=== PATIENT | female | born 1950 | race Hispanic/Latino ===

== ENCOUNTER → 2017-04-30 | Outpatient (CLI) | payer OTHER, MEDICARE ==
[~2017-04-30] MED LIST: ALBU8.5H8 PO; ATOR40TA71 PO; AZIT500T4 PO; CALC-724 PO; LEVO150T11 PO; OLAN10TA20 PO; RAMI2.5C15 PO; SITA100T12 PO; TERB250T51 PO; ZINC50TA64 PO
[2017-04-30 14:18] LABS: ALANINE AMINOTRANSFERASE 39 U/L (12-78); ASPARTATE AMINOTRANSFERASE 24 U/L (10-37)
== END | disposition home or self-care (01) ==
LOC: LAB 13:23
PROVIDERS: ATTEND Podiatrist
DX: B35.1 Tinea unguium (principal)
CPT/HCPCS: 36415; 84450; 84460

== ENCOUNTER 2017-06-13 12:23 | Inpatient (IN) | payer OTHER, MEDICARE ==
[~2017-06-13] VITALS: Ht 147.3 cm; Wt 71.5 kg
[2017-06-13 00:30] VITALS: BP 135/64
[2017-06-13] MEDS ORDERED: IPRATROPIUM/ALBUTEROL SULFATE 3 ML SOLUTION IH ONE (12:58)
[2017-06-13 13:12] LABS: APPEARANCE,URINE Clear (CLEAR); BILIRUBIN,URINE Negative (NEGATIVE); COLOR,URINE Yellow (YELLOW); GLUCOSE, URINE (UA) Negative (NEGATIVE); KETONES,URINE Negative (NEGATIVE); LEUKOCYTE ESTERASE ,URINE Trace (NEGATIVE); NITRATE,URINE Negative (NEGATIVE); OCCULT BLOOD,URINE Negative (NEGATIVE); PROTEIN,URINE Negative (NEGATIVE); UROBILINOGEN,URINE 0.2 mg/dL (0.2-1.0)
[2017-06-13 13:15] LABS: ABG BASE EXCESS 1.4 mmol/L (-2.0-3.0); ABG HCO3 25.7 mmol/L (21.0-28.0); ABG OXYGEN SATURATION 89.1 % (95.0-99.0); ABG PCO2 40 mmHg (32-45)
[2017-06-13 13:43] LABS: BASOPHILS % (AUTO) 0.4 % (0.0-5.0); EOSINOPHILS % (AUTO) 2.5 % (0.0-8.0); LYMPHOCYTES % (AUTO) 25.1 % (21.0-51.0); MEAN CORPUSCULAR HEMOGLOBIN 30.2 pg (27.0-33.0); MEAN CORPUSCULAR HGB CONC 35.8 g/dL (32.0-36.0); MEAN CORPUSCULAR VOLUME 84.4 fL (79-99); MONOCYTES % (AUTO) 11.4 % (3.0-13.0); NEUTROPHILS % (AUTO) 60.6 % (40.0-77.0); PLATELET COUNT (AUTO) 211 K/uL (130-400); RED CELL DISTRIBUTION WIDTH 13.1 % (11.0-15.5); WHITE BLOOD COUNT (AUTO) 9.8 K/uL (4.8-10.8)
[2017-06-13 13:48] LABS: BACTERIA,URINE Few /HPF (None Seen); RBC,URINE None Seen /HPF (0-1); SQUAMOUS EPITHELIAL CELL,UR 0-2 /HPF (0-2); WBC,URINE 0-1 /HPF (0-1)
[2017-06-13 13:50] LABS: CREATININE 0.9 mg/dL (0.5-1.5); POTASSIUM 4.3 mmol/L (3.5-5.1)
[2017-06-13 13:55] LABS: ALBUMIN 2.9 g/dL (3.5-5.0); BILIRUBIN,TOTAL 0.4 mg/dL (0.2-1.0); INR 0.95 (0.85-1.15); PARTIAL THROMBOPLASTIN TIME 25.5 SEC (26.3-35.5); TOTAL PROTEIN, SERUM 7.5 g/dL (6.0-8.3)
[2017-06-13 16:00] VITALS: BP 138/58
[2017-06-13] MEDS ORDERED: MAGNESIUM CITRATE 296 ML SOLUTION PO SCH (17:00)
[2017-06-13] MEDS ORDERED: SODIUM CHLORIDE 0.9% 10 ML VIAL IVP SCH (17:00)
[2017-06-13] MEDS ORDERED: ACETAMINOPHEN 325 MG TAB PO PRN ×2 (17:00)
[2017-06-13] MEDS ORDERED: ONDANSETRON HCL 4 MG/2 ML VIAL IVP PRN (17:00)
[2017-06-13] MEDS: GUAIFENESIN SUGAR-FREE 100 MG/5 ML UDCUP PO PRN (17:09)
[2017-06-13] MEDS: METHYLPREDNISOLONE SOD SUCC 125MG/2ML VIAL IVP SCH (17:09)
[2017-06-13] MEDS: IPRATROPIUM/ALBUTEROL SULFATE 3 ML SOLUTION IH SCH ×2 (18:26→22:10)
[2017-06-13 19:20] VITALS: BP 139/61
[2017-06-14] MEDS: IPRATROPIUM/ALBUTEROL SULFATE 3 ML SOLUTION IH SCH ×4 (01:58→13:50)
[2017-06-14] MEDS ORDERED: POTASSIUM CHLORIDE 10% ELIXIR 20 MEQ/15 ML UDCUP PO PRN (02:00)
[2017-06-14] MEDS ORDERED: POTASSIUM CHLORIDE 20 MEQ ERTAB PO PRN (02:00)
[2017-06-14] MEDS ORDERED: GLUCAGON 1MG KIT 1 MG ML IM PRN (02:00)
[2017-06-14] MEDS ORDERED: LIDOCAINE HCL-MPF 1% 2ML VIAL IVP PRN (02:00)
[2017-06-14] MEDS ORDERED: POTASSIUM CHLORIDE 20MEQ/100ML 100 ML IV PRN (02:00)
[2017-06-14] MEDS ORDERED: DEXTROSE 50%-WATER 50 ML DISP.SYRIN IV PRN (02:00)
[2017-06-14] MEDS: METHYLPREDNISOLONE SOD SUCC 125MG/2ML VIAL IVP SCH ×3 (02:17→16:41)
[2017-06-14 03:40] VITALS: BP 118/54
[2017-06-14 04:05] LABS: HEMATOCRIT 40.7 % (36-48); MEAN CORPUSCULAR HEMOGLOBIN 29.2 pg (27.0-33.0); MEAN CORPUSCULAR HGB CONC 34.1 g/dL (32.0-36.0); MEAN CORPUSCULAR VOLUME 85.8 fL (79-99); PLATELET COUNT (AUTO) 228 K/uL (130-400); RED BLOOD CELL COUNT(AUTO) 4.74 MIL/uL (4.00-5.50); RED CELL DISTRIBUTION WIDTH 13.1 % (11.0-15.5); WHITE BLOOD COUNT (AUTO) 7.7 K/uL (4.8-10.8)
[2017-06-14 04:15] LABS: POTASSIUM 4.2 mmol/L (3.5-5.1)
[2017-06-14] MEDS: INSULIN HUMULIN R 100 UNIT/ML 3ML SQ SCH ×4 (06:14→20:53)
[2017-06-14 08:00] VITALS: BP 139/57
[2017-06-14] MEDS: AZITHROMYCIN 500MG+NS 250ML 250 ML IV SCH (08:15)
[2017-06-14] MEDS: GUAIFENESIN SUGAR-FREE 100 MG/5 ML UDCUP PO PRN ×2 (08:15→20:25)
[2017-06-14] MEDS: FAMOTIDINE 20MG TAB 20 MG TAB PO SCH ×2 (08:15→20:26)
[2017-06-14 11:00] VITALS: BP 131/56
[2017-06-14] MEDS ORDERED: IOPAMIDOL-370 100 ML VIAL IV ONE (12:00)
[2017-06-14] MEDS ORDERED: ZINC50TA64 PO (13:51)
[2017-06-14] MEDS ORDERED: OLAN10TA20 PO (13:51)
[2017-06-14] MEDS ORDERED: ATOR40TA71 PO (13:51)
[2017-06-14] MEDS ORDERED: LEVO150T11 PO (13:51)
[2017-06-14] MEDS ORDERED: TERB250T51 PO (13:51)
[2017-06-14] MEDS ORDERED: CALC-724 PO (13:51)
[2017-06-14] MEDS ORDERED: ALBU8.5H8 PO (13:51)
[2017-06-14] MEDS ORDERED: SITA100T12 PO (13:51)
[2017-06-14] MEDS ORDERED: RAMI2.5C15 PO (13:51)
[2017-06-14 16:00] VITALS: BP 136/63
[2017-06-14 19:25] VITALS: BP 109/63
[2017-06-14] MEDS: ATORVASTATIN CALCIUM 40 MG TABLET PO SCH (20:26)
[2017-06-14] MEDS: OLANZAPINE 5 MG TAB PO SCH (20:26)
[2017-06-15 00:20] VITALS: BP 124/54
[2017-06-15] MEDS: METHYLPREDNISOLONE SOD SUCC 125MG/2ML VIAL IVP SCH ×3 (01:45→17:24)
[2017-06-15 03:20] VITALS: BP 134/64
[2017-06-15] MEDS: INSULIN HUMULIN R 100 UNIT/ML 3ML SQ SCH ×4 (06:14→22:06)
[2017-06-15 07:59] VITALS: BP 144/57
[2017-06-15] MEDS: TERBINAFINE HCL 250 MG PO SCH (09:00)
[2017-06-15] MEDS: CALCIUM 600 + VITAMIN D 400 TABLET PO SCH (09:30)
[2017-06-15] MEDS: LEVOTHYROXINE 150 MCG TABLET PO SCH (09:30)
[2017-06-15] MEDS: LINAGLIPTIN 5 MG TABLET PO SCH (09:31)
[2017-06-15] MEDS: LISINOPRIL 10 MG TABLET PO SCH (09:31)
[2017-06-15] MEDS: FAMOTIDINE 20MG TAB 20 MG TAB PO SCH ×2 (09:31→21:58)
[2017-06-15] MEDS: AZITHROMYCIN 500MG+NS 250ML 250 ML IV SCH (09:35)
[2017-06-15] MEDS ORDERED: AZIT500T4 PO (10:09)
[2017-06-15 11:30] VITALS: BP 132/83
[2017-06-15 16:00] VITALS: BP 148/46
[2017-06-15 19:25] VITALS: BP 157/71
[2017-06-15] MEDS: OLANZAPINE 5 MG TAB PO SCH (21:58)
[2017-06-15] MEDS: ATORVASTATIN CALCIUM 40 MG TABLET PO SCH (21:58)
[2017-06-15] MEDS: GUAIFENESIN SUGAR-FREE 100 MG/5 ML UDCUP PO PRN (21:58)
[2017-06-16 00:50] VITALS: BP 147/73
[2017-06-16] MEDS: METHYLPREDNISOLONE SOD SUCC 125MG/2ML VIAL IVP SCH ×2 (01:28→09:23)
[2017-06-16 04:15] VITALS: BP 151/73
[2017-06-16 07:30] VITALS: BP 146/76
[2017-06-16] MEDS: INSULIN HUMULIN R 100 UNIT/ML 3ML SQ SCH (07:30)
[2017-06-16] MEDS: TERBINAFINE HCL 250 MG PO SCH (09:00)
[2017-06-16] MEDS: AZITHROMYCIN 500MG+NS 250ML 250 ML IV SCH (09:22)
[2017-06-16] MEDS: LEVOTHYROXINE 150 MCG TABLET PO SCH (09:23)
[2017-06-16] MEDS: LINAGLIPTIN 5 MG TABLET PO SCH (09:23)
[2017-06-16] MEDS: LISINOPRIL 10 MG TABLET PO SCH (09:23)
[2017-06-16] MEDS: CALCIUM 600 + VITAMIN D 400 TABLET PO SCH (09:23)
[2017-06-16] MEDS: FAMOTIDINE 20MG TAB 20 MG TAB PO SCH (09:24)
[2017-06-16 11:00] VITALS: BP 139/61
== END 2017-06-16 12:25 | disposition home or self-care (01) | DRG 202 ==
LOC: EDH 12:23 → EDHIP 14:19 → OBSVTOIN 14:19 → 3AH 16:04
PROVIDERS: ADMIT Family Medicine; ATTEND Family Medicine
DX: J20.9 Acute bronchitis, unspecified (principal); E44.1 Mild protein-calorie malnutrition; E66.01 Morbid (severe) obesity due to excess calories; E03.9 Hypothyroidism, unspecified; E11.9 Type 2 diabetes mellitus without complications; E78.5 Hyperlipidemia, unspecified; F31.9 Bipolar disorder, unspecified; F41.9 Anxiety disorder, unspecified; I10 Essential (primary) hypertension; M81.0 Age-related osteoporosis without current pathological fracture; R09.02 Hypoxemia; Z77.22 Contact with and (suspected) exposure to environmental tobacco smoke (acute) (chronic); Z85.3 Personal history of malignant neoplasm of breast; Z90.11 Acquired absence of right breast and nipple; Z68.33 Body mass index [BMI] 33.0-33.9, adult; Z88.0 Allergy status to penicillin
CPT/HCPCS: 36415; 36600; 71046; 71275; 80048; 80053; 81001; 82550; 82803; 82948; 83605; 83880; 84484; 85025; 85027; 85610; 85730; 87804; 93005; 94640; 94664; J0456; J1815; J2930; Q9967

== ENCOUNTER 2018-02-20 16:36 | Emergency (ER) | payer OTHER, MEDICARE ==
[~2018-02-20 16:36] MED LIST changes: -RAMI2.5C15 PO; +RAMI2.5C16 PO
[2018-02-20] MEDS ORDERED: KETOROLAC TROMETHAMINE 30MG/ML ONE (18:57)
== END 2018-02-20 20:15 | disposition home or self-care (01) ==
LOC: EDH 16:36
DX: M17.11 Unilateral primary osteoarthritis, right knee (principal); F31.9 Bipolar disorder, unspecified; E11.9 Type 2 diabetes mellitus without complications; E78.5 Hyperlipidemia, unspecified; E07.9 Disorder of thyroid, unspecified; M81.0 Age-related osteoporosis without current pathological fracture; Z88.0 Allergy status to penicillin
CPT/HCPCS: 73562; 96372; 99283; J1885

== ENCOUNTER 2018-09-17 12:33 | Emergency (ER) | payer OTHER, MEDICARE ==
[2018-09-17] MEDS ORDERED: DEXAMETHASONE SOD PHOSPHATE 10MG/ML 1ML VIAL ONE (13:08)
[2018-09-17] MEDS ORDERED: KETOROLAC TROMETHAMINE 60 MG/2 ML VIAL ONE (13:08)
[2018-09-17] MEDS ORDERED: LIDOCAINE 5% TOPICAL PATCH TP ONE (13:08)
== END 2018-09-17 14:18 | disposition home or self-care (01) ==
LOC: EDH 12:33
DX: G89.29 Other chronic pain (principal); M54.5 Low back pain; F41.9 Anxiety disorder, unspecified; F31.9 Bipolar disorder, unspecified; E11.9 Type 2 diabetes mellitus without complications; E78.5 Hyperlipidemia, unspecified; M81.0 Age-related osteoporosis without current pathological fracture; E07.9 Disorder of thyroid, unspecified; Z90.49 Acquired absence of other specified parts of digestive tract; Z88.0 Allergy status to penicillin
CPT/HCPCS: 72100; 96372 ×2; 99284; J1100; J1885

== ENCOUNTER 2019-03-07 13:11 | Emergency (ER) | payer OTHER, MEDICARE | END 2019-03-07 14:57 | disposition home or self-care (01) | LOC: EDH 13:11 | DX: R04.0 Epistaxis (principal); M81.0 Age-related osteoporosis without current pathological fracture; E78.5 Hyperlipidemia, unspecified; E11.9 Type 2 diabetes mellitus without complications; F31.9 Bipolar disorder, unspecified; F41.9 Anxiety disorder, unspecified; E07.9 Disorder of thyroid, unspecified; Z88.0 Allergy status to penicillin ==

== ENCOUNTER → 2020-07-13 | Outpatient (CLI) | payer OTHER, MEDICARE ==
[~2020-07-13] MED LIST changes: +CALC-1158 PO; -CALC-724 PO; -RAMI2.5C16 PO; +RAMI2.5C55 PO
== END | disposition home or self-care (01) ==
LOC: SHCH 12:52
PROVIDERS: ATTEND Internal Medicine Cardiovascular Disease
DX: R07.9 Chest pain, unspecified (principal)
CPT/HCPCS: 93306; 93356

== ENCOUNTER 2021-04-26 15:24 | Emergency (ER) | payer OTHER, MEDICARE ==
[~2021-04-26] VITALS: Ht 147.3 cm; Wt 74.8 kg
[~2021-04-26 15:24] MED LIST changes: -OLAN10TA20 PO; +OLAN10TA73 PO; -TERB250T51 PO; +TERB250T89 PO
[2021-04-26 17:40] LABS: BASOPHILS % (AUTO) 0.5 % (0.0-5.0); EOSINOPHILS % (AUTO) 2.3 % (0.0-8.0); HEMATOCRIT 39.6 % (36-48); LYMPHOCYTES % (AUTO) 26.1 % (21.0-51.0); MEAN CORPUSCULAR HEMOGLOBIN 29.3 pg (27.0-33.0); MEAN CORPUSCULAR HGB CONC 32.8 g/dL (32.0-36.0); MEAN CORPUSCULAR VOLUME 89.4 fL (79-99); MONOCYTES % (AUTO) 8.9 % (3.0-13.0); NEUTROPHILS % (AUTO) 61.7 % (40.0-77.0); PLATELET COUNT (AUTO) 249 K/uL (130-400); RED BLOOD CELL COUNT(AUTO) 4.43 MIL/uL (4.00-5.50); RED CELL DISTRIBUTION WIDTH 12.9 % (11.0-15.5); WHITE BLOOD COUNT (AUTO) 12.1 K/uL (4.8-10.8)
[2021-04-26 17:52] LABS: POTASSIUM 4.1 mmol/L (3.5-5.1)
[2021-04-26] MEDS ORDERED: AMLODIPINE 5 MG TAB PO ONE (18:00)
[2021-04-26 18:01] LABS: BILIRUBIN,TOTAL 0.2 mg/dL (0.2-1.0); TOTAL PROTEIN, SERUM 8.4 g/dL (6.0-8.3)
[2021-04-26] MEDS ORDERED: ACET-2247 PO (18:52)
[2021-04-26] MEDS ORDERED: CYCL10TA16 PO (18:52)
[2021-04-26 19:04] VITALS: BP 147/60
== END 2021-04-26 19:17 | disposition home or self-care (01) ==
LOC: EDH 15:24
DX: S20.212A Contusion of left front wall of thorax, initial encounter (principal); S80.02XA Contusion of left knee, initial encounter; E11.9 Type 2 diabetes mellitus without complications; E78.00 Pure hypercholesterolemia, unspecified; F03.90 Unspecified dementia, unspecified severity, without behavioral disturbance, psychotic disturbance, mood disturbance, and anxiety; F31.9 Bipolar disorder, unspecified; I10 Essential (primary) hypertension; Z88.0 Allergy status to penicillin; Z79.84 Long term (current) use of oral hypoglycemic drugs; W18.39XA Other fall on same level, initial encounter; Y93.89 Activity, other specified; Y92.89 Other specified places as the place of occurrence of the external cause; Y99.8 Other external cause status
CPT/HCPCS: 36415; 71250; 73562; 80053; 84484; 85025; 93005

== ENCOUNTER 2021-08-25 18:18 | Emergency (ER) | payer OTHER, MEDICARE ==
[~2021-08-25] VITALS: Ht 152.4 cm; Wt 75.7 kg
[~2021-08-25 18:18] MED LIST changes: +ACET-2247 PO; +CYCL10TA16 PO
[2021-08-25 18:57] LABS: BASOPHILS % (AUTO) 0.4 % (0.0-5.0); EOSINOPHILS % (AUTO) 2.4 % (0.0-8.0); HEMATOCRIT 40.6 % (36-48); LYMPHOCYTES % (AUTO) 24.3 % (21.0-51.0); MEAN CORPUSCULAR HEMOGLOBIN 28.9 pg (27.0-33.0); MEAN CORPUSCULAR HGB CONC 32.8 g/dL (32.0-36.0); MEAN CORPUSCULAR VOLUME 88.1 fL (79-99); MONOCYTES % (AUTO) 8.3 % (3.0-13.0); NEUTROPHILS % (AUTO) 64.1 % (40.0-77.0); PLATELET COUNT (AUTO) 262 K/uL (130-400); RED BLOOD CELL COUNT(AUTO) 4.61 MIL/uL (4.00-5.50); WHITE BLOOD COUNT (AUTO) 13.4 K/uL (4.8-10.8)
[2021-08-25 19:11] LABS: CREATININE 1.3 mg/dL (0.5-1.5); POTASSIUM 3.7 mmol/L (3.5-5.1)
[2021-08-25 19:16] LABS: ALBUMIN 3.5 g/dL (3.5-5.0); BILIRUBIN,TOTAL 0.3 mg/dL (0.2-1.0); TOTAL PROTEIN, SERUM 7.9 g/dL (6.0-8.3)
[2021-08-25] MEDS ORDERED: AZITHROMYCIN 250 MG TABLET PO ONE (21:00)
[2021-08-25] MEDS ORDERED: AZIT1PAC7 PO (21:36)
[2021-08-25] MEDS ORDERED: LEVA1.2525 IH (21:36)
[2021-08-25 21:44] VITALS: BP 139/45
== END 2021-08-25 21:56 | disposition home or self-care (01) ==
LOC: EDH 18:18
DX: J44.1 Chronic obstructive pulmonary disease with (acute) exacerbation (principal); Z20.822 Contact with and (suspected) exposure to COVID-19; E11.9 Type 2 diabetes mellitus without complications; E78.00 Pure hypercholesterolemia, unspecified; F03.90 Unspecified dementia, unspecified severity, without behavioral disturbance, psychotic disturbance, mood disturbance, and anxiety; I10 Essential (primary) hypertension; M19.90 Unspecified osteoarthritis, unspecified site; Z79.84 Long term (current) use of oral hypoglycemic drugs; Z85.3 Personal history of malignant neoplasm of breast; Z88.0 Allergy status to penicillin
CPT/HCPCS: 36415; 71045; 80053; 83605; 84484; 85025; 87040 ×2; 87635; 87804 ×2; 93005; 99285; C9803

== ENCOUNTER 2021-09-20 18:50 | Emergency (ER) | payer OTHER, MEDICARE ==
[~2021-09-20] VITALS: Ht 147.3 cm; Wt 80.7 kg
[~2021-09-20 18:50] MED LIST changes: +AZIT1PAC7 PO; +KETO10TA2 PO; +LEVA1.2525 IH
[2021-09-20 19:39] LABS: BASOPHILS % (AUTO) 0.3 % (0.0-5.0); EOSINOPHILS % (AUTO) 2.3 % (0.0-8.0); HEMATOCRIT 36.9 % (36-48); MEAN CORPUSCULAR HEMOGLOBIN 29.2 pg (27.0-33.0); MEAN CORPUSCULAR HGB CONC 33.1 g/dL (32.0-36.0); MEAN CORPUSCULAR VOLUME 88.3 fL (79-99); MONOCYTES % (AUTO) 12.9 % (3.0-13.0); PLATELET COUNT (AUTO) 236 K/uL (130-400); RED BLOOD CELL COUNT(AUTO) 4.18 MIL/uL (4.00-5.50); RED CELL DISTRIBUTION WIDTH 13.4 % (11.0-15.5); WHITE BLOOD COUNT (AUTO) 10.7 K/uL (4.8-10.8)
[2021-09-20 19:58] LABS: CREATININE 1.3 mg/dL (0.5-1.5); POTASSIUM 4.1 mmol/L (3.5-5.1)
[2021-09-20 20:14] LABS: ALBUMIN 3.5 g/dL (3.5-5.0); BILIRUBIN,TOTAL 0.2 mg/dL (0.2-1.0); TOTAL PROTEIN, SERUM 7.9 g/dL (6.0-8.3)
[2021-09-20] MEDS ORDERED: D-ME118S47 PO (20:47)
[2021-09-20] MEDS ORDERED: AZIT1PAC7 PO (20:47)
[2021-09-20 20:59] VITALS: BP 148/80
== END 2021-09-20 21:02 | disposition home or self-care (01) ==
LOC: EDH 18:50
DX: U07.1 COVID-19 (principal); F41.9 Anxiety disorder, unspecified; M19.90 Unspecified osteoarthritis, unspecified site; J44.9 Chronic obstructive pulmonary disease, unspecified; F03.90 Unspecified dementia, unspecified severity, without behavioral disturbance, psychotic disturbance, mood disturbance, and anxiety; E11.9 Type 2 diabetes mellitus without complications; E78.00 Pure hypercholesterolemia, unspecified; I10 Essential (primary) hypertension; M81.0 Age-related osteoporosis without current pathological fracture; Z98.890 Other specified postprocedural states; Z79.899 Other long term (current) drug therapy; Z79.84 Long term (current) use of oral hypoglycemic drugs; Z88.0 Allergy status to penicillin
CPT/HCPCS: 36415; 71045; 80053; 83605; 84484; 85025; 85378; 87040 ×2; 87635; 87804 ×2; 93005; 99285; C9803

== ENCOUNTER 2021-11-21 17:35 | Emergency (ER) | payer OTHER, MEDICARE ==
[~2021-11-21] VITALS: Ht 147.3 cm; Wt 74.8 kg
[~2021-11-21 17:35] MED LIST changes: +D-ME118S47 PO
[2021-11-21 19:43] VITALS: BP 153/75
== END 2021-11-21 20:18 | disposition left against medical advice (07) ==
LOC: EDH 17:35
DX: R22.0 Localized swelling, mass and lump, head (principal); Z53.21 Procedure and treatment not carried out due to patient leaving prior to being seen by health care provider

== ENCOUNTER 2022-08-09 19:39 | Emergency (ER) | payer OTHER, MEDICARE ==
[~2022-08-09] VITALS: Ht 149.9 cm; Wt 78.9 kg
[2022-08-09 20:15] LABS: HEMATOCRIT 37.6 % (36-48); MEAN CORPUSCULAR HEMOGLOBIN 29.3 pg (27.0-33.0); MEAN CORPUSCULAR VOLUME 88.9 fL (79-99); RED BLOOD CELL COUNT(AUTO) 4.23 MIL/uL (4.00-5.50); RED CELL DISTRIBUTION WIDTH 12.9 % (11.0-15.5)
[2022-08-09 20:28] LABS: POTASSIUM 4.2 mmol/L (3.5-5.1)
[2022-08-09 20:40] LABS: ALBUMIN 3.7 g/dL (3.5-5.0)
[2022-08-09] MEDS ORDERED: IPRATROPIUM/ALBUTEROL SULFATE 3 ML SOLUTION IH ONE ×2 (21:00→23:30)
[2022-08-09] MEDS ORDERED: SOLU-MEDROL 125MG VIAL IVP ONE (21:00)
[2022-08-09] MEDS ORDERED: PRED20TA3 PO (23:48)
[2022-08-10 00:04] VITALS: BP 138/68
== END 2022-08-10 00:03 | disposition home or self-care (01) ==
LOC: EDH 19:39
DX: J44.1 Chronic obstructive pulmonary disease with (acute) exacerbation (principal); R06.2 Wheezing; I10 Essential (primary) hypertension; E11.9 Type 2 diabetes mellitus without complications; E78.00 Pure hypercholesterolemia, unspecified; F03.90 Unspecified dementia, unspecified severity, without behavioral disturbance, psychotic disturbance, mood disturbance, and anxiety; M19.90 Unspecified osteoarthritis, unspecified site; Z20.822 Contact with and (suspected) exposure to COVID-19; Z79.84 Long term (current) use of oral hypoglycemic drugs; Z79.899 Other long term (current) drug therapy; Z98.890 Other specified postprocedural states; Z88.0 Allergy status to penicillin; Z85.3 Personal history of malignant neoplasm of breast
CPT/HCPCS: 99285; 96374; 71045; 87635; 83735; 84484; 80053; 83880; 85027; 87804 ×2; 36415; 93005; 94640 ×2; C9803; J2930

== ENCOUNTER 2022-10-27 07:33 | Emergency (ER) | payer OTHER, MEDICARE ==
[~2022-10-27] VITALS: Ht 147.3 cm; Wt 78.6 kg
[~2022-10-27 07:33] MED LIST changes: -ACET-2247 PO; -ALBU8.5H8 PO; +ASCO100031 PO; +ATOR40TA69 PO; -ATOR40TA71 PO; -AZIT1PAC7 PO; -AZIT500T4 PO; -CALC-1158 PO; -CYCL10TA16 PO; -D-ME118S47 PO; +DONE10TA43 PO; +ESCI20TA38 PO; +IPRA4AER IH; -KETO10TA2 PO; -LEVA1.2525 IH; -LEVO150T11 PO; +LEVO88CA4 PO; -TERB250T89 PO; -ZINC50TA64 PO
[2022-10-27] MEDS ORDERED: IBUPROFEN 600 MG TABLET PO ONE (09:00)
[2022-10-27] MEDS ORDERED: DIAZEPAM 5 MG TABLET PO ONE (10:30)
[2022-10-27 12:28] VITALS: BP 149/58; PULSE 70; RESP 18; O2SAT 99
== END 2022-10-27 12:43 | disposition home or self-care (01) ==
LOC: EDH 07:33
DX: M62.830 Muscle spasm of back (principal); E11.9 Type 2 diabetes mellitus without complications; E78.00 Pure hypercholesterolemia, unspecified; I10 Essential (primary) hypertension; J44.9 Chronic obstructive pulmonary disease, unspecified; Z79.84 Long term (current) use of oral hypoglycemic drugs; Z79.899 Other long term (current) drug therapy; Z85.3 Personal history of malignant neoplasm of breast; Z88.0 Allergy status to penicillin; Z90.49 Acquired absence of other specified parts of digestive tract
CPT/HCPCS: 73030

== ENCOUNTER 2022-10-30 09:31 | Emergency (ER) | payer OTHER, MEDICARE ==
[~2022-10-30] VITALS: Ht 149.9 cm; Wt 78.9 kg
[2022-10-30 10:16] LABS: BASOPHILS # (AUTO) 0.03 K/uL (0.00-0.20); BASOPHILS % (AUTO) 0.2 % (0.0-5.0); EOSINOPHILS # (AUTO) 0.03 K/uL (0.00-0.70); EOSINOPHILS % (AUTO) 0.2 % (0.0-8.0); HEMATOCRIT 38.1 % (36-48); IMMATURE GRANULOCYTE ABSOLUTE 0.08 K/uL (0-1); LYMPHOCYTES # (AUTO) 0.7 K/uL (1.0-4.8); LYMPHOCYTES % (AUTO) 5.7 % (21.0-51.0); MEAN CORPUSCULAR HEMOGLOBIN 28.5 pg (27.0-33.0); MEAN CORPUSCULAR HGB CONC 33.3 g/dL (32.0-36.0); MEAN CORPUSCULAR VOLUME 85.4 fL (79-99); MONOCYTES # (AUTO) 0.9 K/uL (0.1-1.0); MONOCYTES % (AUTO) 7.2 % (3.0-13.0); NEUTROPHILS # (AUTO) 10.9 K/uL (1.8-7.7); NEUTROPHILS % (AUTO) 86.1 % (40.0-77.0); PLATELET COUNT (AUTO) 212 K/uL (130-400); RED BLOOD CELL COUNT(AUTO) 4.46 MIL/uL (4.00-5.50); RED CELL DISTRIBUTION WIDTH 12.9 % (11.0-15.5); WHITE BLOOD COUNT (AUTO) 12.7 K/uL (4.8-10.8)
[2022-10-30 10:27] LABS: CREATININE 1.1 mg/dL (0.5-1.5); POTASSIUM 4.2 mmol/L (3.5-5.1)
[2022-10-30 10:32] LABS: ALBUMIN 3.2 g/dL (3.5-5.0); BILIRUBIN,TOTAL 0.5 mg/dL (0.2-1.0); TOTAL PROTEIN, SERUM 7.6 g/dL (6.0-8.3)
[2022-10-30 11:57] LABS: APPEARANCE,URINE CLEAR (CLEAR); BILIRUBIN,URINE NEGATIVE (NEGATIVE); COLOR,URINE LIGHT-YELLOW (YELLOW); GLUCOSE, URINE (UA) NEGATIVE (NEGATIVE); KETONES,URINE NEGATIVE (NEGATIVE); LEUKOCYTE ESTERASE ,URINE 250 Leu/uL (NEGATIVE); NITRATE,URINE 2+ (NEGATIVE); OCCULT BLOOD,URINE SMALL (NEGATIVE); PH,URINE 5.5 (5.0-8.0); PROTEIN,URINE 10 mg/dL (NEGATIVE); UROBILINOGEN,URINE 0.2 mg/dL (0.2-1.0)
[2022-10-30 11:58] LABS: ADD UA MICROSCOPIC YES
[2022-10-30 12:03] LABS: BACTERIA,URINE MOD /HPF (None Seen); SQUAMOUS EPITHELIAL CELL,UR RARE /HPF (0-2); WBC,URINE 26-50 /HPF (0-1)
[2022-10-30] MEDS ORDERED: PHEN-847 PO (14:50)
[2022-10-30] MEDS ORDERED: CEPH500T PO (14:50)
[2022-10-30] MEDS ORDERED: CEFTRIAXONE 1G VIAL IVPB ONE (15:00)
[2022-10-30 15:25] VITALS: BP 158/71; PULSE 91; RESP 22; O2SAT 94
[2022-10-30] MEDS ORDERED: 0.9%NACL 1000ML 1,000 ML IV SCH (16:30)
== END 2022-10-30 16:30 | disposition home or self-care (01) ==
LOC: EDH 09:31
DX: N39.0 Urinary tract infection, site not specified (principal); E03.9 Hypothyroidism, unspecified; E11.9 Type 2 diabetes mellitus without complications; E78.00 Pure hypercholesterolemia, unspecified; F03.93 Unspecified dementia, unspecified severity, with mood disturbance; I10 Essential (primary) hypertension; J44.9 Chronic obstructive pulmonary disease, unspecified; Z79.84 Long term (current) use of oral hypoglycemic drugs; Z79.890 Hormone replacement therapy; Z79.899 Other long term (current) drug therapy; Z85.3 Personal history of malignant neoplasm of breast; Z88.0 Allergy status to penicillin; Z90.49 Acquired absence of other specified parts of digestive tract
CPT/HCPCS: 99285; 71045; 84484 ×2; 80053; 83880; 85025; 87077; 87088; 87186; 83605; 81001; 36415; 51702; 93005 ×2; J0696

== ENCOUNTER 2023-01-18 06:48 | Inpatient (IN) | payer OTHER, MEDICARE ==
[~2023-01-18] VITALS: Ht 149.9 cm; Wt 79.6 kg
[~2023-01-18 06:48] MED LIST changes: +CEPH500T PO; +PHEN-847 PO
[2023-01-18 07:18] LABS: BASOPHILS # (AUTO) 0.05 K/uL (0.00-0.20); BASOPHILS % (AUTO) 0.3 % (0.0-5.0); EOSINOPHILS # (AUTO) 0.04 K/uL (0.00-0.70); EOSINOPHILS % (AUTO) 0.2 % (0.0-8.0); HEMATOCRIT 37.5 % (36-48); LYMPHOCYTES # (AUTO) 3.1 K/uL (1.0-4.8); LYMPHOCYTES % (AUTO) 18.3 % (21.0-51.0); MEAN CORPUSCULAR HEMOGLOBIN 29.3 pg (27.0-33.0); MEAN CORPUSCULAR HGB CONC 33.1 g/dL (32.0-36.0); MEAN CORPUSCULAR VOLUME 88.7 fL (79-99); MONOCYTES # (AUTO) 1.6 K/uL (0.1-1.0); MONOCYTES % (AUTO) 9.4 % (3.0-13.0); NEUTROPHILS # (AUTO) 12.2 K/uL (1.8-7.7); NEUTROPHILS % (AUTO) 71.2 % (40.0-77.0); PLATELET COUNT (AUTO) 220 K/uL (130-400); RED BLOOD CELL COUNT(AUTO) 4.23 MIL/uL (4.00-5.50); RED CELL DISTRIBUTION WIDTH 13.4 % (11.0-15.5); WHITE BLOOD COUNT (AUTO) 17.2 K/uL (4.8-10.8)
[2023-01-18] MEDS ORDERED: LACTATED RINGERS 1000ML 1,000 ML IV ONE (07:30)
[2023-01-18] MEDS ORDERED: CEFTRIAXONE 2GM VIAL IVPB ONE (07:30)
[2023-01-18 07:32] LABS: ALBUMIN 3.2 g/dL (3.5-5.0); BILIRUBIN,TOTAL 0.6 mg/dL (0.2-1.0); CREATININE 1.4 mg/dL (0.5-1.5); POTASSIUM 4.1 mmol/L (3.5-5.1); TOTAL PROTEIN, SERUM 7.8 g/dL (6.0-8.3)
[2023-01-18] MEDS ORDERED: ATOR-2 PO (07:38)
[2023-01-18] MEDS ORDERED: CALC-1125 PO (07:38)
[2023-01-18] MEDS ORDERED: FLUT1BLS IH (07:38)
[2023-01-18 07:56] LABS: B-TYPE NATRIURETIC PEPTIDE 18 pg/mL (0-100)
[2023-01-18 09:42] LABS: APPEARANCE,URINE CLEAR (CLEAR); BILIRUBIN,URINE NEGATIVE (NEGATIVE); COLOR,URINE LIGHT-YELLOW (YELLOW); GLUCOSE, URINE (UA) NEGATIVE (NEGATIVE); KETONES,URINE NEGATIVE (NEGATIVE); LEUKOCYTE ESTERASE ,URINE 500 Leu/uL (NEGATIVE); NITRATE,URINE 2+ (NEGATIVE); OCCULT BLOOD,URINE MODERATE (NEGATIVE); PROTEIN,URINE 10 mg/dL (NEGATIVE); UROBILINOGEN,URINE 0.2 mg/dL (0.2-1.0)
[2023-01-18 10:05] LABS: ADD UA MICROSCOPIC YES
[2023-01-18 10:14] LABS: BACTERIA,URINE FEW /HPF (None Seen); SQUAMOUS EPITHELIAL CELL,UR RARE /HPF (0-2); WBC,URINE 26-50 /HPF (0-1)
[2023-01-18] MEDS ORDERED: ONDANSETRON 4MG INJ IVP PRN (10:30)
[2023-01-18] MEDS ORDERED: ZOSYN 3.375GM +NS 50ML IVPB SCH (10:30)
[2023-01-18 14:30] VITALS: BP 150/56; PULSE 81; RESP 24
[2023-01-18] MEDS: ACETAMINOPHEN 325 MG TAB PO PRN (15:47)
[2023-01-18 16:00] VITALS: BP 138/70; PULSE 79; RESP 22
[2023-01-18 20:00] VITALS: BP 138/50; PULSE 82; RESP 18
[2023-01-18] MEDS: ATORVASTATIN 40 MG TABLET PO SCH (20:19)
[2023-01-18] MEDS: DONEPEZIL HCL 5 MG TAB PO SCH (20:19)
[2023-01-18] MEDS: INSULIN HUMULIN R 100 UNIT/ML 3ML SQ SCH (20:59)
[2023-01-18] MEDS ORDERED: NON-FORMULARY MEDICATION 1 EACH (Atorvastatin Calcium 80 MG) PO SCH (21:00)
[2023-01-18] MEDS ORDERED: NON-FORMULARY MEDICATION 1 EACH (Donepezil HCl 10 MG) PO SCH (21:00)
[2023-01-19] VITALS (9 sets, daily range): BP systolic 55–171; BP diastolic 49–89; PULSE 60–90; RESP 16–20; TEMP 100.7; O2SAT 98
[2023-01-19] MEDS: ACETAMINOPHEN 325 MG TAB PO PRN ×2 (00:04→15:51)
[2023-01-19 05:28] LABS: BASOPHILS # (AUTO) 0.04 K/uL (0.00-0.20); BASOPHILS % (AUTO) 0.4 % (0.0-5.0); EOSINOPHILS # (AUTO) 0.14 K/uL (0.00-0.70); EOSINOPHILS % (AUTO) 1.3 % (0.0-8.0); HEMATOCRIT 35.9 % (36-48); IMMATURE GRANULOCYTE ABSOLUTE 0.05 K/uL (0-1); LYMPHOCYTES # (AUTO) 2.2 K/uL (1.0-4.8); LYMPHOCYTES % (AUTO) 19.5 % (21.0-51.0); MEAN CORPUSCULAR HEMOGLOBIN 28.8 pg (27.0-33.0); MEAN CORPUSCULAR HGB CONC 31.2 g/dL (32.0-36.0); MEAN CORPUSCULAR VOLUME 92.3 fL (79-99); MONOCYTES # (AUTO) 1.2 K/uL (0.1-1.0); MONOCYTES % (AUTO) 10.8 % (3.0-13.0); NEUTROPHILS # (AUTO) 7.5 K/uL (1.8-7.7); NEUTROPHILS % (AUTO) 67.6 % (40.0-77.0); PLATELET COUNT (AUTO) 219 K/uL (130-400); RED BLOOD CELL COUNT(AUTO) 3.89 MIL/uL (4.00-5.50); RED CELL DISTRIBUTION WIDTH 13.4 % (11.0-15.5); WHITE BLOOD COUNT (AUTO) 11.1 K/uL (4.8-10.8)
[2023-01-19 05:45] LABS: ALBUMIN 2.6 g/dL (3.5-5.0); BILIRUBIN,TOTAL 0.4 mg/dL (0.2-1.0); CREATININE 1.3 mg/dL (0.5-1.5); MAGNESIUM 1.9 mg/dL (1.80-2.40); POTASSIUM 3.9 mmol/L (3.5-5.1); TOTAL PROTEIN, SERUM 6.9 g/dL (6.0-8.3)
[2023-01-19] MEDS: LEVOTHYROXINE 88 MCG TABLET PO SCH (06:36)
[2023-01-19] MEDS: INSULIN HUMULIN R 100 UNIT/ML 3ML SQ SCH ×4 (06:37→21:01)
[2023-01-19] MEDS ORDERED: CEFTRIAXONE 2GM VIAL IVPB SCH (08:00)
[2023-01-19] MEDS: ENOXAPARIN SODIUM 30 MG/0.3 ML SQ SCH (08:17)
[2023-01-19] MEDS: LINAGLIPTIN 5 MG TABLET PO SCH (08:17)
[2023-01-19] MEDS: CITALOPRAM 20 MG TABLET PO SCH (08:17)
[2023-01-19] MEDS: ASCORBIC ACID 500 MG TAB PO SCH (08:17)
[2023-01-19] MEDS: OLANZAPINE 5 MG TAB PO SCH (08:17)
[2023-01-19] MEDS: CALCIUM CARB 500MG PO SCH (08:18)
[2023-01-19] MEDS: CEFTRIAXONE 1G VIAL IVPB SCH (08:18)
[2023-01-19] MEDS: LISINOPRIL 5 MG TABLET PO SCH (08:18)
[2023-01-19] MEDS ORDERED: NON-FORMULARY MEDICATION 1 EACH (Escitalopram Oxalate 20 MG) PO SCH (09:00)
[2023-01-19] MEDS ORDERED: NON-FORMULARY MEDICATION 1 EACH (Levothyroxine Sodium (Levothyroxine) 88 MCG) PO SCH (09:00)
[2023-01-19] MEDS ORDERED: NON-FORMULARY MEDICATION 1 EACH (Ascorbic Acid (Vitamin C) 1,000 MG) PO SCH (09:00)
[2023-01-19] MEDS ORDERED: NON-FORMULARY MEDICATION 1 EACH (Sitagliptin Phosphate (Januvia) 100 MG) PO SCH (09:00)
[2023-01-19] MEDS ORDERED: NON-FORMULARY MEDICATION 1 EACH (Ramipril 2.5 MG) PO SCH (09:00)
[2023-01-19] MEDS ORDERED: NON-FORMULARY MEDICATION 1 EACH (Calcium Carbonate (Calcium) 600 MG) PO SCH (09:00)
[2023-01-19] MEDS ORDERED: OLANZAPINE 10 MG PO SCH (09:00)
[2023-01-19] MEDS: FLUTICASONE/VILANTEROL 1 EACH BLST.W.DEV IH SCH (10:09)
[2023-01-19] MEDS: MAGNESIUM 2GM PREMIX 50ML 50 ML IV PRN (15:31)
[2023-01-19] MEDS: DONEPEZIL HCL 5 MG TAB PO SCH (20:28)
[2023-01-19] MEDS: MORPHINE 2 MG SYG IVP PRN (20:29)
[2023-01-19] MEDS: ATORVASTATIN 40 MG TABLET PO SCH (20:29)
[2023-01-20] VITALS (7 sets, daily range): BP systolic 137–156; BP diastolic 48–68; PULSE 65–77; RESP 16–18; O2SAT 96
[2023-01-20] MEDS: LEVOTHYROXINE 88 MCG TABLET PO SCH (06:07)
[2023-01-20] MEDS: INSULIN HUMULIN R 100 UNIT/ML 3ML SQ SCH ×4 (06:09→20:33)
[2023-01-20] MEDS: LISINOPRIL 5 MG TABLET PO SCH (08:11)
[2023-01-20] MEDS: CALCIUM CARB 500MG PO SCH (08:11)
[2023-01-20] MEDS: OLANZAPINE 5 MG TAB PO SCH (08:11)
[2023-01-20] MEDS: CITALOPRAM 20 MG TABLET PO SCH (08:12)
[2023-01-20] MEDS: ASCORBIC ACID 500 MG TAB PO SCH (08:12)
[2023-01-20] MEDS: LINAGLIPTIN 5 MG TABLET PO SCH (08:12)
[2023-01-20] MEDS: ENOXAPARIN SODIUM 30 MG/0.3 ML SQ SCH (08:13)
[2023-01-20] MEDS: CEFTRIAXONE 1G VIAL IVPB SCH (08:14)
[2023-01-20] MEDS: FLUTICASONE/VILANTEROL 1 EACH BLST.W.DEV IH SCH (08:26)
[2023-01-20] MEDS: MORPHINE 2 MG SYG IVP PRN ×2 (11:07→19:39)
[2023-01-20 12:18] LABS: HEMATOCRIT 38.5 % (36-48); MEAN CORPUSCULAR HEMOGLOBIN 29.2 pg (27.0-33.0); MEAN CORPUSCULAR HGB CONC 32.2 g/dL (32.0-36.0); MEAN CORPUSCULAR VOLUME 90.6 fL (79-99); RED BLOOD CELL COUNT(AUTO) 4.25 MIL/uL (4.00-5.50); RED CELL DISTRIBUTION WIDTH 13.2 % (11.0-15.5); WHITE BLOOD COUNT (AUTO) 10.5 K/uL (4.8-10.8)
[2023-01-20 12:51] LABS: POTASSIUM 4.1 mmol/L (3.5-5.1)
[2023-01-20] MEDS ORDERED: 0.9%NACL 50ML IV SCH (15:00)
[2023-01-20] MEDS: ZOSYN 3.375GM +NS 50ML IVPB SCH ×2 (16:05→22:27)
[2023-01-20] MEDS: DONEPEZIL HCL 5 MG TAB PO SCH (20:32)
[2023-01-20] MEDS: ATORVASTATIN 40 MG TABLET PO SCH (20:32)
[2023-01-20] MEDS ORDERED: IOHEXOL-350 75 ML VIAL IV ONE (20:45)
[2023-01-21] VITALS (10 sets, daily range): BP systolic 122–159; BP diastolic 46–74; PULSE 61–74; RESP 16–19; O2SAT 95–98
[2023-01-21] MEDS: LEVOTHYROXINE 88 MCG TABLET PO SCH (05:51)
[2023-01-21] MEDS: ZOSYN 3.375GM +NS 50ML IVPB SCH ×3 (05:51→21:37)
[2023-01-21] MEDS: INSULIN HUMULIN R 100 UNIT/ML 3ML SQ SCH ×4 (05:52→21:36)
[2023-01-21 06:20] LABS: MEAN CORPUSCULAR HEMOGLOBIN 29.2 pg (27.0-33.0); MEAN CORPUSCULAR VOLUME 91.4 fL (79-99); RED BLOOD CELL COUNT(AUTO) 3.83 MIL/uL (4.00-5.50); RED CELL DISTRIBUTION WIDTH 13.2 % (11.0-15.5); WHITE BLOOD COUNT (AUTO) 9.3 K/uL (4.8-10.8)
[2023-01-21 06:30] LABS: CREATININE 1.2 mg/dL (0.5-1.5); MAGNESIUM 1.9 mg/dL (1.80-2.40); POTASSIUM 4.6 mmol/L (3.5-5.1)
[2023-01-21] MEDS: ENOXAPARIN SODIUM 30 MG/0.3 ML SQ SCH (08:31)
[2023-01-21] MEDS: LINAGLIPTIN 5 MG TABLET PO SCH (08:31)
[2023-01-21] MEDS: OLANZAPINE 5 MG TAB PO SCH (08:32)
[2023-01-21] MEDS: ASCORBIC ACID 500 MG TAB PO SCH (08:32)
[2023-01-21] MEDS: CITALOPRAM 20 MG TABLET PO SCH (08:32)
[2023-01-21] MEDS: CALCIUM CARB 500MG PO SCH (08:32)
[2023-01-21] MEDS: LISINOPRIL 5 MG TABLET PO SCH (08:33)
[2023-01-21] MEDS: FLUTICASONE/VILANTEROL 1 EACH BLST.W.DEV IH SCH (08:37)
[2023-01-21] MEDS: MAGNESIUM 2GM PREMIX 50ML 50 ML IV PRN (10:18)
[2023-01-21] MEDS: MORPHINE 2 MG SYG IVP PRN (19:00)
[2023-01-21] MEDS ORDERED: LACTULOSE 20 GM/30 ML UDCUP PO ONE (20:30)
[2023-01-21] MEDS ORDERED: PEG 3350/NA SULF,BICARB,CL/KCL 4000 ML SOLN PO ONE (20:30)
[2023-01-21] MEDS: ATORVASTATIN 40 MG TABLET PO SCH (21:37)
[2023-01-21] MEDS: BISACODYL 5 MG TABLET.DR PO SCH (21:37)
[2023-01-21] MEDS: DONEPEZIL HCL 5 MG TAB PO SCH (21:37)
[2023-01-22] VITALS (25 sets, daily range): BP systolic 128–192; BP diastolic 44–75; PULSE 58–97; RESP 16–20; O2SAT 94–99
[2023-01-22] MEDS: BISACODYL 5 MG TABLET.DR PO SCH ×2 (00:36→20:07)
[2023-01-22] MEDS: LEVOTHYROXINE 88 MCG TABLET PO SCH (05:27)
[2023-01-22] MEDS: ZOSYN 3.375GM +NS 50ML IVPB SCH ×3 (05:27→22:08)
[2023-01-22 05:31] LABS: HEMATOCRIT 40.2 % (36-48); MEAN CORPUSCULAR HEMOGLOBIN 29.2 pg (27.0-33.0); MEAN CORPUSCULAR HGB CONC 31.8 g/dL (32.0-36.0); MEAN CORPUSCULAR VOLUME 91.6 fL (79-99); RED BLOOD CELL COUNT(AUTO) 4.39 MIL/uL (4.00-5.50); WHITE BLOOD COUNT (AUTO) 10.6 K/uL (4.8-10.8)
[2023-01-22] MEDS: INSULIN HUMULIN R 100 UNIT/ML 3ML SQ SCH ×4 (06:10→20:14)
[2023-01-22 06:19] LABS: ALBUMIN 3.2 g/dL (3.5-5.0); BILIRUBIN,TOTAL 0.3 mg/dL (0.2-1.0); CREATININE 1.2 mg/dL (0.5-1.5); MAGNESIUM 2.1 mg/dL (1.80-2.40); POTASSIUM 4.3 mmol/L (3.5-5.1); TOTAL PROTEIN, SERUM 8.2 g/dL (6.0-8.3)
[2023-01-22] MEDS ORDERED: 0.9%NACL 1000ML 1,000 ML IV ONE (06:54)
[2023-01-22 08:14] LABS: INR < 0.93 (0.85-1.15); PROTHROMBIN TIME 10.7 SEC (9.6-11.6)
[2023-01-22 08:16] LABS: PARTIAL THROMBOPLASTIN TIME 27.7 SEC (26.3-35.5)
[2023-01-22] MEDS: ASCORBIC ACID 500 MG TAB PO SCH (09:00)
[2023-01-22] MEDS: LISINOPRIL 5 MG TABLET PO SCH (09:00)
[2023-01-22] MEDS: CITALOPRAM 20 MG TABLET PO SCH (09:00)
[2023-01-22] MEDS: FLUTICASONE/VILANTEROL 1 EACH BLST.W.DEV IH SCH (09:00)
[2023-01-22] MEDS: OLANZAPINE 5 MG TAB PO SCH (09:00)
[2023-01-22] MEDS: CALCIUM CARB 500MG PO SCH (09:00)
[2023-01-22] MEDS: ENOXAPARIN SODIUM 30 MG/0.3 ML SQ SCH (09:00)
[2023-01-22] MEDS: LINAGLIPTIN 5 MG TABLET PO SCH (09:00)
[2023-01-22] MEDS ORDERED: PROPOFOL 10 MG/ML 20ML VIAL IV ONE (13:13)
[2023-01-22] MEDS ORDERED: LIDOCAINE PF 100MG/5ML (2%) SYRINGE 5ML ONE (13:13)
[2023-01-22] MEDS: MORPHINE 2 MG SYG IVP PRN (17:33)
[2023-01-22] MEDS: ACETAMINOPHEN 325 MG TAB PO PRN (20:07)
[2023-01-22] MEDS: ATORVASTATIN 40 MG TABLET PO SCH (20:08)
[2023-01-22] MEDS: DONEPEZIL HCL 5 MG TAB PO SCH (20:08)
[2023-01-23] VITALS (8 sets, daily range): BP systolic 130–159; BP diastolic 43–60; PULSE 58–69; RESP 16–20; O2SAT 95–98
[2023-01-23] MEDS: BISACODYL 5 MG TABLET.DR PO SCH ×2 (00:02→20:14)
[2023-01-23] MEDS: ZOSYN 3.375GM +NS 50ML IVPB SCH ×3 (06:17→21:31)
[2023-01-23] MEDS: LEVOTHYROXINE 88 MCG TABLET PO SCH (06:19)
[2023-01-23] MEDS: INSULIN HUMULIN R 100 UNIT/ML 3ML SQ SCH ×4 (06:19→20:16)
[2023-01-23] MEDS: ASCORBIC ACID 500 MG TAB PO SCH (09:06)
[2023-01-23] MEDS: CITALOPRAM 20 MG TABLET PO SCH (09:06)
[2023-01-23] MEDS: LISINOPRIL 5 MG TABLET PO SCH (09:06)
[2023-01-23] MEDS: PANTOPRAZOLE 40 MG TAB DR PO SCH (09:07)
[2023-01-23] MEDS: OLANZAPINE 5 MG TAB PO SCH (09:07)
[2023-01-23] MEDS: CALCIUM CARB 500MG PO SCH (09:07)
[2023-01-23] MEDS: LINAGLIPTIN 5 MG TABLET PO SCH (09:07)
[2023-01-23] MEDS: ENOXAPARIN SODIUM 30 MG/0.3 ML SQ SCH (09:07)
[2023-01-23] MEDS: FLUTICASONE/VILANTEROL 1 EACH BLST.W.DEV IH SCH (09:08)
[2023-01-23] MEDS: ATORVASTATIN 40 MG TABLET PO SCH (20:14)
[2023-01-23] MEDS: DONEPEZIL HCL 5 MG TAB PO SCH (20:14)
[2023-01-23] MEDS: MORPHINE 2 MG SYG IVP PRN (20:20)
[2023-01-24] VITALS: BP 139/69; PULSE 62; RESP 18
[2023-01-24] MEDS: BISACODYL 5 MG TABLET.DR PO SCH (00:18)
[2023-01-24 04:00] VITALS: BP 149/63; PULSE 63; RESP 20
[2023-01-24] MEDS: ZOSYN 3.375GM +NS 50ML IVPB SCH (05:52)
[2023-01-24] MEDS: LEVOTHYROXINE 88 MCG TABLET PO SCH (05:52)
[2023-01-24] MEDS: INSULIN HUMULIN R 100 UNIT/ML 3ML SQ SCH ×2 (06:12→11:30)
[2023-01-24 07:25] VITALS: PULSE 67; RESP 18; O2SAT 95
[2023-01-24 08:00] VITALS: BP 167/51; PULSE 58; RESP 17; O2SAT 93
[2023-01-24] MEDS: CALCIUM CARB 500MG PO SCH (09:28)
[2023-01-24] MEDS: OLANZAPINE 5 MG TAB PO SCH (09:28)
[2023-01-24] MEDS: PANTOPRAZOLE 40 MG TAB DR PO SCH (09:28)
[2023-01-24] MEDS: LINAGLIPTIN 5 MG TABLET PO SCH (09:28)
[2023-01-24] MEDS: LISINOPRIL 5 MG TABLET PO SCH (09:28)
[2023-01-24] MEDS: ASCORBIC ACID 500 MG TAB PO SCH (09:29)
[2023-01-24] MEDS: ENOXAPARIN SODIUM 30 MG/0.3 ML SQ SCH (09:29)
[2023-01-24] MEDS: CITALOPRAM 20 MG TABLET PO SCH (09:31)
[2023-01-24] MEDS: FLUTICASONE/VILANTEROL 1 EACH BLST.W.DEV IH SCH (09:37)
[2023-01-24 12:00] VITALS: BP 155/55; PULSE 61; RESP 17
== END 2023-01-24 16:00 | disposition home or self-care (01) | DRG 872 ==
LOC: EDH 06:48 → EDHIP 10:14 → 3BH 14:30
PROVIDERS: ADMIT Internal Medicine Infectious Disease; ATTEND Internal Medicine Infectious Disease
PROC: 0DBN8ZZ Excision of Sigmoid Colon, Via Natural or Artificial Opening Endoscopic (ICD-10-PCS; principal; 2023-01-22)
PROC: 0DB98ZX Excision of Duodenum, Via Natural or Artificial Opening Endoscopic, Diagnostic (ICD-10-PCS; 2023-01-22)
PROC: 0DB68ZX Excision of Stomach, Via Natural or Artificial Opening Endoscopic, Diagnostic (ICD-10-PCS; 2023-01-22)
PROC: 0DB58ZX Excision of Esophagus, Via Natural or Artificial Opening Endoscopic, Diagnostic (ICD-10-PCS; 2023-01-22)
DX: A41.9 Sepsis, unspecified organism (principal); N39.0 Urinary tract infection, site not specified; J96.10 Chronic respiratory failure, unspecified whether with hypoxia or hypercapnia; F03.93 Unspecified dementia, unspecified severity, with mood disturbance; J98.11 Atelectasis; K63.3 Ulcer of intestine; K22.10 Ulcer of esophagus without bleeding; E66.9 Obesity, unspecified; E11.9 Type 2 diabetes mellitus without complications; F31.9 Bipolar disorder, unspecified; J44.9 Chronic obstructive pulmonary disease, unspecified; D64.9 Anemia, unspecified; E03.9 Hypothyroidism, unspecified; E27.8 Other specified disorders of adrenal gland; E78.00 Pure hypercholesterolemia, unspecified; I10 Essential (primary) hypertension; F41.9 Anxiety disorder, unspecified; K21.00 Gastro-esophageal reflux disease with esophagitis, without bleeding; K57.30 Diverticulosis of large intestine without perforation or abscess without bleeding; K59.00 Constipation, unspecified; K63.5 Polyp of colon; K44.9 Diaphragmatic hernia without obstruction or gangrene; K29.00 Acute gastritis without bleeding; K64.0 First degree hemorrhoids; D12.7 Benign neoplasm of rectosigmoid junction; N28.9 Disorder of kidney and ureter, unspecified; Z82.49 Family history of ischemic heart disease and other diseases of the circulatory system; Z83.3 Family history of diabetes mellitus; Z85.3 Personal history of malignant neoplasm of breast; Z90.11 Acquired absence of right breast and nipple; Z88.0 Allergy status to penicillin; Z92.21 Personal history of antineoplastic chemotherapy; Z99.81 Dependence on supplemental oxygen; Z68.35 Body mass index [BMI] 35.0-35.9, adult
CPT/HCPCS: 36415; 43235; 71101; 74018; 74177; 80048; 80053; 81001; 82948; 83690; 83735; 83880; 84484; 85025; 85027; 85610; 85730; 87088; 88305; 88312; 93005; C1769; G0378; J0696; J1650; J1815; J2001; J2270; J2405; J2543; J2704; J3475; J7030; J7120; Q9967; A4215; A4222; A4223; A4620; A7002; J3490

== ENCOUNTER 2023-06-18 03:54 | Emergency (ER) | payer OTHER, MEDICARE ==
[~2023-06-18] VITALS: Ht 149.9 cm; Wt 78.9 kg
[~2023-06-18 03:54] MED LIST changes: +ATOR-2 PO; -ATOR40TA69 PO; +CALC-1125 PO; -CEPH500T PO; +FLUT1BLS IH; -IPRA4AER IH; -PHEN-847 PO
[2023-06-18 04:38] LABS: BASOPHILS # (AUTO) 0.04 K/uL (0.00-0.20); BASOPHILS % (AUTO) 0.4 % (0.0-5.0); EOSINOPHILS # (AUTO) 0.15 K/uL (0.00-0.70); EOSINOPHILS % (AUTO) 1.4 % (0.0-8.0); IMMATURE GRANULOCYTE ABSOLUTE 0.09 K/uL (0-1); LYMPHOCYTES # (AUTO) 1.7 K/uL (1.0-4.8); LYMPHOCYTES % (AUTO) 15.9 % (21.0-51.0); MEAN CORPUSCULAR HEMOGLOBIN 29.5 pg (27.0-33.0); MEAN CORPUSCULAR HGB CONC 34.3 g/dL (32.0-36.0); MEAN CORPUSCULAR VOLUME 85.8 fL (79-99); MONOCYTES # (AUTO) 1.1 K/uL (0.1-1.0); MONOCYTES % (AUTO) 9.9 % (3.0-13.0); NEUTROPHILS # (AUTO) 7.8 K/uL (1.8-7.7); NEUTROPHILS % (AUTO) 71.6 % (40.0-77.0); PLATELET COUNT (AUTO) 258 K/uL (130-400); RED BLOOD CELL COUNT(AUTO) 4.31 MIL/uL (4.00-5.50); RED CELL DISTRIBUTION WIDTH 12.8 % (11.0-15.5); WHITE BLOOD COUNT (AUTO) 10.8 K/uL (4.8-10.8)
[2023-06-18] MEDS: SOLU-MEDROL 125MG VIAL IVP ONE (04:43)
[2023-06-18] MEDS: IPRATROPIUM/ALBUTEROL SULFATE 3 ML SOLUTION IH ONE (04:46)
[2023-06-18 04:47] VITALS: PULSE 87; RESP 20
[2023-06-18 04:51] LABS: RAPID GROUP A STREP negative (NEGATIVE)
[2023-06-18 04:54] LABS: SARS-CoV-2, RNA, NAAT NEGATIVE SARS CoV-2 (NEGATIVE)
[2023-06-18 04:58] LABS: INR <= 0.93 (0.85-1.15)
[2023-06-18 04:59] LABS: INFLUENZA TYPE A Negative For Type A (NEGATIVE); INFLUENZA TYPE B Negative For Type B (NEGATIVE)
[2023-06-18 04:59] LABS: PARTIAL THROMBOPLASTIN TIME 28.9 SEC (26.3-35.5)
[2023-06-18 05:29] LABS: ALBUMIN 3.2 g/dL (3.5-5.0); BILIRUBIN,TOTAL 0.3 mg/dL (0.2-1.0); CREATININE 1.8 mg/dL (0.5-1.0); POTASSIUM 4.4 mmol/L (3.5-5.1); TOTAL PROTEIN, SERUM 7.8 g/dL (6.0-8.3)
[2023-06-18 05:46] LABS: ADD UA MICROSCOPIC YES; APPEARANCE,URINE CLEAR (CLEAR); BILIRUBIN,URINE NEGATIVE (NEGATIVE); COLOR,URINE LIGHT-YELLOW (YELLOW); GLUCOSE, URINE (UA) >=1000 mg/dL (NEGATIVE); KETONES,URINE NEGATIVE (NEGATIVE); LEUKOCYTE ESTERASE ,URINE 75 Leu/uL (NEGATIVE); NITRATE,URINE NEGATIVE (NEGATIVE); PROTEIN,URINE NEGATIVE (NEGATIVE); UROBILINOGEN,URINE 0.2 mg/dL (0.2-1.0)
[2023-06-18 05:47] LABS: BACTERIA,URINE FEW /HPF (None Seen); MUCUS,URINE RARE LPF (None Seen)
[2023-06-18] MEDS: SOLU-MEDROL 125MG VIAL ONE (05:48)
[2023-06-18] MEDS ORDERED: AZIT500T2 PO (06:11)
[2023-06-18] MEDS ORDERED: PRED20TA3 PO (06:11)
[2023-06-18] MEDS ORDERED: GUAI1TBM19 PO (06:11)
[2023-06-18 06:18] VITALS: BP 150/53; PULSE 93; RESP 20; O2SAT 95
== END 2023-06-18 06:20 | disposition home or self-care (01) ==
LOC: EDH 03:54
DX: N39.0 Urinary tract infection, site not specified (principal); J44.1 Chronic obstructive pulmonary disease with (acute) exacerbation; F41.9 Anxiety disorder, unspecified; F03.94 Unspecified dementia, unspecified severity, with anxiety; I10 Essential (primary) hypertension; E11.9 Type 2 diabetes mellitus without complications; E78.00 Pure hypercholesterolemia, unspecified; F03.93 Unspecified dementia, unspecified severity, with mood disturbance; Z79.51 Long term (current) use of inhaled steroids; Z79.84 Long term (current) use of oral hypoglycemic drugs; Z79.890 Hormone replacement therapy; Z79.899 Other long term (current) drug therapy; Z85.3 Personal history of malignant neoplasm of breast; Z88.0 Allergy status to penicillin; Z90.49 Acquired absence of other specified parts of digestive tract; Z99.81 Dependence on supplemental oxygen; Z20.822 Contact with and (suspected) exposure to COVID-19
CPT/HCPCS: 99285; 71045; 87635; 82550; 84484; 80053; 85025; 85610; 85730; 87040 ×2; 87077; 87088; 87186; 87880; 87804 ×2; 83605; 81001; 36415; 96372; 93005; 94640; J2930

== ENCOUNTER 2024-01-14 22:41 | Emergency (ER) | payer OTHER, MEDICARE ==
[~2024-01-14] VITALS: Ht 149.9 cm; Wt 74.4 kg
[~2024-01-14 22:41] MED LIST changes: +AZIT500T2 PO; +GUAI1TBM19 PO; +PRED20TA3 PO; -RAMI2.5C55 PO; +RAMI2.5C57 PO
[2024-01-14 23:44] LABS: BASOPHILS # (AUTO) 0.04 K/uL (0.00-0.20); BASOPHILS % (AUTO) 0.3 % (0.0-5.0); EOSINOPHILS # (AUTO) 0.14 K/uL (0.00-0.70); IMMATURE GRANULOCYTE ABSOLUTE 0.06 K/uL (0-1); LYMPHOCYTES # (AUTO) 2.3 K/uL (1.0-4.8); LYMPHOCYTES % (AUTO) 16.8 % (21.0-51.0); MEAN CORPUSCULAR HEMOGLOBIN 29.3 pg (27.0-33.0); MEAN CORPUSCULAR HGB CONC 33.4 g/dL (32.0-36.0); MEAN CORPUSCULAR VOLUME 87.6 fL (79-99); MONOCYTES # (AUTO) 0.9 K/uL (0.1-1.0); MONOCYTES % (AUTO) 6.6 % (3.0-13.0); NEUTROPHILS % (AUTO) 74.9 % (40.0-77.0); PLATELET COUNT (AUTO) 227 K/uL (130-400); RED BLOOD CELL COUNT(AUTO) 4.34 MIL/uL (4.00-5.50); RED CELL DISTRIBUTION WIDTH 12.4 % (11.0-15.5); WHITE BLOOD COUNT (AUTO) 13.4 K/uL (4.8-10.8)
[2024-01-14 23:56] LABS: CREATININE 1.2 mg/dL (0.5-1.0)
[2024-01-15] MEDS: ondanSETRON 4MG INJ IVP ONE (00:14)
[2024-01-15] MEDS: FAMOTIDINE 20MG VIAL IV ONE (00:14)
[2024-01-15 00:47] LABS: ALBUMIN 3.5 g/dL (3.5-5.0); BILIRUBIN,DIRECT 0.1 mg/dL (0.0-0.3); BILIRUBIN,TOTAL 0.3 mg/dL (0.2-1.0); TOTAL PROTEIN, SERUM 7.8 g/dL (6.0-8.3)
[2024-01-15] MEDS ORDERED: FAMO-136 PO (01:53)
[2024-01-15] MEDS ORDERED: ONDA-243 PO (01:53)
[2024-01-15 02:08] VITALS: BP 136/86; PULSE 80; RESP 2; TEMP 98.9; O2SAT 99
== END 2024-01-15 02:30 | disposition home or self-care (01) ==
LOC: EDH 22:41
DX: K52.9 Noninfective gastroenteritis and colitis, unspecified (principal); E11.9 Type 2 diabetes mellitus without complications; F31.9 Bipolar disorder, unspecified; I10 Essential (primary) hypertension; J44.9 Chronic obstructive pulmonary disease, unspecified; Z79.51 Long term (current) use of inhaled steroids; Z79.84 Long term (current) use of oral hypoglycemic drugs; Z79.890 Hormone replacement therapy; Z79.899 Other long term (current) drug therapy; Z88.0 Allergy status to penicillin; Z98.890 Other specified postprocedural states
CPT/HCPCS: 99285; 80076; 80048; 83690; 85025; 36415; 96374; 96375; J3490; J2405

== ENCOUNTER 2024-04-19 21:52 | Emergency (ER) | payer OTHER, MEDICARE ==
[~2024-04-19] VITALS: Ht 149.9 cm; Wt 78.0 kg
[~2024-04-19 21:52] MED LIST changes: +FAMO-136 PO; +ONDA-243 PO
[2024-04-19 22:27] LABS: ABG BASE EXCESS 0.2 mmol/L (-2.0-3.0); ABG HCO3 26.3 mmol/L (21.0-28.0); ABG OXYGEN SATURATION 97.8 % (94.0-98.0); ABG PCO2 48 mmHg (32-45); ABG PH 7.358 (7.350-7.450); DEVICE COMMENT LR MARIAH RN; PO2, ARTERIAL BG 109.1 mmHg (83.0-108.0); VENT MODE, BG 3LNC (ROOM AIR)
[2024-04-19] MEDS: 0.9%NACL 1000ML 1,000 ML IV ONE (22:30)
[2024-04-19] MEDS: ondanSETRON 4MG INJ IVP ONE (22:30)
--- NOTE | 2024-04-19 22:33 | ERN ---
ED Note History of Present Illness Stated Complaint: C/O WEAKNESS, SHAKY, N X V ONSET 1899 TONIGHT Chief Complaint: Weakness Time Seen by MD: 22:27 Time Seen by Midlevel: 22:27 Dictation: The patient is a 74-year-old female with a history of diabetes, hyperlipidemia, hypertension, COPD O2 dependent who presents to the emergency department with complaints of nausea nonbloody vomiting x2 onset 1899 after eating dinner. Patient denies any constipation, diarrhea, abdominal pain, chest pain or shortness of breath. Denies any fevers. Allergies: Coded Allergies: Penicillins (Unverified Allergy, Mild, RASH, 06/13/17) Home Meds Active Scripts Cephalexin Monohydrate (Keflex) 500 Mg Cap, 500 MG PO BID for 5 Days, #10 CAP Prov:ALESSIA CHIANG 04/20/24 Famotidine (Pepcid) 20 Mg Tablet, 1 TAB PO BID for 5 Days, #10 TAB 0 Refills Prov:VIDYA ROMERO 01/15/24 Ondansetron (Ondansetron Odt) 4 Mg Tab.rapdis, 4 MG PO BID for 7 Days, #14 TAB Prov:VIDYA ROMERO 01/15/24 Guaifenesin/Dextromethorphan (Mucinex Dm ER 1,200-60 mg Tab) 1,200 Mg-60 Mg Tbmp.12hr, 1 EACH PO BID, #20 TAB Prov:ROLAND ONOFRE MD 06/18/23 Azithromycin (Zithromax Tri-Nolberto) 500 Mg Tablet, 500 MG PO DAILY, #3 TAB Prov:ROLAND ONOFRE MD 06/18/23 Prednisone (Prednisone) 20 Mg Tablet, 1 TAB PO AD for 6 Days, #14 TAB 0 Refills TAKE 3 TAB BY MOUTH daily X3 DAYS, THEN TAKE 2 TAB BY MOUTH daily X2 DAYS, THEN TAKE 1 TAB BY MOUTH ONCE A DAY X1 DAY. Prov:ROLAND ONOFRE MD 06/18/23 Reported Medications Calcium Carbonate (Calcium) 600 Mg Calcium (1500 Mg) Tablet, 600 MG PO DAILY, TAB 01/18/23 Atorvastatin Calcium (Atorvastatin Calcium) 80 Mg Tablet, 80 MG PO HS, TAB 01/18/23 Fluticasone/Vilanterol (Breo Ellipta 200-25 Mcg INH) 200 Mcg-25 Mcg/Dose Blst.w.dev, 1 EACH IH DAILY 01/18/23 Ascorbic Acid (Vitamin C) 1,000 Mg Tablet, 1000 MG PO DAILY, TAB 08/26/22 Sitagliptin Phosphate (Januvia) 100 Mg Tablet, 100 MG PO DAILY, TAB 08/26/22 Levothyroxine Sodium (Levothyroxine) 88 Mcg Capsule, 88 MCG PO DAILY, CAP 08/26/22 Olanzapine (Olanzapine) 10 Mg Tablet, 10 MG PO DAILY, TAB 08/26/22 Donepezil HCl (Donepezil HCl) 10 Mg Tablet, 10 MG PO HS, TAB 08/26/22 Ramipril (Ramipril) 2.5 Mg Capsule, 2.5 MG PO DAILY, CAP 08/26/22 Escitalopram Oxalate (Escitalopram Oxalate) 20 Mg Tablet, 20 MG PO DAILY, TAB 08/26/22 Past Medical History Past Medical History: Anxiety, Bipolar, COPD, Dementia, Depression, Diabetes- Type II, Hypertension, Other Additional Past Medical Hx: HX OF OSTEOPOROSIS; HX OF BREAST CA (IN REMISSION) Surgical History: Cholecystectomy Surgical History Other: RT MASTECTOMY Family History: CAD, DM, HTN Social History: Negative, Lives with family History: Not Applicable RN Note Reviewed/Agreed w/PFSH: Yes Review of System Dictation Constitutional: Negative for fever,chills, and weight loss Eyes: Negative for injury, pain,redness, and discharge ENT: Negative for injury,pain or swelling Cardiovascular: Negative for chest pain, palpitations, and edema Respiratory: Negative for shortness of breath, cough, and wheezing, Abdomen/GI: Negative for diarrhea, and constipation positive for abdominal pain, nausea, vomiting, Back: Negative for injury and pain : Negative for injury, bleeding and discharge MS/Extremity: Negative for injury and deformity Skin: Negative for rash, and discoloration Neuro: Negative for headache, weakness, numbness, tingling, and seizure Psych: Negative for suicide ideation, homicidal ideation, and hallucinations Initial Vital Sign VS Vital Signs Date Time Temp Pulse Resp B/P (MAP) Pulse Ox O2 Delivery O2 Flow Rate FiO2 04/19/24 21:55 99.0 64 20 99 Room Air 04/19/24 22:14 160/50 3 32 Physical Exam Dictation Vital Signs reviewed General Appearance: Alert, oriented x 3, no acute distress, well developed, nourished. Head and Face: non-traumatic. Eyes: PERRL, pink conjunctivas, eyelid no trauma, anterior chamber with arcus senilis. Ears: Pinnas intact and no signs of trauma or erythema ear canals clear and no discharge TM no erythema Nose: No discharge, no bleeding. Oropharynx: Mouth normal, tongue pink. pharynx clear,no erythema, tonsils no exudates, no abscesses noted, mucous membrane moist Neck: Supple, non-tender, no thyromegaly, no masses, no JVD, no bruits Breast:Deferred Chest:No tenderness, no crepitus, no paradoxical movement, no retractions Lungs:Clear, well-ventilated, symmetric, no rales, no wheezing, no rhonchi, no stridor, good breath sounds bilaterally Heart: Regular rate, regular rhythm, no murmur, no gallops Vascular: no peripheral edema, Abdomen: Soft, positive bowel sounds, nondistended, rounded, no guarding, nontender, no rebound, no masses no hepatomegaly, no splenomegaly, no Crum's sign, no hernias. Rectal: Deferred Genital: Deferred Neurological: Normal speech, motor function intact, sensory function intact Musculoskeletal: Neck nontender, full range of motion, back nontender, full range of motion, Extremities: nontender, full range of motion Skin: Color pink, dry, no turgor, no rash, no lacerations, no abrasions, no contusions. Lymphatic: Deferred Results (Laboratory/Radiology) Laboratory/Radiology Laboratory Tests Test 04/19/24 22:04 04/19/24 22:21 04/19/24 22:25 04/19/24 22:33 Whole Blood Glucose 375 MG/DL (70-110) H White Blood Count 13.2 K/uL (4.8-10.8) H Red Blood Count 4.33 MIL/uL (4.00-5.50) Hemoglobin 12.6 g/dL (12.0-16.0) Hematocrit 38.1 % (36-48) Mean Corpuscular Volume 88.0 fL (79-99) Mean Corpuscular Hemoglobin 29.1 pg (27.0-33.0) Mean Corpuscular Hemoglobin Concent 33.1 g/dL (32.0-36.0) Red Cell Distribution Width 12.4 % (11.0-15.5) Platelet Count 218 K/uL (130-400) Mean Platelet Volume 10.4 fL (7.5-10.5) Immature Granulocyte % (Auto) 0.8 % (0-1) Neutrophils (%) (Auto) 80.2 % (40.0-77.0) H Lymphocytes (%) (Auto) 11.4 % (21.0-51.0) L Monocytes (%) (Auto) 6.7 % (3.0-13.0) Eosinophils (%) (Auto) 0.5 % (0.0-8.0) Basophils (%) (Auto) 0.4 % (0.0-5.0) Neutrophils # (Auto) 10.6 K/uL (1.8-7.7) H Lymphocytes # (Auto) 1.5 K/uL (1.0-4.8) Monocytes # (Auto) 0.9 K/uL (0.1-1.0) Eosinophils # (Auto) 0.07 K/uL (0.00-0.70) Basophils # (Auto) 0.05 K/uL (0.00-0.20) Absolute Immature Granulocyte (auto 0.10 K/uL (0-1) Nucleated Red Blood Cells 0.0 % (0.0-0.19) Sodium Level 131 mmol/L (136-145) L Potassium Level 4.3 mmol/L (3.5-5.1) Chloride Level 92 mmol/L (101-111) L Carbon Dioxide Level 33 mmol/L (21-32) H Blood Urea Nitrogen 19 mg/dL (7-18) H Creatinine 0.9 mg/dL (0.5-1.0) Glomerular Filtration Rate Calc 68 mL/min (>90) Random Glucose 358 mg/dL (70-105) H Lactic Acid Level 2.1 mmol/L (0.8-2.5) Total Calcium 8.8 mg/dL (8.5-10.1) Magnesium Level 1.80 mg/dL (1.80-2.40) Total Bilirubin 0.3 mg/dL (0.2-1.0) Direct Bilirubin 0.1 mg/dL (0.0-0.3) Aspartate Amino Transf (AST/SGOT) 18 U/L (10-37) Alanine Aminotransferase (ALT/SGPT) 22 U/L (12-78) Alkaline Phosphatase 78 U/L (50-136) Total Creatine Kinase 96 U/L (21-232) Troponin I High Sensitivity 24.7 ng/L (4-50) B-Type Natriuretic Peptide 12 pg/mL (0-100) Total Protein 7.5 g/dL (6.0-8.3) Albumin 3.6 g/dL (3.5-5.0) Lipase 70 U/L (16-77) Blood Gas Specimen Type Arterial Arterial Blood pH 7.358 (7.350-7.450) Arterial Blood Partial Pressure CO2 48 mmHg (32-45) H Arterial Blood Partial Pressure O2 109.1 mmHg (83.0-108.0) H Arterial Blood HCO3 26.3 mmol/L (21.0-28.0) Arterial Blood Oxygen Saturation 97.8 % (94.0-98.0) Arterial Blood Base Excess 0.2 mmol/L (-2.0-3.0) Blood Gas Temperature 37.0 CELSIUS (35.5-37.0) Blood Gas Flow-by 3.00 L/min (0.00-15.00) Blood Gas Vent Mode 3LNC (ROOM AIR) FiO2 32.0 % Blood Gas Specimen Comment LR [facility] RN Influenza Type A Antigen Negative For Type A Influenza Type B Antigen Negative For Type B SARS-CoV-2 Antigen (Rapid) PRESUMPTIVE NEGATIVE Test 04/20/24 00:09 Urine Color COLORLESS (YELLOW) Urine Appearance CLEAR (CLEAR) Urine pH 5.0 (5.0-8.0) Urine Specific [place] 1.023 (1.001-1.031) Urine Protein 10 mg/dL (NEGATIVE) H Urine Glucose (UA) >=1000 mg/dL (NEGATIVE) H Urine Ketones 5 mg/dL (NEGATIVE) H Urine Occult Blood NEGATIVE (NEGATIVE) Urine Nitrate NEGATIVE (NEGATIVE) Urine Bilirubin NEGATIVE mg/dL (NEGATIVE) Urine Urobilinogen 0.2 mg/dL (0.2-1.0) Urine Leukocyte Esterase 75 Kathy/uL (NEGATIVE) H Urine RBC 0-1 /HPF (0-1) Urine WBC 11-25 /HPF (0-1) H Urine Squamous Epithelial Cells RARE /HPF (0-2) Urine Bacteria FEW /HPF (None Seen) REASON: vomiting ORDERING PHYSICIAN: GOGO PELLETIER DO PROCEDURE: ABD PEL W - CT ABDOMEN/PELVIS W/CONTRAST CT ABDOMEN/PELVIS W/CONTRAST HISTORY: Vomiting COMPARISON: None TECHNIQUE: Multiple sequential axial images of the abdomen and pelvis were obtained from the dome of the diaphragm through symphysis pubis. Patient was given 100 cc of Omnipaque through intravenous route. Oral contrast was not given. FINDINGS: No pleural effusion is seen bilaterally. Left lower lung pulmonary infiltrates are seen. A small hiatal hernia is seen. Degenerative changes of the thoracolumbar spine are present. The heart is not enlarged. Liver measured 13 cm. There are bilateral renal cortical scarring. The liver, spleen, adrenal glands and pancreas are unremarkable. There is no evidence of hydronephrosis bilaterally. No evidence of renal stone is seen. Fecal material is seen in the colon. There are normal size retroperitoneal and mesenteric lymph nodes. No ascites is seen. Atherosclerotic changes are present. No CT evidence of acute appendicitis is seen. There is diverticulosis. Pelvic sidewalls are symmetric bilaterally. Bladder is well distended without wall thickening. IMPRESSION: 1. Left lower lung infiltrates. No ascites. There is diverticulosis. Bilateral renal cortical scarring. Small hiatal hernia. CT was performed with one or more following dose reduction techniques: automated exposure control, adjustment of the mA and kv according to patient's size, or use of a iterative reconstruction technique. REASON: weakness ORDERING PHYSICIAN: GOGO PELLETIER DO PROCEDURE: CXR1VW - CHEST 1VW CHEST 1VW HISTORY: Weakness COMPARISON: 06/18/2023 FINDINGS: A frontal projection of the chest was obtained. Mild bilateral pulmonary infiltrates are seen may be related to mild pulmonary vascular congestion with possible superimposed pneumonitis. The heart is borderline enlarged. Degenerative changes are seen. No evidence of aortic calcification is seen. IMPRESSION: 1. Mild bilateral pulmonary infiltrates are seen may be related to mild pulmonary vascular congestion with possible superimposed pneumonitis. Labs Reviewed?: Yes EKG: (+) rhythm EKG Comment: Date: Time: 2233 Ventricular rate:59 CA interval:178 QRS duration:114 QT/QTc:466 EKG interpretation: Sinus rhythm Reviewed by ED Attending no STEMI ED Course ED Course Orders Procedure Category Date Status Time Arterial Blood Gas RT 04/19/24 Transmitted 22:04 Cardiac Panel LAB 04/19/24 Complete 22:04 Cbc With Differential LAB 04/19/24 Complete 22:04 Basic Metabolic Panel LAB 04/19/24 Complete 22:04 Magnesium LAB 04/19/24 Complete 22:04 Urinalysis Profile LAB 04/19/24 Complete 22:04 0.9%Nacl 1000ml (Ns PHA 04/19/24 Complete 1000ml) 22:30 Lipase LAB 04/19/24 Complete 22:04 Hepatic Function Panel LAB 04/19/24 Complete 22:04 B-Type Natriuretic LAB 04/19/24 Complete Peptide 22:04 Covid19 (Sars Antigen LAB 04/19/24 Complete Rapid) 22:04 Influenza Type A & B, LAB 04/19/24 Complete Rapid 22:04 Ondansetron 4mg Inj PHA 04/19/24 Complete (Zofran 4mg Inj) 22:30 12 Lead Ekg Tracing- EKG 04/19/24 Logged Technical 22:04 Chest 1vw RAD 04/19/24 Resulted 22:04 Lactic Acid LAB 04/19/24 Complete 22:04 Blood Cult ZACKERY 04/19/24 In Process 22:04 Ct Abdomen/Pelvis CT 04/19/24 Resulted W/Contrast 22:08 Arterial Blood Gas LAB 04/19/24 Complete 22:25 Iohexol (Omnipaque) PHA 04/19/24 Complete 22:58 Culture Urine ZACKERY 04/20/24 In Process 00:27 Current Medications Medications (Trade) Dose Ordered Sig/Ge Route PRN Reason Start Time Stop Time Status Last Admin Dose Admin Iohexol (Omnipaque) 35,000 mg STK-MED ONCE IV 04/19/24 22:58 04/19/24 22:58 DC Ondansetron HCl (zoFRAN 4MG INJ) 4 mg ONCE ONCE IVP 04/19/24 22:30 04/19/24 22:31 DC 04/19/24 22:30 Sodium Chloride 1,000 ml @ 0 mls/hr ONCE ONCE IV 04/19/24 22:30 04/19/24 22:31 DC 04/19/24 22:30 Vital Signs Date Time Temp Pulse Resp B/P (MAP) Pulse Ox O2 Delivery O2 Flow Rate FiO2 04/20/24 00:47 97.3 84 20 145/66 100 Nasal Cannula* 3 32 04/19/24 22:14 97.2 88 20 160/50 100 Nasal Cannula* 3 32 04/19/24 21:55 99.0 64 20 99 Room Air Medical Decision Making MDM The patient is a 74-year-old female with a history of diabetes, hyperlipidemia, hypertension, COPD O2 dependent who presents to the emergency department with complaints of nausea nonbloody vomiting x2 onset 1900 after eating dinner. Patient denies any constipation, diarrhea, abdominal pain, chest pain or shortness of breath. Denies any fevers. CBC showed mild leukocytosis unchanged from previous visits, no anemia, chemistry showed mild hyponatremia, hypochloremia, elevated blood glucose without DKA, patient received a L of NS in the ER., negative BNP, negative troponin, urinalysis positive for leukocyte esterase. CT abdomen showed a small hiatal hernia. Patient continues without any pain. Reports feeling better de nies any more nausea. Spoke to patient about the option of admitting or being discharged at this time patient would like to be discharged and follow up with primary doctor. Differential diagnosis: Gastroenteritis, bowel obstruction, electrolyte imbalance, dehydration Need for hospitalization: Patient does not meet criteria for hospitalization. There are no social concerns with this patient. DX & DISP Disposition: Discharge Departure Impression: Primary Impression: Nausea and vomiting Additional Impressions: Hiatal hernia, UTI (urinary tract infection), Mild dehydration, Uncontrolled diabetes mellitus with hyperglycemia Condition: Stable Scripts Cephalexin Monohydrate (Keflex) 500 Mg Cap 500 MG PO BID for 5 Days, #10 CAP Prov: ALESSIA CHIANG MANDARIN CHINESE TEACHER 04/20/24 Additional Instructions: Please follow up with primary doctor in 1-2 days. Please return to ER if symptoms worsen FOLLOW-UP WITH PRIMARY CARE PROVIDER IN 1 TO 2 DAYS. TAKE MEDICATIONS DIRECTED HERE IN THE EMERGENCY ROOM. OKAY TO CONTINUE HOME MEDICATIONS UNLESS OTHERWISE DISCUSSED DURING YOUR VISIT IN THE EMERGENCY ROOM TODAY. RETURN TO YOUR NEAREST EMERGENCY ROOM IF SYMPTOMS WORSEN OR IF THERE IS NO IMPROVEMENT. CALL 911 IF YOU NEED IMMEDIATE ASSISTANCE. TAKE TYLENOL OR MOTRIN [id number] NEEDED AND IF NO CONTRAINDICATIONS ARE PRESENT. INCREASE ORAL HYDRATION. A WOUND CULTURE OR URINE CULTURE WAS ORDERED HERE IN THE EMERGENCY ROOM DEPARTMENT PLEASE FOLLOW-UP WITH PRIMARY CARE PROVIDER AND ADVISE THEM TO GET REPEAT PORTS FROM OUR FACILITY. IF YOU HAD ANY PHIL WRAP/SPLINTS THAT WERE APPLIED HERE, PLEASE DO NOT REMOVE THEM UNTIL YOU SEE YOUR PRIMARY CARE OR SPECIALTY. Referrals: ARTURO PEREZ MD (PCP) Time of Disposition: 00:39 I have reviewed the case, and I agree with, Diagnosis and Plan I performed a substantive portion of the visit. I have reviewed and personally made and approve the management plan that is documented in the notes by myself with PAULO/resident. I acknowledged full responsibility for the patient's management plan. 74-year-old female with vomiting after eating food. She was hyperglycemic, also has a mild UTI. Otherwise the labs imaging is unremarkable. Did offer the patient admission, but after treatment here in the ER she reports that she feels better and wants to go home. ALESSIA CIHANG Apr 19, 2024 22:33 GOGO PELLETIER DO Apr 20, 2024 03:37
[2024-04-19 22:35] LABS: BASOPHILS # (AUTO) 0.05 K/uL (0.00-0.20); BASOPHILS % (AUTO) 0.4 % (0.0-5.0); EOSINOPHILS # (AUTO) 0.07 K/uL (0.00-0.70); EOSINOPHILS % (AUTO) 0.5 % (0.0-8.0); HEMATOCRIT 38.1 % (36-48); LYMPHOCYTES # (AUTO) 1.5 K/uL (1.0-4.8); LYMPHOCYTES % (AUTO) 11.4 % (21.0-51.0); MEAN CORPUSCULAR HEMOGLOBIN 29.1 pg (27.0-33.0); MEAN CORPUSCULAR HGB CONC 33.1 g/dL (32.0-36.0); MONOCYTES # (AUTO) 0.9 K/uL (0.1-1.0); MONOCYTES % (AUTO) 6.7 % (3.0-13.0); NEUTROPHILS # (AUTO) 10.6 K/uL (1.8-7.7); NEUTROPHILS % (AUTO) 80.2 % (40.0-77.0); PLATELET COUNT (AUTO) 218 K/uL (130-400); RED BLOOD CELL COUNT(AUTO) 4.33 MIL/uL (4.00-5.50); RED CELL DISTRIBUTION WIDTH 12.4 % (11.0-15.5); WHITE BLOOD COUNT (AUTO) 13.2 K/uL (4.8-10.8)
[2024-04-19 22:46] LABS: CREATININE 0.9 mg/dL (0.5-1.0); POTASSIUM 4.3 mmol/L (3.5-5.1)
[2024-04-19 22:52] LABS: ALBUMIN 3.6 g/dL (3.5-5.0); BILIRUBIN,DIRECT 0.1 mg/dL (0.0-0.3); BILIRUBIN,TOTAL 0.3 mg/dL (0.2-1.0); MAGNESIUM 1.8 mg/dL (1.80-2.40); TOTAL PROTEIN, SERUM 7.5 g/dL (6.0-8.3)
[2024-04-19 22:57] LABS: B-TYPE NATRIURETIC PEPTIDE 12 pg/mL (0-100)
[2024-04-19] MEDS ORDERED: IOHEXOL 350 MG/ML 100ML INFUS..BTL IV ONE (22:58)
[2024-04-19 23:08] LABS: COVID19 (SARS ANTIGEN RAPID) PRESUMPTIVE NEGATIVE (NEGATIVE); INFLUENZA TYPE A Negative For Type A (NEGATIVE); INFLUENZA TYPE B Negative For Type B (NEGATIVE)
--- NOTE | 2024-04-19 23:30 | HMCIMG ---
CHEST 1VW HISTORY: Weakness COMPARISON: 06/18/2023 FINDINGS: A frontal projection of the chest was obtained. Mild bilateral pulmonary infiltrates are seen may be related to mild pulmonary vascular congestion with possible superimposed pneumonitis. The heart is borderline enlarged. Degenerative changes are seen. No evidence of aortic calcification is seen. IMPRESSION: 1. Mild bilateral pulmonary infiltrates are seen may be related to mild pulmonary vascular congestion with possible superimposed pneumonitis.
--- NOTE | 2024-04-20 00:01 | HMCIMG ---
CT ABDOMEN/PELVIS W/CONTRAST HISTORY: Vomiting COMPARISON: None TECHNIQUE: Multiple sequential axial images of the abdomen and pelvis were obtained from the dome of the diaphragm through symphysis pubis. Patient was given 100 cc of Omnipaque through intravenous route. Oral contrast was not given. FINDINGS: No pleural effusion is seen bilaterally. Left lower lung pulmonary infiltrates are seen. A small hiatal hernia is seen. Degenerative changes of the thoracolumbar spine are present. The heart is not enlarged. Liver measured 13 cm. There are bilateral renal cortical scarring. The liver, spleen, adrenal glands and pancreas are unremarkable. There is no evidence of hydronephrosis bilaterally. No evidence of renal stone is seen. Fecal material is seen in the colon. There are normal size retroperitoneal and mesenteric lymph nodes. No ascites is seen. Atherosclerotic changes are present. No CT evidence of acute appendicitis is seen. There is diverticulosis. Pelvic sidewalls are symmetric bilaterally. Bladder is well distended without wall thickening. IMPRESSION: 1. Left lower lung infiltrates. No ascites. There is diverticulosis. Bilateral renal cortical scarring. Small hiatal hernia. CT was performed with one or more following dose reduction techniques: automated exposure control, adjustment of the mA and kv according to patient's size, or use of a iterative reconstruction technique.
[2024-04-20 00:22] LABS: APPEARANCE,URINE CLEAR (CLEAR); BILIRUBIN,URINE NEGATIVE (NEGATIVE); COLOR,URINE COLORLESS (YELLOW); GLUCOSE, URINE (UA) >=1000 mg/dL (NEGATIVE); KETONES,URINE 5 mg/dL (NEGATIVE); LEUKOCYTE ESTERASE ,URINE 75 Leu/uL (NEGATIVE); NITRATE,URINE NEGATIVE (NEGATIVE); OCCULT BLOOD,URINE NEGATIVE (NEGATIVE); PROTEIN,URINE 10 mg/dL (NEGATIVE); UROBILINOGEN,URINE 0.2 mg/dL (0.2-1.0)
[2024-04-20 00:27] LABS: ADD UA MICROSCOPIC YES
[2024-04-20 00:30] LABS: BACTERIA,URINE FEW /HPF (None Seen); MUCUS,URINE RARE LPF (None Seen); RBC,URINE 0-1 /HPF (0-1); SQUAMOUS EPITHELIAL CELL,UR RARE /HPF (0-2)
[2024-04-20] MEDS ORDERED: CEPH500B PO (00:43)
[2024-04-20 00:47] VITALS: BP 145/66; PULSE 84; RESP 20; TEMP 97.4; O2SAT 100
--- NOTE | 2024-04-20 05:55 | EKG ---
[facility] Test Date: 2024-04-19 Test Time: 22:34:35 Pat Name: GAURAV KOCH Department: [facility] Room: Gender: F Supervisor Telephone Clerks: [id number] : [phone] Requested By: GOGO PELLETIER Order Number: [id number] Reading MD: Luis Minaya Measurements Intervals [place] Rate: 59 P: 56 MO: 178 QRS: -29 QRSD: 114 T: 61 QT: 472 QTc: 466 Interpretive Statements Sinus rhythm Atrial premature complex Compared to ECG 06/18/2023 05:53:48 Atrial premature complex(es) now present Electronically Signed On 04-20-2024 17:08:42 MARKETING ANALYST by Luis Minaya Please click the below link to view image of tracing.
== END 2024-04-20 00:49 | disposition home or self-care (01) ==
LOC: EDH 21:52
DX: R11.2 Nausea with vomiting, unspecified (principal); K44.9 Diaphragmatic hernia without obstruction or gangrene; N39.0 Urinary tract infection, site not specified; E86.0 Dehydration; E11.65 Type 2 diabetes mellitus with hyperglycemia; F03.94 Unspecified dementia, unspecified severity, with anxiety; I10 Essential (primary) hypertension; F31.9 Bipolar disorder, unspecified; J44.9 Chronic obstructive pulmonary disease, unspecified; Z79.51 Long term (current) use of inhaled steroids; Z79.84 Long term (current) use of oral hypoglycemic drugs; Z79.890 Hormone replacement therapy; Z79.899 Other long term (current) drug therapy; Z85.3 Personal history of malignant neoplasm of breast; Z90.49 Acquired absence of other specified parts of digestive tract; Z88.0 Allergy status to penicillin; Z20.822 Contact with and (suspected) exposure to COVID-19
CPT/HCPCS: 99285; 74177; 96374; 71045; 87426; 82550; 80076; 83735; 84484; 80048; 82803; 83880; 83690; 85025; 87040 ×2; 87086 ×2; 87186; 87804 ×2; 82948; 83605; 81001; 36415; 93005; 36600; J7030; J2405; Q9967

== ENCOUNTER 2024-04-30 00:56 | Emergency (ER) | payer OTHER, MEDICARE ==
[~2024-04-30] VITALS: Ht 149.9 cm; Wt 78.9 kg
[~2024-04-30 00:56] MED LIST changes: +CEPH500B PO
[2024-04-30] MEDS: HYDROcodone/APAP 5/325 1 TAB TABLET PO ONE (03:12)
[2024-04-30 03:39] VITALS: BP 135/38; PULSE 72; RESP 16; TEMP 98.1; O2SAT 99
--- NOTE | 2024-04-30 03:39 | ERN ---
General Chief Complaint: Mechanical Fall Stated Complaint: C/O RT RIB PAIN WITH RT KNEE PAIN AFTER FALL Time Seen by MD: 01:02 Time Seen by Midlevel: 01:02 Source: patient History of Present Illness Initial Comments This is a 74-year-old female presenting to the emergency department following a mechanical ground level fall. The patient states she was trying to get up when she accidentally lost balance and fell onto her right side. On arrival she reports right knee pain and right-sided rib pain. She was chronically on home oxygen. Initially she denied hitting her head or losing consciousness however later during my evaluation the patient's son arrived and states the fall was unwitnessed. The patient later admitted that she may or may not have hit her head. She currently denies any vision changes, headache, nausea, vomiting, or any other symptoms at this time. Allergies: Coded Allergies: Penicillins (Unverified Allergy, Mild, RASH, 06/13/17) Home Meds Active Scripts Cephalexin Monohydrate (Keflex) 500 Mg Cap, 500 MG PO BID for 5 Days, #10 CAP Prov:ALESSIA CHIANG 04/20/24 Famotidine (Pepcid) 20 Mg Tablet, 1 TAB PO BID for 5 Days, #10 TAB 0 Refills Prov:VIDYA ROMERO 01/15/24 Ondansetron (Ondansetron Odt) 4 Mg Tab.rapdis, 4 MG PO BID for 7 Days, #14 TAB Prov:VIDYA ROMERO 01/15/24 Guaifenesin/Dextromethorphan (Mucinex Dm ER 1,200-60 mg Tab) 1,200 Mg-60 Mg Tb mp.12hr, 1 EACH PO BID, #20 TAB Prov:ROLAND ONOFRE MD 06/18/23 Azithromycin (Zithromax Tri-Nolberto) 500 Mg Tablet, 500 MG PO DAILY, #3 TAB Prov:ROLAND ONOFRE MD 06/18/23 Prednisone (Prednisone) 20 Mg Tablet, 1 TAB PO AD for 6 Days, #14 TAB 0 Refills TAKE 3 TAB BY MOUTH daily X3 DAYS, THEN TAKE 2 TAB BY MOUTH daily X2 DAYS, THEN TAKE 1 TAB BY MOUTH ONCE A DAY X1 DAY. Prov:ROLAND ONOFRE MD 06/18/23 Reported Medications Calcium Carbonate (Calcium) 600 Mg Calcium (1500 Mg) Tablet, 600 MG PO DAILY, TAB 01/18/23 Atorvastatin Calcium (Atorvastatin Calcium) 80 Mg Tablet, 80 MG PO HS, TAB 01/18/23 Fluticasone/Vilanterol (Breo Ellipta 200-25 Mcg INH) 200 Mcg-25 Mcg/Dose Blst.w.dev, 1 EACH IH DAILY 01/18/23 Ascorbic Acid (Vitamin C) 1,000 Mg Tablet, 1000 MG PO DAILY, TAB 08/26/22 Sitagliptin Phosphate (Januvia) 100 Mg Tablet, 100 MG PO DAILY, TAB 08/26/22 Levothyroxine Sodium (Levothyroxine) 88 Mcg Capsule, 88 MCG PO DAILY, CAP 08/26/22 Olanzapine (Olanzapine) 10 Mg Tablet, 10 MG PO DAILY, TAB 08/26/22 Donepezil HCl (Donepezil HCl) 10 Mg Tablet, 10 MG PO HS, TAB 08/26/22 Ramipril (Ramipril) 2.5 Mg Capsule, 2.5 MG PO DAILY, CAP 08/26/22 Escitalopram Oxalate (Escitalopram Oxalate) 20 Mg Tablet, 20 MG PO DAILY, TAB 08/26/22 Past Medical History Past Medical History: Anxiety, COPD, Dementia, Depression, Diabetes-Type II, High Cholesterol, Hypertension, Other Medical History Other: HX OF OSTEROPOROSIS Past Surgical History: Unknown Surgical History Other: RT MASTECTOMY Family History Family History: CAD, DM, HTN Social History Social History: Negative, Lives with family Female( History) History: Not Applicable ROS Dictation CONSTITUTIONAL: Negative except for HPI HEAD/FACE: Negative except for HPI EENT: Negative except for HPI RESPIRATORY: Negative except for HPI GASTROINTESTINAL/ABDOMINAL: Negative except for HPI GENITOURINARY: Negative except for HPI MUSCULOSKELETAL: Negative except for HPI INTEGUMENTARY: Negative except for HPI NEUROLOGICAL/PSYCH: Negative except for HPI HEMATOLOGIC/LYMPHATIC: Negative except for HPI All Systems Negative, Except as noted above. 13 point review of systems assessed and all negative except for above. Physical Exam Physical Exam Dictation Vital Signs reviewed General Appearance: Alert, oriented x 3, no acute distress, well developed, nourished. Head and Face: non-traumatic. Eyes: PERRL, pink conjunctivas, eyelid no trauma, anterior chamber with arcus senilis. Ears: Pinnas intact and no signs of trauma or erythema ear canals clear and no discharge TM no erythema Nose: No discharge, no bleeding. Oropharynx: Mouth normal, tongue pink, pharynx clear,no erythema, tonsils no exudates, no abscesses noted, mucous membrane moist Neck: Supple, non-tender, no thyromegaly, no masses, no JVD, no bruits Breast:Deferred Chest:No tenderness, no crepitus, no paradoxical movement, no retractions Lungs:Clear, well-ventilated, symmetric, no rales, no wheezing, no rhonchi, no stridor, good breath sounds bilaterally Heart: Regular rate, regular rhythm, no murmur, no gallops Vascular: no peripheral edema, Abdomen: Soft, positive bowel sounds, nondistended, no guarding, nontender, no rebound, no masses no hepatomegaly, no splenomegaly, no Crum's sign, no hernias. Rectal: Deferred Genital: Deferred Neurological: Normal speech, motor function intact, sensory function intact Musculoskeletal: Neck nontender, full range of motion, back nontender, full range of motion, Extremities: nontender, full range of motion Skin: Color pink, dry, no turgor, no rash, no lacerations, no abrasions, no contusions. Lymphatic: Deferred MDM MDM: This is a 74-year-old female presenting to the emergency department following a mechanical ground level fall. The patient states she was trying to get up when she accidentally lost balance and fell onto her right side. On arrival she reports right knee pain and right-sided rib pain. She was chronically on home oxygen. Initially she denied hitting her head or losing consciousness however later during my evaluation the patient's son arrived and states the fall was unwitnessed. The patient later admitted that she may or may not have hit her head. She currently denies any vision changes, headache, nausea, vomiting, or any other symptoms at this time. On physical examination the patient is in no acute distress. She was some right-sided chest wall tenderness that is reproducible with movement and palpation. She also has some mild tenderness overlying the right knee however she was full range motion is able to bear weight and ambulate without assistance and with a normal gait. X- ray of the right knee and rib series was obtained which does not show any obv ious fracture or dislocation. A CT scan of the head was obtained given that the fall was unwitnessed. CT scan of the head reveals no acute intracranial hemorrhage. There was no midline shift or mass effect. Patient was observed in the ER for over 2 hours and has remained stable and asymptomatic. The patient will be discharged home with strict return precautions. Sinus at bedside and will be taking the patient home. Differential diagnosis: Fracture, contusion, closed head injury There are no social concerns with this patient. Prescription drug management Prescriptions will include: None Medical management and examination interpretation discussions were had by me with other qualified healthcare professionals as indicated for the patient's care. ED Course Orders Procedure Category Date Status Time Ribs Uni Rt W Pa RAD 04/30/24 Taken Chest 3+ Vws 01:01 Knee 3vws Rt RAD 04/30/24 Taken 01:01 Ct Head/Brain W/O CT 04/30/24 Taken Contrast 02:01 Hydrocodone/Apap PHA 04/30/24 Complete 5/325 ([place] 5/325mg) 03:00 Current Medications Medications (Trade) Dose Ordered Sig/Ge Route PRN Reason Start Time Stop Time Status Last Admin Dose Admin Acetaminophen/ Hydrocodone Bitart (NORco 5/325MG) 1 tab ONCE ONCE PO 04/30/24 03:00 04/30/24 03:01 DC 04/30/24 03:12 Vital Signs Date Time Temp Pulse Resp B/P (MAP) Pulse Ox O2 Delivery O2 Flow Rate FiO2 04/30/24 03:39 98.1 72 16 135/38 99 Room Air* 0 21 04/30/24 02:30 98.2 79 18 145/46 97 Room Air* 0 21 04/30/24 01:15 98.1 82 15 149/44 95 Room Air* 0 04/30/24 00:58 98.8 72 20 146/47 98 Room Air DX & DISP Disposition: Discharge Departure Impression: Primary Impression: Contusion of left chest wall Additional Impressions: Contusion of right knee, Fall Condition: Stable Additional Instructions: Your CT scan of the head does not show any acute intracranial abnormality. Your rib and right knee x-ray do not show any acute fracture. You may take Tylenol and Motrin for pain. Follow up with the primary care doctor in 2-3 days for repeat evaluation. Return to the ER for any new or worsening symptoms Referrals: ARTURO PEREZ MD (PCP) Time of Disposition: 03:39 I have reviewed the case, and I agree with, Diagnosis and Plan VIDYA ROMERO Apr 30, 2024 03:39
--- NOTE | 2024-04-30 08:26 | HMCIMG ---
Exam: NONCONTRAST CT BRAIN REASON: fall. COMPARISON: 03/28/2016 TECHNIQUE: Images are obtained from vertex to the skull base. The exam was performed without IV contrast. FINDINGS: There are generous ventricles and sulci. There is decreased attenuation in the deep central white matter. These findings are consistent with atrophy. There are no acute appearing focal parenchymal lesions. There is no evidence of mass, intracranial hemorrhage or acute stroke. Posterior fossa and brainstem structures appear unremarkable. There are no abnormal fluid collections. Extra cranial soft tissues appear unremarkable as well. IMPRESSION: 1. Atrophy, mild, no acute finding. CT was performed with one or more following dose reduction techniques: automated exposure control, adjustment of the mA and kv according to patient's size, or use of a iterative reconstruction technique.
--- NOTE | 2024-04-30 08:31 | HMCIMG ---
RIBS UNI RT W PA CHEST 3+ VWS REASON: fall TECHNIQUE: 5 views were obtained. FINDINGS: PA chest x-ray shows clear lungs. There is mild cardiomegaly without pulmonary vascular congestion. Mediastinum and bony thorax appear unremarkable. Surgical clips are again noted in the right axilla. Right rib series shows normal findings. There are no visible fractures. Soft tissues appear unremarkable. IMPRESSION: 1. Mild cardiomegaly without pulmonary vascular congestion 2. Otherwise unremarkable PA chest x-ray with right rib series.
--- NOTE | 2024-04-30 08:31 | HMCIMG ---
KNEE 3VWS RT REASON: fall TECHNIQUE: 3 views were obtained. FINDINGS: There is moderate lateral joint space are consistent with osteoarthritis. There are small osteophytes along the lateral joint margin. Medial and patellofemoral joint spaces appear preserved. There are no fractures. There is no joint effusion. IMPRESSION: 1. Mild to moderate osteoarthritis lateral joint compartment. 2. No acute finding.
== END 2024-04-30 04:01 | disposition home or self-care (01) ==
LOC: EDH 00:56
DX: S20.212A Contusion of left front wall of thorax, initial encounter (principal); S80.01XA Contusion of right knee, initial encounter; E11.9 Type 2 diabetes mellitus without complications; E78.00 Pure hypercholesterolemia, unspecified; F41.9 Anxiety disorder, unspecified; F03.93 Unspecified dementia, unspecified severity, with mood disturbance; F32.A Depression, unspecified; J44.9 Chronic obstructive pulmonary disease, unspecified; Z79.51 Long term (current) use of inhaled steroids; Z79.84 Long term (current) use of oral hypoglycemic drugs; Z79.890 Hormone replacement therapy; Z79.899 Other long term (current) drug therapy; Z88.0 Allergy status to penicillin; Z99.81 Dependence on supplemental oxygen; W18.39XA Other fall on same level, initial encounter; Y93.89 Activity, other specified; Y92.89 Other specified places as the place of occurrence of the external cause; Y99.8 Other external cause status
CPT/HCPCS: 70450; 71101; 73562; 99284

== ENCOUNTER 2024-05-12 02:59 | Inpatient (IN) | payer OTHER, MEDICARE ==
[~2024-05-12] VITALS: Ht 149.9 cm; Wt 75.3 kg
--- NOTE | 2024-05-12 03:27 | NUR ---
PT CARE ASSUMED AT THIS TIME
[2024-05-12 03:38] LABS: BASOPHILS # (AUTO) 0.03 K/uL (0.00-0.20); BASOPHILS % (AUTO) 0.2 % (0.0-5.0); EOSINOPHILS # (AUTO) 0.05 K/uL (0.00-0.70); EOSINOPHILS % (AUTO) 0.3 % (0.0-8.0); HEMATOCRIT 41.9 % (36-48); IMMATURE GRANULOCYTE ABSOLUTE 0.09 K/uL (0-1); LYMPHOCYTES # (AUTO) 0.4 K/uL (1.0-4.8); LYMPHOCYTES % (AUTO) 2.7 % (21.0-51.0); MEAN CORPUSCULAR HEMOGLOBIN 29.3 pg (27.0-33.0); MEAN CORPUSCULAR HGB CONC 33.9 g/dL (32.0-36.0); MEAN CORPUSCULAR VOLUME 86.4 fL (79-99); MONOCYTES # (AUTO) 0.6 K/uL (0.1-1.0); MONOCYTES % (AUTO) 3.7 % (3.0-13.0); NEUTROPHILS # (AUTO) 14.2 K/uL (1.8-7.7); NEUTROPHILS % (AUTO) 92.5 % (40.0-77.0); PLATELET COUNT (AUTO) 289 K/uL (130-400); RED BLOOD CELL COUNT(AUTO) 4.85 MIL/uL (4.00-5.50); RED CELL DISTRIBUTION WIDTH 12.8 % (11.0-15.5); WHITE BLOOD COUNT (AUTO) 15.3 K/uL (4.8-10.8)
[2024-05-12] MEDS: ceFEPime HCL 2 GM VIAL IVPB SCH (03:42)
[2024-05-12] MEDS: 0.9%NACL 1000ML 1,000 ML IV ONE ×2 (03:42→05:06)
[2024-05-12] MEDS: ondanSETRON 4MG INJ IVP ONE (03:42)
[2024-05-12 03:58] LABS: ALBUMIN 3.6 g/dL (3.5-5.0); BILIRUBIN,DIRECT 0.1 mg/dL (0.0-0.3); BILIRUBIN,TOTAL 0.4 mg/dL (0.2-1.0); CREATININE 1.2 mg/dL (0.5-1.0); POTASSIUM 4.4 mmol/L (3.5-5.1)
[2024-05-12 04:18] LABS: INFLUENZA TYPE A Negative For Type A (NEGATIVE); INFLUENZA TYPE B Negative For Type B (NEGATIVE)
--- NOTE | 2024-05-12 04:55 | ERN ---
ED Note History of Present Illness Stated Complaint: VOMITING,FEVER,DIZZY Chief Complaint: Sepsis Time Seen by MD: 04:34 Time Seen by Midlevel: 04:34 Dictation: The patient is a 74-year-old female with a history of diabetes, hypertension, hyperlipidemia, COPD on chronic O2 at home, who presents to the emergency department with complaints of two episodes of nonbloody vomiting onset 7:30 p.m.. Patient reports also increase in nonproductive cough. Denies any shortness of breath, diarrhea or constipation. Denies any abdominal pain or chest pain. Allergies: Coded Allergies: Penicillins (Unverified Allergy, Mild, RASH, 06/13/17) Home Meds Reported Medications Atorvastatin Calcium (Atorvastatin Calcium) 80 Mg Tablet, 80 MG PO HS, TAB 01/18/23 Fluticasone/Vilanterol (Breo Ellipta 200-25 Mcg INH) 200 Mcg-25 Mcg/Dose Blst.w.dev, 1 EACH IH DAILY 01/18/23 Sitagliptin Phosphate (Januvia) 100 Mg Tablet, 100 MG PO DAILY, TAB 08/26/22 Levothyroxine Sodium (Levothyroxine) 88 Mcg Capsule, 88 MCG PO ACBKFST, CAP 08/26/22 Olanzapine (Olanzapine) 10 Mg Tablet, 10 MG PO HS, TAB 08/26/22 Donepezil HCl (Donepezil HCl) 10 Mg Tablet, 10 MG PO HS, TAB 08/26/22 Ramipril (Ramipril) 2.5 Mg Capsule, 2.5 MG PO DAILY, CAP 08/26/22 Escitalopram Oxalate (Escitalopram Oxalate) 20 Mg Tablet, 20 MG PO DAILY, TAB 08/26/22 Discontinued Reported Medications Calcium Carbonate (Calcium) 600 Mg Calcium (1500 Mg) Tablet, 600 MG PO DAILY, TAB 01/18/23 Ascorbic Acid (Vitamin C) 1,000 Mg Tablet, 1000 MG PO DAILY, TAB 08/26/22 Discontinued Scripts Cephalexin Monohydrate (Keflex) 500 Mg Cap, 500 MG PO BID for 5 Days, #10 CAP Prov:ALESSIA CHIANG 04/20/24 Famotidine (Pepcid) 20 Mg Tablet, 1 TAB PO BID for 5 Days, #10 TAB 0 Refills Prov:VIDYA ROMERO 01/15/24 Ondansetron (Ondansetron Odt) 4 Mg Tab.rapdis, 4 MG PO BID for 7 Days, #14 TAB Prov:VIDYA ROMERO 01/15/24 Guaifenesin/Dextromethorphan (Mucinex Dm ER 1,200-60 mg Tab) 1,200 Mg-60 Mg Tbmp.12hr, 1 EACH PO BID, #20 TAB Prov:ROLAND ONOFRE MD 06/18/23 Azithromycin (Zithromax Tri-Nolberto) 500 Mg Tablet, 500 MG PO DAILY, #3 TAB Prov:ROLAND ONOFRE MD 06/18/23 Prednisone (Prednisone) 20 Mg Tablet, 1 TAB PO AD for 6 Days, #14 TAB 0 Refills TAKE 3 TAB BY MOUTH daily X3 DAYS, THEN TAKE 2 TAB BY MOUTH daily X2 DAYS, THEN TAKE 1 TAB BY MOUTH ONCE A DAY X1 DAY. Prov:ROLAND ONOFRE MD 06/18/23 Past Medical History Past Medical History: Dementia, Hypertension Additional Past Medical Hx: HX OF OSTEROPOROSIS Surgical History: Cholecystectomy Surgical History Other: RT MASTECTOMY Family History: CAD, DM, HTN Social History: Negative, Lives with family History: Not Applicable RN Note Reviewed/Agreed w/PFSH: Yes Review of System Dictation Constitutional: Negative for chills, and weight loss positive for fevers Eyes: Negative for injury, pain,redness, and discharge ENT: Negative for injury,pain or swelling Cardiovascular: Negative for chest pain, palpitations, and edema Respiratory: Negative for shortness of breath,, and wheezing, positive for cough Abdomen/GI: Negative for abdominal pain, diarrhea, and constipation positive for nausea vomiting Back: Negative for injury and pain : Negative for injury, bleeding and discharge MS/Extremity: Negative for injury and deformity Skin: Negative for rash, and discoloration Neuro: Negative for headache, weakness, numbness, tingling, and seizure Psych: Negative for suicide ideation, homicidal ideation, and hallucinations Initial Vital Sign VS Vital Signs Date Time Temp Pulse Resp B/P (MAP) Pulse Ox O2 Delivery O2 Flow Rate FiO2 05/12/24 03:10 100.9 114 18 156/64 96 Room Air* 0 21 Physical Exam Dictation Vital Signs reviewed General Appearance: Alert, oriented x 3, no acute distress, well developed, nourished. Head and Face: non-traumatic. Eyes: PERRL, pink conjunctivas, eyelid no trauma, anterior chamber with arcus senilis. Ears: Pinnas intact and no signs of trauma or erythema ear canals clear and no discharge TM no erythema Nose: No discharge, no bleeding. Oropharynx: Mouth normal, tongue pink. pharynx clear,no erythema, tonsils no exudates, no abscesses noted, mucous membrane moist Neck: Supple, non-tender, no thyromegaly, no masses, no JVD, no bruits Breast:Deferred Chest:No tenderness, no crepitus, no paradoxical movement, no retractions Lungs:Clear, well-ventilated, symmetric, no rales, no wheezing, no rhonchi, no stridor, good breath sounds bilaterally Heart: Regular rate, regular rhythm, no murmur, no gallops Vascular: no peripheral edema, Abdomen: Soft, positive bowel sounds, nondistended, no guarding, nontender, no rebound, no masses no hepatomegaly, no splenomegaly, no Crum's sign, no hernias. Rectal: Deferred Genital: Deferred Neurological: Normal speech, motor function intact, sensory function intact Musculoskeletal: Neck nontender, full range of motion, back nontender, full range of motion, Extremities: nontender, full range of motion Skin: Color pink, dry, no turgor, no rash, no lacerations, no abrasions, no contusions. Lymphatic: Deferred Results (Laboratory/Radiology) Laboratory/Radiology Laboratory Tests Test 05/16/24 11:39 05/16/24 17:07 05/16/24 19:58 05/17/24 04:59 Whole Blood Glucose 210 MG/DL (70-110) H 200 MG/DL (70-110) H 172 MG/DL (70-110) H 203 MG/DL (70-110) H Test 05/17/24 11:20 05/17/24 16:17 05/17/24 19:32 05/18/24 05:17 Whole Blood Glucose 187 MG/DL (70-110) H 239 MG/DL (70-110) H 215 MG/DL (70-110) H 184 MG/DL (70-110) H Test 05/18/24 11:43 05/18/24 15:52 Whole Blood Glucose 236 MG/DL (70-110) H 236 MG/DL (70-110) H Labs Reviewed?: Yes EKG: (+) rhythm (Sinus tachycardia) EKG Comment: Date:05/12/2024 Time:0307 Ventricular rate:119 MS interval:148 QRS duration:84 QT/QTc:349 EKG interpretation: Sinus tachycardia Reviewed by ED Attending no STEMI ED Course ED Course Orders Procedure Category Date Status Time Hydralazine 20mg Inj PHA 05/17/24 Complete (Apresoline 20mg In 12:30 Ankle 2vws Rt RAD 05/18/24 Resulted 15:22 Us Venous Doppler US 05/18/24 Resulted Unilateral 15:22 *General Dc DS 05/18/24 Transmitted Instructions 16:36 Vital Signs Date Time Temp Pulse Resp B/P (MAP) Pulse Ox O2 Delivery O2 Flow Rate FiO2 05/18/24 16:00 98.4 79 17 141/52 95 Nasal Cannula 2.0 05/18/24 12:00 98.1 94 18 127/91 99 Nasal Cannula 2.0 05/18/24 09:10 98.4 83 17 181/44 93 Nasal Cannula 2.0 05/18/24 08:00 93 Nasal Cannula* 2 05/18/24 03:42 98.2 64 19 150/58 96 Nasal Cannula 2.0 05/17/24 23:36 98.1 61 19 150/55 97 Nasal Cannula 2.0 05/17/24 21:22 98.8 74 18 144/54 95 Nasal Cannula 2.0 05/17/24 20:00 94 Room Air* 0 05/17/24 19:26 94 Room Air* 0 05/17/24 16:42 97.5 86 19 139/55 94 Nasal Cannula 2.0 05/17/24 12:14 98.8 83 19 177/67 93 Nasal Cannula 2.0 05/17/24 08:34 98.1 75 20 161/62 94 Nasal Cannula 2.0 05/17/24 04:00 97.9 64 18 155/59 90 Nasal Cannula 2.0 05/16/24 23:58 97.9 73 18 168/66 97 Nasal Cannula 2.0 05/16/24 20:29 97 Nasal Cannula* 2 28 05/16/24 20:00 98.2 67 18 131/57 93 Nasal Cannula 2.0 05/16/24 16:00 98.1 69 18 166/86 96 Room Air 05/16/24 12:00 98.2 71 20 162/54 96 Room Air Medical Decision Making MDM MDM:The patient is a 74-year-old female with a history of diabetes, hypertension, hyperlipidemia, COPD on chronic O2 at home, who presents to the emergency department with complaints of two episodes of nonbloody vomiting onset 7:30 p.m.. Patient reports also increase in nonproductive cough. Denies any shortness of breath, diarrhea or constipation. Denies any abdominal pain or chest pain. CBC showed leukocytosis, no anemia, chemistry showed mild hyponatremia, hypochloremia, GFR of 48, glucose of 470, no DKA, negative troponin, negative liver enzymes, negative lipase, negative serology. CT abd and pelvis shoed acute minimally displace fracture of the posterior right 11 rib. Patient will be admitted for sepsis Differential diagnosis: Sepsis, septic shock, pneumonia, gastroenteritis, dehydration Comorbidities: COPD, diabetes, hypertension, hyperlipidemia, dementia Tests considered and not ordered secondary to shared decision making include: none Previous outside records reviewed: none Risk of complication and/or morbidity or mortality of patient management: The patient meets criteria for admission. Need for emergency major/minor surgery: No There are no social concerns with this patient. I independently interpreted the tests I ordered (labs, urinalysis, etc.). I discussed the case with the hospitalist for admission. who accepts admission. I discussed the case with the following specialists: none. Historian: pateint. I independently interpreted imaging studies and EKGs that I ordered (US, CT, XR, EKG, etc.). External chart review: none. Medical management and examination interpretation discussions were had by me with other qualified healthcare professionals as indicated for the patient's care. Critical Care Note Critical Time: other (Total critical care time was 33 minutes. Excluding time for procedures. Management of critically ill patient with concern for acute decompensation. Management included interpretation of laboratory values and imaging, hemodynamics, time for consultation with consultants and admitting physician.) DX & DISP Disposition: Inpatient Decision to Admit Date: May 12, 2024 Decision to Admit Time: 07:12 Departure Impression: Primary Impression: Sepsis Additional Impressions: UTI (urinary tract infection), Right rib fracture, PNA (pneumonia), Uncontrolled diabetes mellitus with hyperglycemia, Leukocytosis, Hyponatremia, Hypochloremia Condition: Stable Referrals: ARTURO PEREZ MD (PCP) I have reviewed the case, and I agree with, Diagnosis and Plan I performed the substantive portion of the visit. I have reviewed and personally made and approve the management plan that is documented in the notes by myself or the PAULO. I acknowledge full responsibility for the patient's management plan. ALESSIA CHIANG May 12, 2024 04:55 KAMRAN REYES MD May 19, 2024 11:22
[2024-05-12] MEDS: INSULIN humuLIN R 100 UNIT/ML 3ML IV ONE (05:05)
--- NOTE | 2024-05-12 05:18 | NUR ---
BLADDER SCAN PREFORMED AT THIS TIME. 297 MLS FOUND ON SCAN. 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
[2024-05-12 05:58] LABS: APPEARANCE,URINE CLEAR (CLEAR); BILIRUBIN,URINE NEGATIVE (NEGATIVE); COLOR,URINE LIGHT-YELLOW (YELLOW); GLUCOSE, URINE (UA) >=1000 mg/dL (NEGATIVE); KETONES,URINE NEGATIVE (NEGATIVE); LEUKOCYTE ESTERASE ,URINE 250 Leu/uL (NEGATIVE); NITRATE,URINE NEGATIVE (NEGATIVE); OCCULT BLOOD,URINE SMALL (NEGATIVE); PROTEIN,URINE 10 mg/dL (NEGATIVE); UROBILINOGEN,URINE 0.2 mg/dL (0.2-1.0)
[2024-05-12 05:59] LABS: ADD UA MICROSCOPIC YES
[2024-05-12 06:00] LABS: MUCUS,URINE RARE LPF (None Seen)
--- NOTE | 2024-05-12 06:28 | NUR ---
SON PHONE NUMBER [phone]
--- NOTE | 2024-05-12 07:09 | NUR ---
REPORT GIVEN TO MARYJANE PIERRE AT THIS TIME
[2024-05-12] MEDS ORDERED: GLUCAGON 1MG KIT 1 MG ML IM PRN (07:30)
[2024-05-12] MEDS ORDERED: DEXTROSE 50%-WATER 50 ML DISP.SYRIN IV PRN (07:30)
[2024-05-12] MEDS ORDERED: ondanSETRON 4MG INJ IVP PRN (07:30)
--- NOTE | 2024-05-12 07:44 | EKG ---
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
--- NOTE | 2024-05-12 08:10 | NUR ---
dr. Mccaryt notified of elveated lactic acid 2.5, no new orders at this time, primary nurse Micaela RN noted
[2024-05-12] MEDS: MEROPENEM 1GM 1 GM VIAL IV SCH (08:46)
[2024-05-12] MEDS: 0.9%NACL 1000ML 1,000 ML IV SCH (08:46)
[2024-05-12] MEDS: INSULIN LISpro 100 UNIT/ML 3ML SQ SCH (08:47)
--- NOTE | 2024-05-12 09:22 | HMCIMG ---
CT ABDOMEN/PELVIS W/O CONTRAST HISTORY: No additional history given. COMPARISON: None TECHNIQUE: Multiple sequential axial images of the abdomen and pelvis were obtained from the dome of the diaphragm through symphysis pubis. Patient was not given contrast through intravenous route. Oral contrast was not given. FINDINGS: No pleural effusion is seen bilaterally. There is no evidence of parenchymal disease or pulmonary nodule of the visualized lower lungs. Degenerative changes of the thoracolumbar spine are present. The heart is not enlarged. A small hiatal hernia is seen. Liver measures 18.3 cm. The liver, spleen, adrenal glands and pancreas are unremarkable. There is no evidence of hydronephrosis bilaterally. No evidence of renal stone is seen. There is diverticulosis. There are bilateral renal cortical scarring. Fecal material is seen in the colon. There are normal size retroperitoneal and mesenteric lymph nodes. No ascites is seen. Atherosclerotic changes are present. Pelvic sidewalls are symmetric bilaterally. Bladder is well distended without wall thickening. IMPRESSION: 1. Diverticulosis. No ascites. CT was performed with one or more following dose reduction techniques: automated exposure control, adjustment of the mA and kv according to patient's size, or use of a iterative reconstruction technique.
--- NOTE | 2024-05-12 12:52 | HMCIMG ---
CHEST 1VW HISTORY: Fever COMPARISON: 04/30/2024 FINDINGS: A frontal projection of the chest was obtained. No acute pulmonary infiltrates is seen. The heart is borderline enlarged. Degenerative changes are seen. Prominent interstitial markings are seen IMPRESSION: 1. No acute pulmonary infiltrate is seen.
--- NOTE | 2024-05-12 19:12 | HP ---
DATE OF SERVICE: 05/12/2024. PRESENTING COMPLAINT: Fever, chills, and urinary symptoms. HISTORY OF PRESENT ILLNESS: A 74-year-old female with diabetes mellitus, hypertension, dyslipidemia, and a right breast cancer, who presented to the hospital with nausea, vomiting, fever, and urinary symptoms. According to the son, the patient had an episode of fall about a week ago, was brought to the emergency room. The patient was evaluated and released home. The patient has been complaining of some weakness, poor oral intake. The patient has dysuria and urinary frequency. WBC in the emergency room was elevated at 15,000. Urinalysis came back positive. T-max was 100.9. The patient also has some cough, which is dry. No hemoptysis. PAST MEDICAL HISTORY: * Diabetes mellitus. * Hypertension. * Dyslipidemia. * COPD. * Chronic respiratory failure with oxygen use at home. * Hypothyroidism. * Dementia. * Right breast cancer. PAST SURGICAL HISTORY: * Right mastectomy. * Cholecystectomy. ALLERGIES: No known drug allergies. HOME MEDICATIONS: Reviewed. SOCIAL HISTORY: Lives with son. No alcohol, tobacco, or illicit drug use. FAMILY HISTORY: Positive for diabetes mellitus. REVIEW OF SYSTEMS: CONSTITUTIONAL: Positive for fever and chills. No weight loss. EYES: No eye pain, no photophobia or diplopia. HENT: No sore throat, no rhinorrhea or earache. NECK: No neck pain or neck swelling. RESPIRATORY: Positive for cough. No hemoptysis or pleuritic pain. CARDIOVASCULAR: No chest pain, no palpitation or orthopnea. GASTROINTESTINAL: Positive for nausea and vomiting. No abdominal pain. GENITOURINARY: Positive for dysuria, urinary frequency. CENTRAL NERVOUS SYSTEM: No headache, dyspnea, or slurred speech. PSYCHIATRY: No depression. No suicidal ideation. MUSCULOSKELETAL: No joint pain, no joint swelling. PHYSICAL EXAMINATION: GENERAL: Elderly female, awake. VITAL SIGNS: Temperature 100.9, pulse 114, respiratory rate 18, BP 156/64. EYES: No icterus. Pupils equal and reactive. HENT: No oral thrush seen. Moist oral mucosa. NECK: Supple. No JVD or thyromegaly. LUNGS: Good air entry. No rales, no rhonchi. CARDIOVASCULAR SYSTEM: S1, S2 regular. No murmur heard. ABDOMEN: Full, soft, nontender. Bowel sound is present. CENTRAL NERVOUS SYSTEM: Awake, alert, bedbound debility. SKIN: No rashes, no itchiness. LYMPHATIC: No peripheral lymphadenopathy. BACK: No deformity, no pressure ulcer. MUSCULOSKELETAL: No joint swelling, erythema, or tenderness. LABORATORY DATA: Glucose 470. Sodium 135, potassium 4.4, BUN 31, creatinine 11.2. WBC 15.3, hemoglobin 14.2, platelets 289. Influenza antigen negative. Urinalysis; wbc's 25, leukocyte esterase 250. RADIOLOGY: CT of the abdomen and pelvis showed diverticulosis with no acute finding. Chest x-ray unremarkable. ASSESSMENT: A 74-year-old female presented with fever, nausea, and vomiting. CURRENT PROBLEMS: Include: * Sepsis. * Urinary tract infection. * Nonketotic hyperglycemia. * Dehydration. * Dementia. * ____ leukocytosis. PLAN: * The patient admitted to medical floor. * The patient will be placed on meropenem. * Start the patient on insulin sliding scale. * The patient will be placed on IV fluids. * ____. * Lovenox for DVT prophylaxis. * Follow up cultures. * Monitor electrolytes. * The patient will be followed up closely. TID: [id number] RECEIPT: [id number]
[2024-05-13 06:20] LABS: HEMATOCRIT 38.7 % (36-48); MEAN CORPUSCULAR HEMOGLOBIN 29.2 pg (27.0-33.0); MEAN CORPUSCULAR HGB CONC 32.6 g/dL (32.0-36.0); MEAN CORPUSCULAR VOLUME 89.6 fL (79-99); RED BLOOD CELL COUNT(AUTO) 4.32 MIL/uL (4.00-5.50); RED CELL DISTRIBUTION WIDTH 13.2 % (11.0-15.5)
[2024-05-13 06:26] LABS: HEMOGLOBIN A1C 12.2 % (4.0-6.0); MAGNESIUM 1.7 mg/dL (1.80-2.40); POTASSIUM 3.6 mmol/L (3.5-5.1)
[2024-05-13] MEDS ORDERED: MAGNESIUM 4GM PREMIX 100ML 100 ML IV SCH (09:00)
--- NOTE | 2024-05-13 09:00 | NUR ---
HOME MEDICATIONS PT'S SON ADMINISTERED PT'S HOME MEDICATIONS
--- NOTE | 2024-05-13 11:13 | NUR ---
DR SOLIS AT BEDSIDE W/PT.
--- NOTE | 2024-05-13 14:30 | NUR ---
PERSONAL HYGIENE PT WAS INCONTINENT TO URINE AND STOOL.PT CLEANED, BEDSHEET, GOWN AND DIAPER CHANGED.SHE WAS MOVED UP IN THE BED.SITTING UP COMFORTABLY WATCHING TV.
[2024-05-13 19:17] VITALS: BP 138/54; PULSE 83; RESP 18; TEMP 100
[2024-05-13] MEDS ORDERED: FLUT1BLS3 IH (19:52)
[2024-05-13 20:00] VITALS: O2SAT 96
[2024-05-13] MEDS: atorVAStatin 40 MG TABLET PO SCH (20:50)
[2024-05-13] MEDS: doNEPEZil HCL 5 MG TAB PO SCH (20:50)
[2024-05-13 23:58] VITALS: BP 155/46; PULSE 89; RESP 18; TEMP 98.3
--- NOTE | 2024-05-14 03:03 | PN ---
DATE OF SERVICE: 05/13/2024 INFECTIOUS DISEASE FOLLOWUP NOTE SUBJECTIVE: The patient is seen and examined at bedside. The patient denies any fever or chills. No rashes or itchiness. Bedbound debility. No neck pain or neck swelling. PHYSICAL EXAMINATION: VITAL SIGNS: Temperature today 97.5. EYES: No icterus. Pupils equal and reactive. HENT: No oral thrush seen. Moist oral mucosa. NECK: Supple. No JVD. No thyromegaly. LUNGS: Good air entry. No rales, no rhonchi. CARDIOVASCULAR SYSTEM: S1, S2 regular. No murmur heard. ABDOMEN: Soft, nontender. Bowel sounds are present. CENTRAL NERVOUS SYSTEM: Awake and alert. Bedbound debility. SKIN: No rashes or itchiness. LYMPHATIC: No peripheral lymphadenopathy. BACK: No deformity. ASSESSMENT: A 74-year-old female with multiple problems include: * Gram-negative sepsis. * Urinary tract infection. * Nonketotic hyperglycemia. * Dehydration. * Dementia. * Leukocytosis. PLAN: * Continue meropenem. * Follow up cultures. * Continue pain management. * Continue antidiabetic. * Continue IV fluids. * Monitor electrolytes. * The patient will be followed up closely. TID: [id number] RECEIPT: [id number]
[2024-05-14 04:32] VITALS: BP 160/57; PULSE 77; RESP 18; TEMP 98.5
[2024-05-14 05:04] LABS: CREATININE 0.7 mg/dL (0.5-1.0); MAGNESIUM 1.8 mg/dL (1.80-2.40); POTASSIUM 3.5 mmol/L (3.5-5.1)
[2024-05-14] MEDS: MAGNESIUM 2GM PREMIX 50ML 50 ML IV PRN (05:12)
[2024-05-14] MEDS: levoTHYROxine 88 MCG TABLET PO SCH (06:07)
[2024-05-14 08:00] VITALS: BP 147/55; PULSE 77; RESP 18; TEMP 98.2; O2SAT 96
[2024-05-14] MEDS: LISINOPRIL 5 MG TABLET PO SCH (08:23)
[2024-05-14] MEDS: linAGLIPtin 5 MG TABLET PO SCH (08:23)
[2024-05-14] MEDS: citaLOPram 20 MG TABLET PO SCH (08:23)
[2024-05-14] MEDS: oLANZapine 5 MG TAB PO SCH (08:23)
--- NOTE | 2024-05-14 11:25 | NUR ---
Discharge Planning: Pt. is currently on 1:1 observation. Has a prompt for SNF placement from Dr. Pelayo. Pt. states to please call her son Luisito Singer. Called twice and left messages. Pending return call. Pt. states her PCP is Dr. Mock and preferred pharmacy is [facility] [address] States she ambulates with a walker at home. Addendum: 05/14/24 at 1130 by ANTHONY PARK RN CM Amended: Links added.
[2024-05-14 11:53] VITALS: BP 157/70; PULSE 75; RESP 19; TEMP 98
[2024-05-14] MEDS: fluTICasone/viLANTerol 1 EACH BLST.W.DEV IH SCH (12:57)
[2024-05-14 16:00] VITALS: BP 151/65; PULSE 74; RESP 19; TEMP 98
[2024-05-14 20:00] VITALS: BP 156/71; PULSE 77; RESP 20; TEMP 98
[2024-05-14 20:27] VITALS: O2SAT 97
--- NOTE | 2024-05-14 21:43 | PN ---
INFECTIOUS DISEASE FOLLOWUP NOTE DATE OF SERVICE: 05/14/2024 SUBJECTIVE: The patient is seen and examined at bedside today. The patient ____ chills. No nausea, vomiting. No abdominal pain. Tolerating antibiotics. No chest pain. No palpitation or orthopnea. No bleeding tendency. No rashes or itchiness. PHYSICAL EXAMINATION: VITAL SIGNS: Temperature 98.1. EYES: No icterus. Pupils equal and reactive. HENT: No oral thrush seen. Moist oral mucosa. NECK: Supple. No JVD or thyromegaly. LUNGS: Good air entry. No rales, no rhonchi. CARDIOVASCULAR SYSTEM: S1, S2 regular. No murmur heard. ABDOMEN: Full, soft. Bowel sounds present. CENTRAL NERVOUS SYSTEM: The patient is awake, alert, bedbound debility. SKIN: No rashes, no itchiness. LYMPHATIC: No peripheral lymphadenopathy. MUSCULOSKELETAL: No joint swelling, erythema or tenderness. BACK: No deformity, no pressure ulcer. ASSESSMENT: A 74-year-old female presenting with ____ fever, chills and weakness. Current problems include: * Gram-negative sepsis. * Urinary tract infection. * Nonketotic hyperglycemia. * Dehydration. * Dementia. * Leukocytosis. PLAN: * Continue meropenem. * Continue pain management. * Continue antidiabetic. * Continue nutritional support. * Monitor electrolytes. * Continue antiemetic. TID: [id number] RECEIPT: [id number]
[2024-05-15] VITALS (8 sets, daily range): BP systolic 145–158; BP diastolic 51–71; PULSE 65–79; RESP 19–20; TEMP 98–98.3; O2SAT 96–97
--- NOTE | 2024-05-15 14:36 | PN ---
INFECTIOUS DISEASE PROGRESS NOTE Date of Service: May 15, 2024 SUBJECTIVE: This is 74-year-old female patient who presented to the hospital with chief complaint of nausea, vomiting, fever, dysuria and urinary frequency. A urine culture collected on admission came back positive for Proteus mirabilis. Patient has been started on Meropenem 1 g IV every 8 hours. Today patient was seen and examined at bedside in room 304. Patient is awake, alert and able to answer basic questions. Patient is afebrile, temperature is 98.1. And the latest WBC is 9.0. No reports of nausea or vomiting this morning. We will continue on Meropenem IV. Case management has been consulted to evaluate patient for SNF placement. We will continue to follow patient's care. PHYSICAL EXAM EYES: Anicteric. Pupils equal and reactive. HENT: No oral thrush seen, moist Oral mucosa. NECK: Supple, no JVD or thyromegaly. LUNGS: Good air entry. No rales, no rhonchi. CARDIOVASCULAR: S1, S2 regular. No murmur heard. ABDOMEN: Soft, non tender, bowel sounds present, no organomegaly. CENTRAL NERVOUS SYSTEM: Awake, alert, oriented x 3. LYMPHATICS: No peripheral lymphadenopathy. MUSCULOSKELETAL: No joint swelling, erythema or tenderness. EXTREMITIES: No cyanosis or clubbing. BACK: No deformity, no pressure ulcer. GENITOURINARY: No hematuria. Dysuria, POA Vital Sign (Last 12 Hours) 05/15/24 05/15/24 05/15/24 05/15/24 04:00 07:59 08:00 12:00 Temp 98.2 98.1 98.1 Pulse 65 66 79 Resp 20 19 20 B/P (MAP) 152/51 153/71 152/53 Pulse Ox 96 96 96 93 O2 Delivery Nasal Cannula Nasal Cannula Nasal Cannula* Nasal Cannula O2 Flow Rate 2.0 2.0 2 2.0 FiO2 28 Intake & Output (last 24hrs) 05/14/24 05/14/24 05/15/24 15:00 23:00 07:00 Intake Total 100.0 ml 100.0 ml Balance 100.0 ml 100.0 ml LABS: Laboratory: Test 05/15/24 11:14 05/14/24 04:16 Range/Units Whole Blood Glucose 200 H 70-110 MG/DL Sodium Level 139 136-145 mmol/L Potassium Level 3.5 3.5-5.1 mmol/L Chloride Level 106 101-111 mmol/L Carbon Dioxide Level 26 21-32 mmol/L Blood Urea Nitrogen 10 7-18 mg/dL Creatinine 0.7 0.5-1.0 mg/dL Glomerular Filtration Rate Calc 91 >90 mL/min Random Glucose 182 H 70-105 mg/dL Total Calcium 7.3 L 8.5-10.1 mg/dL Magnesium Level 1.80 1.80-2.40 mg/dL DIAGNOSTICS / RADIOLOGY: PATIENT: GAURAV KOCH ACCT: [id number] LOC: [facility] U: [id number] AGE/SX: 74/F ROOM: [facility] RE05/12/[address]: MAX SOLIS MD : 1950 BED: 1 DIS: STATUS: ADM IN TLOC: SPEC: [id number] SHIRLENE: 05/12/24 STATUS: COMP REQ: [id number] RECD: 05/13/[address]: KAMRAN REYES MD SOURCE: URINE CATH ENTR: 05/13/24 [facility] DR: ARTURO PEREZ MD [facility]: CATHERIZED ORDERED: AERO ID & SENS Procedure Result Noe Date-Time AEROBIC ID & SENSITIVITIES Final 05/14/24-0623 MRL COLONY DESCRIPTION: DAY 1: COLONY COUNT: 10,000 - 20,000 CFU/ML GRAM NEGATIVE RODS IDENTIFICATION AND SENSITIVITY TO FOLLOW PROTEUS MIRABILIS PMIRABILIS M.I.C. RX --------- ---- AMPICILLIN <=8 S AZTREONAM <=4 S CEFAZOLIN <=2 S CEFTAZIDIME/AVIBACTAM <=8 S GENTAMICIN <=2 S LEVOFLOXACIN <=0.5 S MEROPENEM <=1 S PIPERACILLIN/TAZOBACTAM <=8 S TRIMETHOPRIM/SUFLAMETHOXAZOLE <=2/38 S ASSESSMENT: Urinary tract infection with Proteus mirabilis. Leukocytosis POA, resolving. Nonketotic hyperglycemia. Dementia. Dehydration. Debility. PLAN: Continue meropenem. We will follow up on the blood culture results. Continue pain management. Glucometer checks a.c./hs and cover with insulin per sliding scale protocol. We will monitor electrolytes. Case management has been consulted for SNF placement. Continue physical therapy. This case was reviewed and discussed with my supervising physician and the above assessment and plan was formulated and agreed upon. ATTESTATION BY PHYSICIAN I have seen and examined the patient. I reviewed the documentation, medical decision making, and treatment plan as noted by the mid-level provider above. I agree with the findings and plan of care. MAX SOLIS MD, MIRTA L INCOME TAX RETURN PREPARER May 15, 2024 14:36
[2024-05-15] MEDS: fluTICasone/viLANTerol 1 EACH BLST.W.DEV IH SCH (16:17)
[2024-05-16] VITALS (8 sets, daily range): BP systolic 131–168; BP diastolic 49–86; PULSE 57–73; RESP 18–20; TEMP 97.4–98.4; O2SAT 96–97
[2024-05-16 05:52] LABS: HEMATOCRIT 37.3 % (36-48); MEAN CORPUSCULAR HEMOGLOBIN 29.5 pg (27.0-33.0); MEAN CORPUSCULAR HGB CONC 32.7 g/dL (32.0-36.0); MEAN CORPUSCULAR VOLUME 90.1 fL (79-99); RED BLOOD CELL COUNT(AUTO) 4.14 MIL/uL (4.00-5.50); RED CELL DISTRIBUTION WIDTH 13.2 % (11.0-15.5); WHITE BLOOD COUNT (AUTO) 9.3 K/uL (4.8-10.8)
[2024-05-16 06:06] LABS: CREATININE 0.7 mg/dL (0.5-1.0); MAGNESIUM 1.9 mg/dL (1.80-2.40); POTASSIUM 3.7 mmol/L (3.5-5.1)
[2024-05-16] MEDS: acetaMINOPHEN 325 MG TAB PO PRN (20:30)
--- NOTE | 2024-05-16 20:35 | PN ---
INFECTIOUS DISEASE PROGRESS NOTE Date of Service: May 16, 2024 SUBJECTIVE: This is 74-year-old female patient who presented to the hospital with chief complaint of nausea, vomiting, fever, dysuria and urinary frequency. A urine culture collected on admission came back positive for Proteus mirabilis. Patient has been started on Meropenem 1 g IV every 8 hours. Today patient was seen and examined at bedside in room 304. Patient is awake, alert and able to answer basic questions. No fever, temperature is 98.4. We will continue on Meropenem IV. Case management has been consulted for evaluation and pending family decision on snf placement. We will continue to follow patient's care. PHYSICAL EXAM EYES: Anicteric. Pupils equal and reactive. HENT: No oral thrush seen, moist Oral mucosa. NECK: Supple, no JVD or thyromegaly. LUNGS: Good air entry. No rales, no rhonchi. CARDIOVASCULAR: S1, S2 regular. No murmur heard. ABDOMEN: Soft, non tender, bowel sounds present, no organomegaly. CENTRAL NERVOUS SYSTEM: Awake, alert, oriented x 2. LYMPHATICS: No peripheral lymphadenopathy. MUSCULOSKELETAL: No joint swelling, erythema or tenderness. EXTREMITIES: No cyanosis or clubbing. BACK: No deformity, no pressure ulcer. GENITOURINARY: No hematuria. Dysuria, POA Vital Sign (Last 12 Hours) 05/16/24 05/16/24 12:00 16:00 Temp 98.2 98.1 Pulse 71 69 Resp 20 18 B/P (MAP) 162/54 166/86 Pulse Ox 96 96 O2 Delivery Room Air Room Air Intake & Output (last 24hrs) 05/15/24 05/15/24 05/16/24 15:00 23:00 07:00 Intake Total 200 ml 1000.0 ml 100.0 ml Output Total 600 ml Balance -400 ml 1000.0 ml 100.0 ml LABS: Laboratory: Test 05/16/24 19:58 05/16/24 05:34 Range/Units Whole Blood Glucose 172 H 70-110 MG/DL White Blood Count 9.3 4.8-10.8 K/uL Red Blood Count 4.14 4.00-5.50 MIL/uL Hemoglobin 12.2 12.0-16.0 g/dL Hematocrit 37.3 36-48 % Mean Corpuscular Volume 90.1 79-99 fL Mean Corpuscular Hemoglobin 29.5 27.0-33.0 pg Mean Corpuscular Hemoglobin Concent 32.7 32.0-36.0 g/dL Red Cell Distribution Width 13.2 11.0-15.5 % Platelet Count 258 130-400 K/uL Mean Platelet Volume 9.9 7.5-10.5 fL Nucleated Red Blood Cells 0.0 0.0-0.19 % Sodium Level 141 136-145 mmol/L Potassium Level 3.7 3.5-5.1 mmol/L Chloride Level 106 101-111 mmol/L Carbon Dioxide Level 32 21-32 mmol/L Blood Urea Nitrogen 10 7-18 mg/dL Creatinine 0.7 0.5-1.0 mg/dL Glomerular Filtration Rate Calc 91 >90 mL/min Random Glucose 168 H 70-105 mg/dL Total Calcium 8.2 L 8.5-10.1 mg/dL Magnesium Level 1.90 1.80-2.40 mg/dL ASSESSMENT: Urinary tract infection with Proteus mirabilis. Leukocytosis POA, resolving. Nonketotic hyperglycemia. Dementia. Dehydration. Debility. PLAN: Continue meropenem. We will follow up on the blood culture results. Continue pain management. Glucometer checks a.c./hs and cover with insulin per sliding scale protocol. We will monitor electrolytes. Case management has been consulted for SNF placement. Continue physical therapy. This case was reviewed and discussed with my supervising physician and the above assessment and plan was formulated and agreed upon. ATTESTATION BY PHYSICIAN I have seen and examined the patient. I reviewed the documentation, medical decision making, and treatment plan as noted by the mid-level provider above. I agree with the findings and plan of care. MAX SOLIS MD, MIRTA L AUTOM[employer]S COUNTER ASSISTANT May 16, 2024 20:35
[2024-05-17] VITALS (8 sets, daily range): BP systolic 139–177; BP diastolic 54–67; PULSE 61–86; RESP 18–20; TEMP 97.5–98.7; O2SAT 94
[2024-05-17] MEDS: hydrALAZine 20MG/ML VIAL IV PRN (12:32)
--- NOTE | 2024-05-17 16:01 | PN ---
INFECTIOUS DISEASE PROGRESS NOTE Date of Service: May 17, 2024 SUBJECTIVE: This is 74-year-old female patient who presented to the hospital with chief complaint of nausea, vomiting, fever, dysuria and urinary frequency. A urine culture collected on admission came back positive for Proteus mirabilis. Patient has been started on Meropenem 1 g IV every 8 hours. Today patient was seen and examined at bedside in room 304. Patient is awake, alert and oriented to person. No dyspnea observe. Dysuria resolving. No fever, temperature is 98.8. Continues on Meropenem IV. Patient has been referred to [facility] and pending insurance approval. We will continue to follow patient's care. PHYSICAL EXAM EYES: Anicteric. Pupils equal and reactive. HENT: No oral thrush seen, moist Oral mucosa. NECK: Supple, no JVD or thyromegaly. LUNGS: Good air entry. No rales, no rhonchi. CARDIOVASCULAR: S1, S2 regular. No murmur heard. ABDOMEN: Soft, non tender, bowel sounds present, no organomegaly. CENTRAL NERVOUS SYSTEM: Awake, alert, oriented x 2. LYMPHATICS: No peripheral lymphadenopathy. MUSCULOSKELETAL: No joint swelling, erythema or tenderness. EXTREMITIES: No cyanosis or clubbing. BACK: No deformity, no pressure ulcer. GENITOURINARY: No hematuria. Dysuria, POA Vital Sign (Last 12 Hours) 05/17/24 05/17/24 05/17/24 04:00 08:34 12:14 Temp 97.9 98.1 98.8 Pulse 64 75 83 Resp 18 20 19 B/P (MAP) 155/59 161/62 177/67 Pulse Ox 90 94 93 O2 Delivery Nasal Cannula Nasal Cannula Nasal Cannula O2 Flow Rate 2.0 2.0 2.0 Intake & Output (last 24hrs) 05/16/24 05/16/24 05/17/24 15:00 23:00 07:00 Intake Total 0 ml 1000 ml 100.0 ml Output Total 1700 ml 1250 ml Balance 0 ml -700 ml -1150.0 ml LABS: Laboratory: Test 05/17/24 11:20 05/16/24 05:34 Range/Units Whole Blood Glucose 187 H 70-110 MG/DL White Blood Count 9.3 4.8-10.8 K/uL Red Blood Count 4.14 4.00-5.50 MIL/uL Hemoglobin 12.2 12.0-16.0 g/dL Hematocrit 37.3 36-48 % Mean Corpuscular Volume 90.1 79-99 fL Mean Corpuscular Hemoglobin 29.5 27.0-33.0 pg Mean Corpuscular Hemoglobin Concent 32.7 32.0-36.0 g/dL Red Cell Distribution Width 13.2 11.0-15.5 % Platelet Count 258 130-400 K/uL Mean Platelet Volume 9.9 7.5-10.5 fL Nucleated Red Blood Cells 0.0 0.0-0.19 % Sodium Level 141 136-145 mmol/L Potassium Level 3.7 3.5-5.1 mmol/L Chloride Level 106 101-111 mmol/L Carbon Dioxide Level 32 21-32 mmol/L Blood Urea Nitrogen 10 7-18 mg/dL Creatinine 0.7 0.5-1.0 mg/dL Glomerular Filtration Rate Calc 91 >90 mL/min Random Glucose 168 H 70-105 mg/dL Total Calcium 8.2 L 8.5-10.1 mg/dL Magnesium Level 1.90 1.80-2.40 mg/dL ASSESSMENT: Urinary tract infection with Proteus mirabilis. Leukocytosis POA, resolving. Nonketotic hyperglycemia. Dementia. Dehydration. Debility. PLAN: Continue meropenem. We will follow up on the blood culture results. Continue pain management. Glucometer checks a.c./hs and cover with insulin per sliding scale protocol. Continue physical therapy. Patient has been referred to [facility] and pending insurance approval. We will monitor electrolytes. This case was reviewed and discussed with my supervising physician and the above assessment and plan was formulated and agreed upon. ATTESTATION BY PHYSICIAN I have seen and examined the patient. I reviewed the documentation, medical decision making, and treatment plan as noted by the mid-level provider above. I agree with the findings and plan of care. MAX SOLIS MD, MIRTA L FNP May 17, 2024 16:01
[2024-05-17] MEDS: acetaMINOPHEN 325 MG TAB PO PRN (16:49)
[2024-05-18 03:42] VITALS: BP 150/58; PULSE 64; RESP 19; TEMP 98.2
[2024-05-18 08:00] VITALS: O2SAT 93
[2024-05-18 09:10] VITALS: BP 181/44; PULSE 83; RESP 17; TEMP 98.5
[2024-05-18 12:00] VITALS: BP 127/91; PULSE 94; RESP 18; TEMP 98
[2024-05-18 16:00] VITALS: BP 141/52; PULSE 79; RESP 17; TEMP 98.4
--- NOTE | 2024-05-18 16:33 | HMCIMG ---
US VENOUS DOPPLER UNILATERAL REASON: RIGHT ANKLE SWOLLEN COMPARISON: None Technique: Right venous doppler ultrasound was performed with spectral analysis and color flow imaging technique. FINDINGS: There is a normal appearance of the common femoral, deep femoral, the profunda femoris and popliteal veins. Proximal calf veins appear normal as well. There is normal response to compression and augmentation. There is no evidence of deep venous thrombosis. IMPRESSION: Normal right lower extremity venous Doppler ultrasound.
--- NOTE | 2024-05-18 16:41 | HMCIMG ---
ANKLE 2VWS RT REASON: SWOLLEN TECHNIQUE: 2 views were obtained. FINDINGS: There is no evidence of fracture or dislocation. There is no joint effusion. The soft tissues appear unremarkable. There is no evidence of a radiopaque foreign body. IMPRESSION: No acute findings.
--- NOTE | 2024-05-18 17:02 | NUR ---
DISCHARGE REPORT GIVEN TO NANCY JOSHUA WITH [facility] TO PICKUP PATIENTS' SON AWARE OF DISCHARGE. PIV REMOVED EARLIER DUE TO INFILTRATION ALL QUESTIONS ANSWERED PRIOR TO DISCHARGE
--- NOTE | 2024-05-18 17:30 | DS ---
Discharge Summary Hospital Course FINAL DISCHARGE DIAGNOSIS: Urinary tract infection with Proteus mirabilis. Leukocytosis POA, resolving. Nonketotic hyperglycemia. Dementia. Dehydration. Debility. PLAN: Discharged to [facility] today. Refer to medication reconciliation. This case was reviewed and discussed with my supervising physician and the above assessment and plan was formulated and agreed upon. ATTESTATION BY PHYSICIAN I have seen and examined the patient. I reviewed the documentation, medical decision making, and treatment plan as noted by the mid-level provider above. I agree with the findings and plan of care. MAX SOLIS MD, MIRTA L TALENT SOLUTIONS MANAGER May 18, 2024 17:30
== END 2024-05-18 18:25 | DRG 872 ==
LOC: EDH 02:59 → EDHIP 07:14 → 3AH 05-13 19:17
PROVIDERS: ADMIT Internal Medicine Infectious Disease; ATTEND Internal Medicine Infectious Disease
DX: A41.50 Gram-negative sepsis, unspecified (principal); N39.0 Urinary tract infection, site not specified; J96.10 Chronic respiratory failure, unspecified whether with hypoxia or hypercapnia; F03.90 Unspecified dementia, unspecified severity, without behavioral disturbance, psychotic disturbance, mood disturbance, and anxiety; E86.0 Dehydration; Z20.822 Contact with and (suspected) exposure to COVID-19; B96.4 Proteus (mirabilis) (morganii) as the cause of diseases classified elsewhere; E03.9 Hypothyroidism, unspecified; J44.9 Chronic obstructive pulmonary disease, unspecified; E78.5 Hyperlipidemia, unspecified; I10 Essential (primary) hypertension; Z74.01 Bed confinement status; Z82.49 Family history of ischemic heart disease and other diseases of the circulatory system; Z83.3 Family history of diabetes mellitus; Z85.3 Personal history of malignant neoplasm of breast; Z90.11 Acquired absence of right breast and nipple; Z99.81 Dependence on supplemental oxygen; Z79.899 Other long term (current) drug therapy; Z90.49 Acquired absence of other specified parts of digestive tract
CPT/HCPCS: 36415; 71045; 73600; 74176; 80048; 80076; 81001; 82550; 82948; 83036; 83605; 83690; 83735; 84484; 85025; 85027; 87040; 87086; 87186; 87426; 87804; 93005; 93971; 96374; 96375; 99285; G0378; J0360; J0692; J1815; J2185; J2405; J3475; J7030

== ENCOUNTER 2024-07-10 20:21 | Emergency (ER) | payer OTHER, MEDICARE ==
[~2024-07-10] VITALS: Ht 147.3 cm; Wt 76.7 kg
[~2024-07-10 20:21] MED LIST changes: -ASCO100031 PO; -AZIT500T2 PO; -CALC-1125 PO; -CEPH500B PO; -FAMO-136 PO; -GUAI1TBM19 PO; -LEVO88CA4 PO; +LEVO88CA5 PO; -ONDA-243 PO; -PRED20TA3 PO
--- NOTE | 2024-07-10 20:35 | ERN ---
ED Note History of Present Illness Stated Complaint: SORE THROAT, SOB, BACK PAIN Chief Complaint: Multiple Complaints Time Seen by MD: 20:23 Dictation: PATIENT IS A 74-YEAR-OLD FEMALE HERE WITH HER SON WITH MULTIPLE COMPLAINTS 1ST COMPLAINT IS SHE HAS BEEN HAVING A COUGH WITH SHORTNESS A BREATH MILD SINCE NOON TODAY. NO FEVER NO CHILLS NO PHLEGM. SHE ALSO STATES SHE HAS A SORE THROAT WITH BACK PAIN. SON STATES SHE SLEEPS ON HER RIGHT LATERAL LYING POSITION WITH HER LEGS OFF THE BED AND HAS BEEN DOING FOR MONTHS. NO CHEST PAIN NO BACK PAIN. SHE IS O2 DEPENDENT AT 2.5 L NASAL CANNULA CONTINUOUSLY Allergies: Coded Allergies: Penicillins (Unverified Allergy, Mild, RASH, 06/13/17) Home Meds Reported Medications Atorvastatin Calcium (Atorvastatin Calcium) 80 Mg Tablet, 80 MG PO HS, TAB 01/18/23 Fluticasone/Vilanterol (Breo Ellipta 200-25 Mcg INH) 200 Mcg-25 Mcg/Dose Blst.w.dev, 1 EACH IH DAILY 01/18/23 Sitagliptin Phosphate (Januvia) 100 Mg Tablet, 100 MG PO DAILY, TAB 08/26/22 Levothyroxine Sodium (Levothyroxine) 88 Mcg Capsule, 88 MCG PO ACBKFST, CAP 08/26/22 Olanzapine (Olanzapine) 10 Mg Tablet, 10 MG PO HS, TAB 08/26/22 Donepezil HCl (Donepezil HCl) 10 Mg Tablet, 10 MG PO HS, TAB 08/26/22 Ramipril (Ramipril) 2.5 Mg Capsule, 2.5 MG PO DAILY, CAP 08/26/22 Escitalopram Oxalate (Escitalopram Oxalate) 20 Mg Tablet, 20 MG PO DAILY, TAB 08/26/22 Past Medical History Past Medical History: Anxiety, Bipolar, Dementia, Diabetes-Type II, High Cholesterol, Hypertension Additional Past Medical Hx: HX OF OSTEROPOROSIS Surgical History: Cholecystectomy Surgical History Other: RT MASTECTOMY Family History: CAD, DM, HTN Social History: Negative, Lives with family History: Not Applicable RN Note Reviewed/Agreed w/PFSH: Yes Review of System Dictation NORMAL ROS CONSTITUTIONAL: NEGATIVE EXCEPT FOR HPI HEAD/FACE: NEGATIVE EXCEPT FOR HPI EENT: NEGATIVE EXCEPT FOR HPI SORE THROAT RESPIRATORY: NEGATIVE EXCEPT FOR HPI SOB/COUGH GASTROINTESTINAL/ABDOMINAL: NEGATIVE EXCEPT FOR HPI GENITOURINARY: NEGATIVE EXCEPT FOR HPI MUSCULOSKELETAL: NEGATIVE EXCEPT FOR HPI LOW BACK PAIN INTEGUMENTARY: NEGATIVE EXCEPT FOR HPI NEUROLOGICAL/PSYCH: NEGATIVE EXCEPT FOR HPI HEMATOLOGIC/LYMPHATIC: NEGATIVE EXCEPT FOR HPI ALL SYSTEMS NEGATIVE, EXCEPT NOTED ABOVE. 13 POINT REVIEW OF SYSTEMS ASSESSED AND ALL NEGATIVE EXCEPT FOR ABOVE. Initial Vital Sign VS Vital Signs Date Time Temp Pulse Resp B/P (MAP) Pulse Ox O2 Delivery O2 Flow Rate FiO2 07/10/24 20:23 97.2 80 20 156/44 98 Nasal Cannula 3.0 07/10/24 21:07 32 Physical Exam Dictation VITAL SIGNS REVIEWED GENERAL APPEARANCE: ALERT, ORIENTED X 3, NO ACUTE DISTRESS, WELL DEVELOPED, NOURISHED. OBESE APPEARS DECONDITIONED HEAD AND FACE: NON-TRAUMATIC. EYES: PERRL, PINK CONJUNCTIVAS, EYELID NO TRAUMA, ANTERIOR CHAMBER WITH ARCUS SENILIS. EARS: PINNAS INTACT AND NO SIGNS OF TRAUMA OR ERYTHEMA EAR CANALS CLEAR AND NO DISCHARGE TM NO ERYTHEMA NOSE: NO DISCHARGE, NO BLEEDING. OROPHARYNX: MOUTH NORMAL, TONGUE PINK, PHARYNX CLEAR, MILD PHARYNGEAL ERYTHEMA, TONSILS NO EXUDATES, NO ABSCESSES NOTE D, MUCOUS MEMBRANE MOIST UVULA MIDLINE, VOICE IS CLEAR NECK: SUPPLE, NON-TENDER, NO THYROMEGALY, NO MASSES, NO JVD, NO BRUITS BREAST:DEFERRED CHEST:NO TENDERNESS, NO CREPITUS, NO PARADOXICAL MOVEMENT, NO RETRACTIONS LUNGS:CLEAR, WELL-VENTILATED, SYMMETRIC, NO RALES, NO WHEEZING, NO RHONCHI, NO STRIDOR, GOOD BREATH SOUNDS BILATERALLY BILATERAL BREATH SOUNDS CLEAR TO AUSCULTATION NO TACHYPNEA NO ADVENTITIOUS BREATH SOUNDS HEART: REGULAR RATE, REGULAR RHYTHM, NO MURMUR, NO GALLOPS VASCULAR: NO PERIPHERAL EDEMA, ABDOMEN: SOFT, POSITIVE BOWEL SOUNDS, NONDISTENDED, NO GUARDING, NONTENDER, NO REBOUND, NO MASSES NO HEPATOMEGALY, NO SPLENOMEGALY, NO LYNN'S SIGN, NO HERNIAS. RECTAL: DEFERRED GENITAL: DEFERRED NEUROLOGICAL: NORMAL SPEECH, MOTOR FUNCTION INTACT, SENSORY FUNCTION INTACT MUSCULOSKELETAL: NECK NONTENDER, FULL RANGE OF MOTION, DIFFUSE LUMBOSACRAL TENDERNESS, NO MIDLINE SPINE PAIN OR STEP-OFF FULL RANGE OF MOTION, EXTREMITIES: NONTENDER, FULL RANGE OF MOTION SKIN: COLOR PINK, DRY, NO TURGOR, NO RASH, NO LACERATIONS, NO ABRASIONS, NO CONTUSIONS. LYMPHATIC: DEFERRED Results (Laboratory/Radiology) Laboratory/Radiology Laboratory Tests Test 07/10/24 21:06 Influenza Type A Antigen Negative For Type A Influenza Type B Antigen Negative For Type B SARS-CoV-2 Antigen (Rapid) PRESUMPTIVE NEGATIVE Group A Streptococcus Rapid negative (NEGATIVE) INDICATION: B/COUGH. HISTORY OF COPD AND OXYGEN DEPENDENT. COMPARISON: None FINDINGS: Right axillary surgical clips. Heart size is normal. The pulmonary vascularity and davin appear normal. No abnormal pulmonary parenchymal opacity or consolidation identified. No significant pleural effusion noted. No pneumothorax detected. IMPRESSION: No radiographic evidence for any acute cardiopulmonary process. Labs Reviewed?: Yes ED Course ED Course Orders Procedure Category Date Status Time Covid19 (Sars Antigen LAB 07/10/24 Complete Rapid) 20:30 Rapid (Group A Strep) LAB 07/10/24 Complete 20:30 Influenza Type A & B, LAB 07/10/24 Complete Rapid 20:30 Dexamethasone 4mg/Ml PHA 07/10/24 Complete 1ml Vial (Dexametha 20:30 Chest 1vw RAD 07/10/24 Resulted 20:30 Ipratropium/Albuterol PHA 07/10/24 Complete Neb (Duoneb) 20:30 Acetaminophen 500mg PHA 07/10/24 Complete Tab (Tylenol 500mg T 20:30 Azithromycin PHA 07/10/24 Verified (Zithromax) 22:00 Current Medications Medications (Trade) Dose Ordered Sig/Ge Route PRN Reason Start Time Stop Time Status Last Admin Dose Admin Acetaminophen (TYLenol 500MG TAB) 1,000 mg ONCE ONCE PO 07/10/24 20:30 07/10/24 20:33 DC 07/10/24 20:56 Albuterol (DUOneb) 1 udvial ONCE ONCE IH 07/10/24 20:30 07/10/24 20:33 DC 07/10/24 20:52 Dexamethasone Sodium Phosphate (dexaMETHasone 4MG/ML 1ML VIAL) 8 mg ONCE ONCE IM 07/10/24 20:30 07/10/24 20:33 DC 07/10/24 21:06 Vital Signs Date Time Temp Pulse Resp B/P (MAP) Pulse Ox O2 Delivery O2 Flow Rate FiO2 07/10/24 21:07 79 18 129/54 98 Nasal Cannula* 3 32 07/10/24 20:52 72 18 07/10/24 20:23 97.2 80 20 156/44 98 Nasal Cannula 3.0 2150/CHEST X-RAY CLEAR LABS ARE WITH A NORMAL LIMITS AND SWABS NEGATIVE. SIDNEY Lyn STATES SHE FEELS BETTER AFTER TREATMENT. PATIENT WILL BE TREATED EMPIRICALLY FOR ACUTE PHARYNGITIS UNSPECIFIED WITH THE AZITHROMYCIN DISCHARGED TO SOME TO SEE HER DOCTOR IN 1-2 DAYS Medical Decision Making MDM MEDICAL DECISION-MAKING WAS BASED ON SWABS FOR FLU COVID AND STREP PATIENT GIVEN DUONEB AND DECADRON FOR HER COPD EXACERBATION CHEST X-RAY CLEAR BILATERAL BREATH SOUNDS CLEAR PATIENT TREATED EMPIRICALLY FOR ACUTE PHARYNGITIS UNSPECIFIED DISCHARGED HOME WITH COPD TREATMENT AND PAIN MEDS FOR HER BACK. DX & DISP Disposition: Discharge Departure Impression: Primary Impression: COPD exacerbation Additional Impressions: Supplemental oxygen dependent, Acute pharyngitis, unspecified, Acute lumbar back pain Condition: Stable Scripts Azithromycin (Zithromax Tri-Nolberto) 500 Mg Tablet 500 MG PO DAILY for 5 Days, #5 TAB Prov: FRANSICO GUTIERREZ NP 07/10/24 Methylprednisolone (Medrol) 4 Mg Tab.ds.pk 1 TAB PO AD for 6 Days, #21 TAB 0 Refills 6 on day 1 then reduce by one tablet daily until gone Prov: FRANSICO GUTIERREZ NP 07/10/24 Ibuprofen (Ibuprofen 800 mg Tab) 800 Mg Tab 800 MG PO Q8H PRN for fever or pain, #30 TAB 0 Refills Prov: FRANSICO GUTIERREZ NP 07/10/24 Additional Instructions: FOLLOW-UP WITH PRIMARY CARE PROVIDER IN 1 TO 2 DAYS. TAKE MEDICATIONS DIRECTED HERE IN THE EMERGENCY ROOM. OKAY TO CONTINUE HOME MEDICATIONS UNLESS OTHERWISE DISCUSSED DURING YOUR VISIT IN THE EMERGENCY ROOM TODAY. RETURN TO YOUR NEAREST EMERGENCY ROOM IF SYMPTOMS WORSEN OR IF THERE IS NO IMPROVEMENT. CALL 911 IF YOU NEED IMMEDIATE ASSISTANCE. TAKE TYLENOL OR MOTRIN [id number] NEEDED AND IF NO CONTRAINDICATIONS ARE PRESENT. INCREASE ORAL HYDRATION. A WOUND CULTURE OR URINE CULTURE WAS ORDERED HERE IN THE EMERGENCY ROOM DEPARTMENT PLEASE FOLLOW-UP WITH PRIMARY CARE PROVIDER AND ADVISE THEM TO GET REPEAT PORTS FROM OUR FACILITY. IF YOU HAD ANY PHIL WRAP/SPLINTS THAT WERE APPLIED HERE, PLEASE DO NOT REMOVE THEM UNTIL YOU SEE YOUR PRIMARY CARE OR SPECIALTY. TAKE IBUPROFEN NEEDED FOR BACK PAIN. CONTINUE YOUR NEBULIZER AT HOME AND TAKE AZITHROMYCIN DIRECTED UNTIL GONE. TAKE MEDROL DOSEPAK DIRECTED UNTIL GONE. PATIENT'S SON TO BE EXCUSED FROM WORK UNTIL CLEARED BACK BY HIS DOCTOR Referrals: ARTURO PEREZ MD (PCP) Time of Disposition: 21:50 I have reviewed the case, and I agree with, Diagnosis and Plan FRANSIOC GUTIERREZ NP Jul 10, 2024 20:34
[2024-07-10 20:52] VITALS: PULSE 72; RESP 18
[2024-07-10] MEDS: IpraTROPium/alBUTERol SULFATE 3 ML SOLUTION IH ONE (20:52)
[2024-07-10] MEDS: acetaMINOPHEN 500 MG TABLET PO ONE (20:56)
[2024-07-10] MEDS: dexaMETHasone SOD PHOSPHATE 4 MG/ML 1ML VIAL IM ONE (21:06)
--- NOTE | 2024-07-10 21:20 | HMCIMG ---
PORTABLE CHEST RADIOGRAPH INDICATION: B/COUGH. HISTORY OF COPD AND OXYGEN DEPENDENT. COMPARISON: None FINDINGS: Right axillary surgical clips. Heart size is normal. The pulmonary vascularity and davin appear normal. No abnormal pulmonary parenchymal opacity or consolidation identified. No significant pleural effusion noted. No pneumothorax detected. IMPRESSION: No radiographic evidence for any acute cardiopulmonary process.
[2024-07-10 21:21] LABS: RAPID GROUP A STREP negative (NEGATIVE)
[2024-07-10 21:31] LABS: COVID19 (SARS ANTIGEN RAPID) PRESUMPTIVE NEGATIVE (NEGATIVE)
[2024-07-10 21:32] LABS: INFLUENZA TYPE A Negative For Type A (NEGATIVE); INFLUENZA TYPE B Negative For Type B (NEGATIVE)
[2024-07-10] MEDS ORDERED: IBUP-2077 PO (21:52)
[2024-07-10] MEDS ORDERED: METH4TAB3 PO (21:52)
[2024-07-10] MEDS ORDERED: AZIT500T2 PO (21:52)
[2024-07-10] MEDS: AZITHROMYCIN 250 MG TABLET PO ONE (22:21)
[2024-07-10 22:28] VITALS: BP 140/49; PULSE 76; RESP 18; TEMP 98.3; O2SAT 96
== END 2024-07-10 22:29 | disposition home or self-care (01) ==
LOC: EDH 20:21
DX: J44.1 Chronic obstructive pulmonary disease with (acute) exacerbation (principal); J02.9 Acute pharyngitis, unspecified; M54.50 Low back pain, unspecified; E11.9 Type 2 diabetes mellitus without complications; E78.00 Pure hypercholesterolemia, unspecified; F03.93 Unspecified dementia, unspecified severity, with mood disturbance; F31.9 Bipolar disorder, unspecified; I10 Essential (primary) hypertension; Z20.822 Contact with and (suspected) exposure to COVID-19; Z79.51 Long term (current) use of inhaled steroids; Z79.84 Long term (current) use of oral hypoglycemic drugs; Z79.899 Other long term (current) drug therapy; Z88.0 Allergy status to penicillin; Z90.49 Acquired absence of other specified parts of digestive tract; Z99.81 Dependence on supplemental oxygen
CPT/HCPCS: 99284; 71045; 87426; 87880; 87804 ×2; 96372; 94640; J1100

== ENCOUNTER 2024-08-14 23:08 | Emergency (ER) | payer OTHER, MEDICAID ==
[~2024-08-14] VITALS: Ht 152.4 cm; Wt 72.6 kg
[~2024-08-14 23:08] MED LIST changes: +AZIT500T2 PO; +IBUP-2077 PO; +METH4TAB3 PO
[2024-08-14] MEDS: Solu-medROL 125MG VIAL IVP ONE (23:46)
[2024-08-14 23:48] LABS: BASOPHILS # (AUTO) 0.05 K/uL (0.00-0.20); BASOPHILS % (AUTO) 0.3 % (0.0-5.0); EOSINOPHILS # (AUTO) 0.11 K/uL (0.00-0.70); EOSINOPHILS % (AUTO) 0.7 % (0.0-8.0); HEMATOCRIT 35.1 % (36-48); IMMATURE GRANULOCYTE ABSOLUTE 0.18 K/uL (0-1); MEAN CORPUSCULAR VOLUME 87.8 fL (79-99); MONOCYTES # (AUTO) 1.2 K/uL (0.1-1.0); MONOCYTES % (AUTO) 8.3 % (3.0-13.0); NEUTROPHILS # (AUTO) 11.5 K/uL (1.8-7.7); NEUTROPHILS % (AUTO) 76.5 % (40.0-77.0); PLATELET COUNT (AUTO) 242 K/uL (130-400)
--- NOTE | 2024-08-14 23:56 | ERN ---
ED Note History of Present Illness Stated Complaint: COVID + Chief Complaint: Other Problems Time Seen by MD: 23:11 Dictation: This is a 74-year-old female who presented to the emergency room with multiple complaints-apparently she was diagnosed with COVID at her PCP's office. She was started on Paxlovid. She complains of dryness in the mouth having to keep swallowing. No fever chills or rigors no dysphagia no drooling. No sore throat. Temperature 97.5 pulse 84 respirations 16 blood pressure is 167/57 pulse oximetry 97% on room air Chronic medical problems include anxiety, bipolar depression, dementia, depression, diabetes mellitus, hypertension, hypercholesterolemia, COPD on home O2 at 2.5 L via nasal cannula she also gives a history of right mastectomy Allergies: Coded Allergies: Penicillins (Unverified Allergy, Mild, RASH, 06/13/17) Home Meds Active Scripts Azithromycin (Zithromax Tri-Nolberto) 500 Mg Tablet, 500 MG PO DAILY for 5 Days, #5 TAB Prov:FRANSICO GUTIERREZ NP 07/10/24 Methylprednisolone (Medrol) 4 Mg Tab.ds.pk, 1 TAB PO AD for 6 Days, #21 TAB 0 Refills 6 on day 1 then reduce by one tablet daily until gone Prov:FRANSICO GUTIERREZ NP 07/10/24 Ibuprofen (Ibuprofen 800 mg Tab) 800 Mg Tab, 800 MG PO Q8H PRN for fever or pain, #30 TAB 0 Refills Prov:FRANSICO GUTIERREZ NP 07/10/24 Reported Medications Atorvastatin Calcium (Atorvastatin Calcium) 80 Mg Tablet, 80 MG PO HS, TAB 01/18/23 Fluticasone/Vilanterol (Breo Ellipta 200-25 Mcg INH) 200 Mcg-25 Mcg/Dose Blst.w.dev, 1 EACH IH DAILY 01/18/23 Sitagliptin Phosphate (Januvia) 100 Mg Tablet, 100 MG PO DAILY, TAB 08/26/22 Levothyroxine Sodium (Levothyroxine) 88 Mcg Capsule, 88 MCG PO ACBKFST, CAP 08/26/22 Olanzapine (Olanzapine) 10 Mg Tablet, 10 MG PO HS, TAB 08/26/22 Donepezil HCl (Donepezil HCl) 10 Mg Tablet, 10 MG PO HS, TAB 08/26/22 Ramipril (Ramipril) 2.5 Mg Capsule, 2.5 MG PO DAILY, CAP 08/26/22 Escitalopram Oxalate (Escitalopram Oxalate) 20 Mg Tablet, 20 MG PO DAILY, TAB 08/26/22 Past Medical History Past Medical History: Anxiety, Bipolar, COPD, Dementia, Depression, Diabetes- Type II, High Cholesterol, Hypertension Additional Past Medical Hx: HX OF OSTEROPOROSIS Surgical History: Cholecystectomy Surgical History Other: RT MASTECTOMY Family History: CAD, DM, HTN Social History: Negative, Lives with family History: Not Applicable RN Note Reviewed/Agreed w/PFSH: Yes Review of System Dictation Constitutional: Negative for fever,chills, and weight loss Eyes: Negative for injury, pain,redness, and discharge ENT: Negative for injury,pain or swelling Cardiovascular: Negative for chest pain, palpitations, and edema Respiratory: Negative for shortness of breath, cough, and wheezing, Abdomen/GI: Negative for abdominal pain, nausea, vomiting, diarrhea, and constipation Back: Negative for injury and pain : Negative for injury, bleeding and discharge MS/Extremity: Negative for injury and deformity Skin: Negative for rash, and discoloration Neuro: Negative for headache, weakness, numbness, tingling, and seizure Psych: Negative for suicide ideation, homicidal ideation, and hallucinations Initial Vital Sign VS Vital Signs Date Time Temp Pulse Resp B/P (MAP) Pulse Ox O2 Delivery O2 Flow Rate FiO2 08/14/24 23:09 97.5 84 16 167/57 97 Nasal Cannula 2.0 08/14/24 23:26 28 Physical Exam Dictation General: awake, alert, NAD Head/Face: Normocephalic, atraumatic Eyes: PERRL, EOMI, vision at baseline ENT: oral cavity clear, TMs clear, no signs of infection Neck: Trachea midline, supple, no nuchal rigidity Cardiovascular: RRR, normal S1/S2, No MRGs, no JVD Respiratory: CTAB, no respiratory distress, No rales or wheezes Abdomen: Soft, non-tender, non-distended, normal bowel sounds, no guarding or rebound. Skin: Warm, dry, normal turgor, no rash MS/Extremity: Pulses equal, no cyanosis, neurovascular intact, FROM Neuro: COAx4, GCS 15, strength 5/5, CN 2-12 intact, normal cerebellar exam, normal gait, Psych: Normal behavior, mood, and affect normal Extremities-trace edema without any palpable cords, Homans sign is negative Results (Laboratory/Radiology) Laboratory/Radiology Laboratory Tests Test 08/14/24 23:41 08/15/24 00:10 White Blood Count 15.0 K/uL (4.8-10.8) H Red Blood Count 4.00 MIL/uL (4.00-5.50) Hemoglobin 11.6 g/dL (12.0-16.0) L Hematocrit 35.1 % (36-48) L Mean Corpuscular Volume 87.8 fL (79-99) Mean Corpuscular Hemoglobin 29.0 pg (27.0-33.0) Mean Corpuscular Hemoglobin Concent 33.0 g/dL (32.0-36.0) Red Cell Distribution Width 13.0 % (11.0-15.5) Platelet Count 242 K/uL (130-400) Mean Platelet Volume 9.9 fL (7.5-10.5) Immature Granulocyte % (Auto) 1.2 % (0-1) H Neutrophils (%) (Auto) 76.5 % (40.0-77.0) Lymphocytes (%) (Auto) 13.0 % (21.0-51.0) L Monocytes (%) (Auto) 8.3 % (3.0-13.0) Eosinophils (%) (Auto) 0.7 % (0.0-8.0) Basophils (%) (Auto) 0.3 % (0.0-5.0) Neutrophils # (Auto) 11.5 K/uL (1.8-7.7) H Lymphocytes # (Auto) 2.0 K/uL (1.0-4.8) Monocytes # (Auto) 1.2 K/uL (0.1-1.0) H Eosinophils # (Auto) 0.11 K/uL (0.00-0.70) Basophils # (Auto) 0.05 K/uL (0.00-0.20) Absolute Immature Granulocyte (auto 0.18 K/uL (0-1) Nucleated Red Blood Cells 0.0 % (0.0-0.19) Sodium Level 126 mmol/L (136-145) L Potassium Level 4.5 mmol/L (3.5-5.1) Chloride Level 90 mmol/L (101-111) *L Carbon Dioxide Level 27 mmol/L (21-32) Blood Urea Nitrogen 27 mg/dL (7-18) H Creatinine 1.0 mg/dL (0.5-1.0) Glomerular Filtration Rate Calc 59 mL/min (>90) Random Glucose 377 mg/dL (70-105) H Total Calcium 8.4 mg/dL (8.5-10.1) L B-Type Natriuretic Peptide 28 pg/mL (0-100) Blood Gas Specimen Type Arterial Arterial Blood pH 7.408 (7.350-7.450) Arterial Blood Partial Pressure CO2 38 mmHg (32-45) Arterial Blood Partial Pressure O2 86.9 mmHg (83.0-108.0) Arterial Blood HCO3 23.6 mmol/L (21.0-28.0) Arterial Blood Oxygen Saturation 96.7 % (94.0-98.0) Arterial Blood Base Excess -0.8 mmol/L (-2.0-3.0) Blood Gas Temperature 37.0 CELSIUS (35.5-37.0) Blood Gas Flow-by 2.00 L/min (0.00-15.00) Blood Gas Vent Mode NC (ROOM AIR) FiO2 28.0 % Blood Gas PEEP 5 cm H2O Blood Gas Specimen Comment LR, RN Labs Reviewed?: Yes EKG Comment: Lead EKG done on 08/14/2024 at 11:56 p.m. showed a heart rate of 70, DC interval 176, QRS duration 93, QT/QTC 425/457. Impression normal sinus rhythm with a no acute STT wave changes noted. Low voltage in the septal leads EKG rhythm strip normal sinus rhythm with no acute STT wave changes noted Interpreted by ER MD Dr. Gonzalez ED Course ED Course Orders Procedure Category Date Status Time Cbc With Differential LAB 08/14/24 Complete 23:26 B-Type Natriuretic LAB 08/14/24 Complete Peptide 23:26 Chest 1vw RAD 08/14/24 Taken 23:26 12 Lead Ekg Tracing- EKG 08/14/24 Complete Technical 23:26 Ipratropium/Albuterol PHA 08/14/24 Complete Neb (Duoneb) 23:30 Methylprednisolone PHA 08/14/24 Complete Succ 125mg (Solu-Medr 23:30 Basic Metabolic Panel LAB 08/14/24 Complete 23:26 Arterial Blood Gas RT 08/14/24 Transmitted 23:26 Arterial Blood Gas LAB 08/15/24 Complete 00:10 0.9%Nacl 1000ml (Ns PHA 08/15/24 Complete 1000ml) 01:00 Current Medications Medications (Trade) Dose Ordered Sig/Ge Route PRN Reason Start Time Stop Time Status Last Admin Dose Admin Albuterol (DUOneb) 1 udvial ONCE ONCE IH 08/14/24 23:30 08/14/24 23:31 DC 08/15/24 00:28 Methylprednisolone Sodium Succinate (Solu-medROL 125MG) 125 mg ONCE ONCE IVP 08/14/24 23:30 08/14/24 23:31 DC 08/14/24 23:46 Sodium Chloride 1,000 ml @ 0 mls/hr ONCE ONCE IV 08/15/24 01:00 08/15/24 01:01 DC 08/15/24 00:58 Vital Signs Date Time Temp Pulse Resp B/P (MAP) Pulse Ox O2 Delivery O2 Flow Rate FiO2 08/15/24 00:30 67 20 08/14/24 23:26 97.5 72 18 159/55 98 Nasal Cannula* 2 28 08/14/24 23:09 97.5 84 16 167/57 97 Nasal Cannula 2.0 We will perform diagnostic labs, advanced imaging and administer medications acc ording to the patient's complaint. Once the results are available, will review and personally interpreted the labs to rule out any acute life-threatening emergency the trach require immediate intervention and treatment. I will then re-evaluate the patient after treatment and diagnostic exams have return to determine whether the patient requires any further testing, can safely be discharged home or need further admission to hospital for additional treatment and evaluation. Labs reviewed CBC showed a WBC count of 15. BNP 7 is significant for a sodium of 126 chloride 90 BUN and creatinine are 27 and 1.0 with a glucose of 377. Hydration and a small dose of insulin I updated the patient and son that likely the mouth and throat dryness is from dehydration and they verbalized full understanding. It could also be a side effect from the Paxlovid with a metallic taste in her mouth. They would like to be discharged to home and to follow up with the primary care physician after the IV fluids Medical Decision Making MDM MDM: Differential diagnosis: Thrush, dryness of the oral cavity, adverse effect of Paxlovid, dehydration Rationale: Tests considered and ordered secondary to shared decision making include: Previous outside records reviewed: Old ER visits. Risk of complication and/or morbidity or mortality of patient management: None Medications-Per medication reconciliation Need for hospitalization: Patient does not meet criteria for hospitalization. Need for emergency major/minor surgery: No There are no social concerns with this patient. Prescription drug management Prescriptions will include symptomatic care Patient's prior external medical records from other ER visits were reviewed by me as indicated. Prior testing and results from previous visits were reviewed. Prior tests were taken into account with medical decision making and resource utilization, independent historian/historians were used to obtain complete medical history. I independently interpreted the test that were performed, results were reviewed by me and considered findings on radiology if ordered. Medical management and examination interpretation discussions were had by me with other qualified healthcare professionals as indicated for the patient's care. Problem List Problem List: (1) Xerostomia due to dehydration (2) Xerostomia due to hyperglycemia (3) COVID-19 (4) Diabetes type 2, uncontrolled (5) Hyponatremia (6) Hypochloremia DX & DISP Disposition: Discharge Departure Impression: Primary Impression: Xerostomia due to dehydration Additional Impressions: Xerostomia due to hyperglycemia, Hyponatremia, Hypochloremia, Uncontrolled diabetes mellitus with hyperglycemia, COVID-19 Condition: Stable Additional Instructions: Patient and the caregiver have been informed of all the diagnostic tests and the imaging conducted during the today's visit to the emergency room and has verbalized understanding of the results I have personally reviewed and interpreted all diagnostic exams performed here in the ER today as well as the vital signs documented by the nursing staff. The patient is now being discharged to home and should follow up with the primary care physician or the specialist as directed by the ER staff. Follow-up with primary care provider in 1 to 2 days. Take medications as dir ected here in the emergency room. Okay to continue home medications unless otherwise discussed during your visit in the emergency room today. Return to your nearest emergency room if symptoms worsen or if there is no improvement. Call 911 if you need immediate assistance. Take Tylenol or Motrin [id number] as needed and if no contraindications are present. Increase oral hydration. A wound culture or urine culture was ordered here in the emergency room department please follow-up with primary care provider and advise them to get repeat ports from our facility. If you had any Sachin wrap/splints that were applied here, please do not remove them until you see your primary care or specialty. Referrals: ARTURO PEREZ MD (PCP) NEELIMA GONZALEZ MD August 14, 2024 23:56
--- NOTE | 2024-08-14 23:58 | EKG ---
[facility] Test Date: 2024-08-14 Test Time: 23:56:42 Pat Name: GAURAV KOCH Department: [facility] Room: Gender: F [address] Bailiff: [phone] : 1950 Requested By: NEELIMA BECKER Order Number: [id number] Reading MD: Corinne Sharif Measurements Intervals [place] Rate: 70 P: 52 [place]: 176 QRS: -42 QRSD: 93 T: 69 QT: 425 QTc: 457 Interpretive Statements Sinus rhythm Left axis deviation Compared to ECG 05/12/2024 03:07:01 Left-axis deviation now present Sinus tachycardia no longer present Myocardial infarct finding no longer present Electronically Signed On 08-16-2024 14:22:20 CDT by Corinne Sharif Please click the below link to view image of tracing.
[2024-08-15 00:10] LABS: POTASSIUM 4.5 mmol/L (3.5-5.1)
[2024-08-15 00:11] LABS: ABG BASE EXCESS -0.8 mmol/L (-2.0-3.0); ABG HCO3 23.6 mmol/L (21.0-28.0); ABG OXYGEN SATURATION 96.7 % (94.0-98.0); ABG PCO2 38 mmHg (32-45); ABG PH 7.408 (7.350-7.450); PO2, ARTERIAL BG 86.9 mmHg (83.0-108.0); VENT MODE, BG NC (ROOM AIR)
[2024-08-15] MEDS: IpraTROPium/alBUTERol SULFATE 3 ML SOLUTION IH ONE (00:28)
[2024-08-15 00:30] VITALS: PULSE 67; RESP 20
[2024-08-15 00:30] LABS: B-TYPE NATRIURETIC PEPTIDE 28 pg/mL (0-100)
[2024-08-15] MEDS: 0.9%NACL 1000ML 1,000 ML IV ONE (00:58)
[2024-08-15] MEDS ORDERED: INSULIN humuLIN R 100 UNIT/ML 3ML SQ ONE ×2 (02:00→03:00)
[2024-08-15] MEDS ORDERED: INSULIN humuLIN R 100 UNIT/ML 3ML IV ONE (03:00)
[2024-08-15] MEDS: INSULIN humuLIN R 100 UNIT/ML 3ML IV ONE (03:21)
--- NOTE | 2024-08-15 03:52 | NUR ---
BEDSIDE SUGAR RETAKEN AFTER INSULIN GIVEN. 389 RECORDED. PT'S SON REPORTED PT IS DUE FOR THEIR HOME MEDICATION FOR DIABETES. ED MD MADE AWARE OF BLOOD SUGAR AT THIS TIME. PENDING DISCHARGE ORDERS.
[2024-08-15 04:00] VITALS: BP 156/51; PULSE 75; RESP 16; TEMP 98; O2SAT 99
--- NOTE | 2024-08-15 08:15 | HMCIMG ---
PORTABLE CHEST RADIOGRAPH INDICATION: Dyspnea/SOB COMPARISON: 07/10/2024 FINDINGS: Heart size is normal. The pulmonary vascularity and davin appear normal. No abnormal pulmonary parenchymal opacity or consolidation identified. No significant pleural effusion noted. No pneumothorax detected. Right axillary surgical clips. IMPRESSION: No radiographic evidence for any acute cardiopulmonary process.
== END 2024-08-15 04:02 | disposition home or self-care (01) ==
LOC: EDH 23:08
DX: E86.0 Dehydration (principal); K11.7 Disturbances of salivary secretion; E11.65 Type 2 diabetes mellitus with hyperglycemia; E78.00 Pure hypercholesterolemia, unspecified; E87.1 Hypo-osmolality and hyponatremia; F03.93 Unspecified dementia, unspecified severity, with mood disturbance; U07.1 COVID-19; F31.9 Bipolar disorder, unspecified; I10 Essential (primary) hypertension; J44.9 Chronic obstructive pulmonary disease, unspecified; Z79.51 Long term (current) use of inhaled steroids; Z79.84 Long term (current) use of oral hypoglycemic drugs; Z79.899 Other long term (current) drug therapy; Z88.0 Allergy status to penicillin; Z90.49 Acquired absence of other specified parts of digestive tract
CPT/HCPCS: 99285; 96374; 71045; 96361; 96375; 80048; 82803; 83880; 85025; 82948 ×2; 36415; 93005; 36600; 94640; J2919; J7030; J1815

== ENCOUNTER 2024-09-03 19:27 | Emergency (ER) | payer OTHER, MEDICAID ==
[~2024-09-03] VITALS: Ht 149.9 cm; Wt 77.6 kg
--- NOTE | 2024-09-03 20:06 | NUR ---
PATIENT REPORTS WEAKNESS FEVER AND CHILLS ONSET LAST NIGHT
[2024-09-03 20:40] LABS: BASOPHILS # (AUTO) 0.05 K/uL (0.00-0.20); BASOPHILS % (AUTO) 0.4 % (0.0-5.0); EOSINOPHILS # (AUTO) 0.33 K/uL (0.00-0.70); EOSINOPHILS % (AUTO) 2.6 % (0.0-8.0); HEMATOCRIT 35.5 % (36-48); IMMATURE GRANULOCYTE ABSOLUTE 0.13 K/uL (0-1); LYMPHOCYTES # (AUTO) 2.2 K/uL (1.0-4.8); LYMPHOCYTES % (AUTO) 16.8 % (21.0-51.0); MEAN CORPUSCULAR HEMOGLOBIN 29.3 pg (27.0-33.0); MEAN CORPUSCULAR VOLUME 88.8 fL (79-99); MONOCYTES # (AUTO) 1.1 K/uL (0.1-1.0); MONOCYTES % (AUTO) 8.8 % (3.0-13.0); NEUTROPHILS % (AUTO) 70.4 % (40.0-77.0); PLATELET COUNT (AUTO) 259 K/uL (130-400); RED CELL DISTRIBUTION WIDTH 13.1 % (11.0-15.5); WHITE BLOOD COUNT (AUTO) 12.8 K/uL (4.8-10.8)
[2024-09-03 20:52] LABS: CREATININE 1.5 mg/dL (0.5-1.0)
[2024-09-03] MEDS: LACTATED RINGERS 1000ML IV STA (22:05)
[2024-09-03 23:54] LABS: APPEARANCE,URINE CLOUDY (CLEAR); BILIRUBIN,URINE NEGATIVE (NEGATIVE); COLOR,URINE YELLOW (YELLOW); GLUCOSE, URINE (UA) 70 mg/dL (NEGATIVE); KETONES,URINE NEGATIVE (NEGATIVE); LEUKOCYTE ESTERASE ,URINE 500 Leu/uL (NEGATIVE); NITRATE,URINE NEGATIVE (NEGATIVE); OCCULT BLOOD,URINE SMALL (NEGATIVE); PH,URINE 5.5 (5.0-8.0); PROTEIN,URINE NEGATIVE (NEGATIVE); UROBILINOGEN,URINE 0.2 mg/dL (0.2-1.0)
[2024-09-04 00:05] LABS: ADD UA MICROSCOPIC YES
[2024-09-04 00:11] LABS: BACTERIA,URINE MANY /HPF (None Seen); CALCIUM OXALATE CRYSTALS,UR RARE /LPF (None Seen); SQUAMOUS EPITHELIAL CELL,UR RARE /HPF (0-2); WBC CLUMP FEW /HPF (0-1); WBC,URINE 51-100 /HPF (0-1)
[2024-09-04] MEDS ORDERED: NITR100C4 PO (00:31)
--- NOTE | 2024-09-04 00:31 | ERN ---
General Chief Complaint: Other Problems Stated Complaint: UTI,FEVER,SHAKING Time Seen by MD: 19:55 History of Present Illness Initial Comments Who comes in with a symptoms of a urinary tract infection just like previous ones. Allergies: Coded Allergies: Penicillins (Unverified Allergy, Mild, RASH, 06/13/17) Home Meds Active Scripts Azithromycin (Zithromax Tri-Nolberto) 500 Mg Tablet, 500 MG PO DAILY for 5 Days, #5 TAB Prov:FRANSICO GUTIERREZ INSPECTOR MISSILE 07/10/24 Methylprednisolone (Medrol) 4 Mg Tab.ds.pk, 1 TAB PO AD for 6 Days, #21 TAB 0 Refills 6 on day 1 then reduce by one tablet daily until gone Prov:FRANSICO GUTIERREZ INSPECTOR MISSILE 07/10/24 Ibuprofen (Ibuprofen 800 mg Tab) 800 Mg Tab, 800 MG PO Q8H PRN for fever or pain, #30 TAB 0 Refills Prov:FRANSICO GUTIERREZ INSPECTOR MISSILE 07/10/24 Reported Medications Atorvastatin Calcium (Atorvastatin Calcium) 80 Mg Tablet, 80 MG PO HS, TAB 01/18/23 Fluticasone/Vilanterol (Breo Ellipta 200-25 Mcg INH) 200 Mcg-25 Mcg/Dose Blst.w.dev, 1 EACH IH DAILY 01/18/23 Sitagliptin Phosphate (Januvia) 100 Mg Tablet, 100 MG PO DAILY, TAB 08/26/22 Levothyroxine Sodium (Levothyroxine) 88 Mcg Capsule, 88 MCG PO ACBKFST, CAP 08/26/22 Olanzapine (Olanzapine) 10 Mg Tablet, 10 MG PO HS, TAB 08/26/22 Donepezil HCl (Donepezil HCl) 10 Mg Tablet, 10 MG PO HS, TAB 08/26/22 Ramipril (Ramipril) 2.5 Mg Capsule, 2.5 MG PO DAILY, CAP 08/26/22 Escitalopram Oxalate (Escitalopram Oxalate) 20 Mg Tablet, 20 MG PO DAILY, TAB 08/26/22 Past Medical History Past Medical History: Anxiety, Bipolar, COPD, Dementia, Diabetes-Type II, High Cholesterol, Hypertension, Other Medical History Other: THYROID DISEASE Past Surgical History: Cholecystectomy, Other Surgical History Other: MASTECTOMY RIGHT Family History Family History: CAD, DM, HTN Social History Social History: Negative, Lives with family Female( History) History: Not Applicable Constitutional: (+) chills, (+) fever EENTM: (-) eye pain, (-) blurred vision, (-) tearing, (-) double vision, (-) ear pain, (-) ear discharge, (-) nose pain, (-) nose congestion, (-) throat pain, (-) Throat swelling, (-) mouth pain, (-) tooth pain, (-) mouth swelling, (-) other documentation Respiratory: (-) cough, (-) orthopnea, (-) short of breath, (-) stridor, (-) wheezing, (-) other documentation Cardiovascular: (-) chest pain, (-) edema, (-) palpitations, (-) syncope, (-) dyspnea on exertion, (-) other documentation Gastrointestinal/Abdominal: (+) nausea; (-) vomiting, (-) diarrhea, (-) abdominal pain, (-) abdominal distention, (-) constipation, (-) rectal bleeding, (-) dark stool/melena, (-) other documentation Genitourinary: (+) dysuria Physical Exam General Appearance: (+) no apparent distress Orientation: (+) alert Eye: bilateral eye normal inspection, bilateral eye PERRL, bilateral eye EOMI Ear, Nose, Throat: (+) hearing grossly normal, (+) normal ENT inspection, (+) moist mucous membraine Neck: (+) normal inspection, (+) supple Respiratory: (+) chest non-tender, (+) lungs clear Heart: (+) regular Gastrointestinal: (+) soft, (+) non-tender Results Laboratory and Microbiology Lab and Micro Result Laboratory Tests Test 09/03/24 20:30 09/03/24 23:33 White Blood Count 12.8 K/uL (4.8-10.8) H Red Blood Count 4.00 MIL/uL (4.00-5.50) Hemoglobin 11.7 g/dL (12.0-16.0) L Hematocrit 35.5 % (36-48) L Mean Corpuscular Volume 88.8 fL (79-99) Mean Corpuscular Hemoglobin 29.3 pg (27.0-33.0) Mean Corpuscular Hemoglobin Concent 33.0 g/dL (32.0-36.0) Red Cell Distribution Width 13.1 % (11.0-15.5) Platelet Count 259 K/uL (130-400) Mean Platelet Volume 9.8 fL (7.5-10.5) Immature Granulocyte % (Auto) 1.0 % (0-1) Neutrophils (%) (Auto) 70.4 % (40.0-77.0) Lymphocytes (%) (Auto) 16.8 % (21.0-51.0) L Monocytes (%) (Auto) 8.8 % (3.0-13.0) Eosinophils (%) (Auto) 2.6 % (0.0-8.0) Basophils (%) (Auto) 0.4 % (0.0-5.0) Neutrophils # (Auto) 9.0 K/uL (1.8-7.7) H Lymphocytes # (Auto) 2.2 K/uL (1.0-4.8) Monocytes # (Auto) 1.1 K/uL (0.1-1.0) H Eosinophils # (Auto) 0.33 K/uL (0.00-0.70) Basophils # (Auto) 0.05 K/uL (0.00-0.20) Absolute Immature Granulocyte (auto 0.13 K/uL (0-1) Nucleated Red Blood Cells 0.0 % (0.0-0.19) Sodium Level 133 mmol/L (136-145) L Potassium Level 4.0 mmol/L (3.5-5.1) Chloride Level 96 mmol/L (101-111) L Carbon Dioxide Level 32 mmol/L (21-32) Blood Urea Nitrogen 26 mg/dL (7-18) H Creatinine 1.5 mg/dL (0.5-1.0) H Glomerular Filtration Rate Calc 37 mL/min (>90) Random Glucose 277 mg/dL (70-105) H Total Calcium 8.6 mg/dL (8.5-10.1) Urine Color YELLOW (YELLOW) Urine Appearance CLOUDY (CLEAR) H Urine pH 5.5 (5.0-8.0) Urine Specific [place] 1.007 (1.001-1.031) Urine Protein NEGATIVE mg/dL (NEGATIVE) Urine Glucose (UA) 70 mg/dL (NEGATIVE) H Urine Ketones NEGATIVE mg/dL (NEGATIVE) Urine Occult Blood SMALL (NEGATIVE) H Urine Nitrate NEGATIVE (NEGATIVE) Urine Bilirubin NEGATIVE mg/dL (NEGATIVE) Urine Urobilinogen 0.2 mg/dL (0.2-1.0) Urine Leukocyte Esterase 500 Kathy/uL (NEGATIVE) H Urine RBC 6-10 /HPF (0-1) H Urine WBC 51-100 /HPF (0-1) H Urine WBC Clumps (Auto) FEW /HPF (0-1) Urine Squamous Epithelial Cells RARE /HPF (0-2) Urine Calcium Oxalate Crystals RARE /LPF (None Seen) Urine Amorphous Crystals (Auto) RARE /LPF (None Seen) Urine Bacteria MANY /HPF (None Seen) MDM Patient's CBC shows a white cell count with a left shift. Chemistry panel is normal. She does have a UTI. I will discharge her home on nitrofurantoin as she is allergic to penicillin. ED Course Orders Procedure Category Date Status Time Urinalysis Profile LAB 09/03/24 Complete 20:02 Cbc With Differential LAB 09/03/24 Complete 20:21 Basic Metabolic Panel LAB 09/03/24 Complete 20:21 Lactated Ringers PHA 09/03/24 Complete 1000ml (Lactated 21:54 Culture Urine ZACKERY 09/04/24 In Process 00:05 Current Medications Medications (Trade) Dose Ordered Sig/Ge Route PRN Reason Start Time Stop Time Status Last Admin Dose Admin Lactated Ringer's (Lactated Ringers 1000ml) 1,000 ml BOLUS STAT IV 09/03/24 21:54 09/03/24 21:56 DC 09/03/24 22:05 Vital Signs Date Time Temp Pulse Resp B/P (MAP) Pulse Ox O2 Delivery O2 Flow Rate FiO2 09/03/24 19:39 99.5 91 18 131/51 95 Nasal Cannula 2.0 DX & DISP Disposition: Discharge Departure Impression: Primary Impression: UTI (urinary tract infection) Condition: Stable Scripts Nitrofurantoin Monohyd/M-Cryst (Macrobid 100 mg Capsule) 100 Mg Capsule 1 CAP PO BID for 7 Days, #14 CAP 0 Refills Prov: FRANCHESKA PAIZ MD 09/04/24 Referrals: ARTURO PEREZ MD (PCP) FRANCHESKA PAIZ MD Sep 04, 2024 00:31
[2024-09-04] MEDS: CIPROFLOXACIN HCL 500 MG TABLET PO ONE (00:54)
[2024-09-04 01:04] VITALS: BP 119/82; PULSE 83; RESP 18; TEMP 98.6; O2SAT 98
== END 2024-09-04 01:27 | disposition home or self-care (01) ==
LOC: EDH 19:27
DX: N39.0 Urinary tract infection, site not specified (principal); E11.9 Type 2 diabetes mellitus without complications; E78.00 Pure hypercholesterolemia, unspecified; F03.93 Unspecified dementia, unspecified severity, with mood disturbance; F03.94 Unspecified dementia, unspecified severity, with anxiety; F31.9 Bipolar disorder, unspecified; I10 Essential (primary) hypertension; J44.9 Chronic obstructive pulmonary disease, unspecified; Z79.51 Long term (current) use of inhaled steroids; Z79.84 Long term (current) use of oral hypoglycemic drugs; Z79.899 Other long term (current) drug therapy; Z88.0 Allergy status to penicillin; Z90.49 Acquired absence of other specified parts of digestive tract; Z98.890 Other specified postprocedural states
CPT/HCPCS: 99283; 80048; 85025; 87086 ×2; 87186; 81001; 36415; J7120

== ENCOUNTER 2025-03-23 18:23 | Emergency (ER) | payer MEDICAID, OTHER ==
[~2025-03-23] VITALS: Ht 147.3 cm; Wt 76.2 kg
[~2025-03-23 18:23] MED LIST changes: +NITR100C4 PO
[2025-03-23 19:07] LABS: IMMATURE GRANULOCYTE ABSOLUTE 0.09 K/uL (0-1); NUCLEATED RED BLOOD CELLS 0.0 % (0.0-0.19); PLATELET COUNT (AUTO) 296 K/uL (130-400); RED BLOOD CELL COUNT(AUTO) 4.23 MIL/uL (4.00-5.50); RED CELL DISTRIBUTION WIDTH 13.3 % (11.0-15.5); WHITE BLOOD COUNT (AUTO) 14.7 K/uL (4.8-10.8)
--- NOTE | 2025-03-23 19:08 | NUR ---
PT CARE ASSUMED AT THIS TIME
[2025-03-23 19:13] LABS: CREATININE 0.9 mg/dL (0.5-1.0); GLOMERULAR FILTR. RATE CALC 67.0 mL/min (>90); GLUCOSE,RANDOM 107.0 mg/dL (70-105); SODIUM SERUM 128.0 mmol/L (136-145); UREA NITROGEN, BLOOD 16.0 mg/dL (7-18)
[2025-03-23 20:03] LABS: ADD UA MICROSCOPIC YES; APPEARANCE,URINE TURBID (CLEAR); GLUCOSE, URINE (UA) NEGATIVE (NEGATIVE); LEUKOCYTE ESTERASE ,URINE 250 Leu/uL (NEGATIVE); NITRATE,URINE NEGATIVE (NEGATIVE); OCCULT BLOOD,URINE +- (TRACE) (NEGATIVE)
[2025-03-23 20:06] LABS: NON-SQUAMOUS EPITHELIAL CELL 1 /HPF (0-2); SQUAMOUS EPITHELIAL CELL,UR RARE /HPF (0-2); UNCLASSIFIED CRYSTAL 74 /HPF (None Seen); WBC CLUMP RARE /HPF (0-1)
--- NOTE | 2025-03-23 20:17 | NUR ---
TRAFFIC SIGN ERECTION SUPERVISOR ROSAURA NOTIFIED ABOUT BP
[2025-03-23 20:24] LABS: SARS-CoV-2, RNA, NAAT NEGATIVE SARS CoV-2 (NEGATIVE)
[2025-03-23 20:27] LABS: INFLUENZA TYPE A Negative For Type A (NEGATIVE); INFLUENZA TYPE B Negative For Type B (NEGATIVE)
--- NOTE | 2025-03-23 20:39 | HMCIMG ---
EXAM: CR left Rib, 5 View. CLINICAL HISTORY: sore, fall, left side chest pain COMPARISON: None provided. FINDINGS: LUNGS: The visualized lungs appear essentially clear. PLEURAL SPACES: No pneumothorax evident. No pleural effusions. BONES: No visible acute rib fracture. IMPRESSION: No visible acute rib fracture. No pneumothorax. /[place]
--- NOTE | 2025-03-23 20:47 | ERN ---
ED Note History of Present Illness Stated Complaint: CHEST PAIN Chief Complaint: Chest Pain Time Seen by MD: 18:41 Time Seen by Midlevel: 18:44 Dictation: 75-year-old female brought in by son for left chest wall pain. As per son earlier this morning patient was coming from the bathroom tripped on her oxygen cord and fell says she hit her left chest on the edge of the mattress. Denies any head injury, no LOC. Patient is complaining of left chest wall pain. Denies having any shortness a breath, nausea, vomiting, fever. Allergies: Coded Allergies: Penicillins (Unverified Allergy, Mild, RASH, 06/13/17) Home Meds Active Scripts Sulfamethoxazole/Trimethoprim (Bactrim Ds Tablet) 800 Mg-160 Mg Tablet, 1 TAB PO BID for 7 Days, #14 TAB 0 Refills Prov:ROSAURA LORA CNP 03/23/25 Nitrofurantoin Monohyd/M-Cryst (Macrobid 100 mg Capsule) 100 Mg Capsule, 1 CAP PO BID for 7 Days, #14 CAP 0 Refills Prov:FRANCHESKA PAIZ MD 09/04/24 Azithromycin (Zithromax Tri-Nolberto) 500 Mg Tablet, 500 MG PO DAILY for 5 Days, #5 TAB Prov:FRANSICO GUTIERREZP 07/10/24 Methylprednisolone (Medrol) 4 Mg Tab.ds.pk, 1 TAB PO AD for 6 Days, #21 TAB 0 Refills 6 on day 1 then reduce by one tablet daily until gone Prov:FRANSICO GUTIERREZP 07/10/24 Ibuprofen (Ibuprofen 800 mg Tab) 800 Mg Tab, 800 MG PO Q8H PRN for fever or pain, #30 TAB 0 Refills Prov:FRANSICO GUTIERREZP 07/10/24 Reported Medications Atorvastatin Calcium (Atorvastatin Calcium) 80 Mg Tablet, 80 MG PO HS, TAB 01/18/23 Fluticasone/Vilanterol (Breo Ellipta 200-25 Mcg INH) 200 Mcg-25 Mcg/Dose Blst.w.dev, 1 EACH IH DAILY 01/18/23 Sitagliptin Phosphate (Januvia) 100 Mg Tablet, 100 MG PO DAILY, TAB 08/26/22 Levothyroxine Sodium (Levothyroxine) 88 Mcg Capsule, 88 MCG PO ACBKFST, CAP 5/29/23 Olanzapine (Olanzapine) 10 Mg Tablet, 10 MG PO HS, TAB 08/26/22 Donepezil HCl (Donepezil HCl) 10 Mg Tablet, 10 MG PO HS, TAB 08/26/22 Ramipril (Ramipril) 2.5 Mg Capsule, 2.5 MG PO DAILY, CAP 08/26/22 Escitalopram Oxalate (Escitalopram Oxalate) 20 Mg Tablet, 20 MG PO DAILY, TAB 08/26/22 Past Medical History Past Medical History: Anxiety, Bipolar, COPD, Dementia, Depression, Diabetes- Type II, High Cholesterol, Hypertension, Hypothyroid, Other Additional Past Medical Hx: OSTEOPOROSIS Surgical History: Cholecystectomy Surgical History Other: RT MASTECTOMY Family History: CAD, DM, HTN Social History: Negative, Lives with family History: Not Applicable Review of System Dictation Constitutional: Negative for fever,chills, and weight loss Eyes: Negative for injury, pain,redness, and discharge ENT: Negative for injury,pain or swelling Cardiovascular: Left chest wall pain Respiratory: Negative for shortness of breath, cough, and wheezing, Abdomen/GI: Negative for abdominal pain, nausea, vomiting, diarrhea, and constipation Back: Negative for injury and pain : Negative for injury, bleeding and discharge MS/Extremity: Negative for injury and deformity Skin: Negative for rash, and discoloration Neuro: Negative for headache, weakness, numbness, tingling, and seizure Psych: Negative for suicide ideation, homicidal ideation, and hallucinations Review of Systems: was completed Initial Vital Sign VS Vital Signs Date Time Temp Pulse Resp B/P (MAP) Pulse Ox O2 Delivery O2 Flow Rate FiO2 03/23/25 18:39 98.1 80 18 174/74 98 Nasal Cannula 2.0 03/23/25 19:51 28 Physical Exam Dictation General: awake, alert, NAD Head/Face: Normocephalic, atraumatic Eyes: PERRL, EOMI, vision at baseline ENT: oral cavity clear, TMs clear, no signs of infection Neck: Trachea midline, supple, no nuchal rigidity Cardiovascular: RRR, normal S1/S2, No MRGs, no JVD, mild follow up pain to palpation to the left chest wall along the axillary Respiratory: CTAB, no respiratory distress, No rales or wheezes Abdomen: Soft, non-tender, non-distended, normal bowel sounds, no guarding or rebound. Skin: Warm, dry, normal turgor, no rash MS/Extremity: Pulses equal, no cyanosis, neurovascular intact, FROM Neuro: COAx4, GCS 15, strength 5/5, CN 2-12 intact, normal cerebellar exam, normal gait, Psych: Normal behavior, mood, and affect normal Results (Laboratory/Radiology) Laboratory/Radiology Laboratory Tests Test 03/23/25 18:56 03/23/25 19:54 03/23/25 19:59 White Blood Count 14.7 K/uL (4.8-10.8) H Red Blood Count 4.23 MIL/uL (4.00-5.50) Hemoglobin 12.2 g/dL (12.0-16.0) Hematocrit 36.3 % (36-48) Mean Corpuscular Volume 85.8 fL (79-99) Mean Corpuscular Hemoglobin 28.8 pg (27.0-33.0) Mean Corpuscular Hemoglobin Concent 33.6 g/dL (32.0-36.0) Red Cell Distribution Width 13.3 % (11.0-15.5) Platelet Count 296 K/uL (130-400) Mean Platelet Volume 9.9 fL (7.5-10.5) Immature Granulocyte % (Auto) 0.6 % (0-1) Neutrophils (%) (Auto) 68.3 % (40.0-77.0) Lymphocytes (%) (Auto) 20.4 % (21.0-51.0) L Monocytes (%) (Auto) 8.3 % (3.0-13.0) Eosinophils (%) (Auto) 2.1 % (0.0-8.0) Basophils (%) (Auto) 0.3 % (0.0-5.0) Neutrophils # (Auto) 10.0 K/uL (1.8-7.7) H Lymphocytes # (Auto) 3.0 K/uL (1.0-4.8) Monocytes # (Auto) 1.2 K/uL (0.1-1.0) H Eosinophils # (Auto) 0.31 K/uL (0.00-0.70) Basophils # (Auto) 0.05 K/uL (0.00-0.20) Absolute Immature Granulocyte (auto 0.09 K/uL (0-1) Nucleated Red Blood Cells 0.0 % (0.0-0.19) Sodium Level 128 mmol/L (136-145) L Potassium Level 4.0 mmol/L (3.5-5.1) Chloride Level 91 mmol/L (101-111) L Carbon Dioxide Level 30 mmol/L (21-32) Blood Urea Nitrogen 16 mg/dL (7-18) Creatinine 0.9 mg/dL (0.5-1.0) Glomerular Filtration Rate Calc 67 mL/min (>90) Random Glucose 107 mg/dL (70-105) H Total Calcium 8.8 mg/dL (8.5-10.1) Troponin I High Sensitivity 22 ng/L (4-50) B-Type Natriuretic Peptide 19 pg/mL (0-100) Lipase 71 U/L (16-77) Urine Color LIGHT-ORANGE (YELLOW) Urine Appearance TURBID (CLEAR) Urine pH 5.5 (5.0-8.0) Urine Specific [place] 1.003 (1.001-1.031) Urine Protein NEGATIVE mg/dL (NEGATIVE) Urine Glucose (UA) NEGATIVE mg/dL (NEGATIVE) Urine Ketones NEGATIVE mg/dL (NEGATIVE) Urine Occult Blood +- (TRACE) (NEGATIVE) H Urine Nitrate NEGATIVE (NEGATIVE) Urine Bilirubin NEGATIVE mg/dL (NEGATIVE) Urine Urobilinogen 0.2 mg/dL (0.2-1.0) Urine Leukocyte Esterase 250 Kathy/uL (NEGATIVE) H Urine RBC 6-10 /HPF (0-1) H Urine WBC 26-50 /HPF (0-1) H Urine WBC Clumps (Auto) RARE /HPF (0-1) Urine Squamous Epithelial Cells RARE /HPF (0-2) Urine Non-Squamous Epithelial Cells 1 /HPF (0-2) Urine Other Crystals (Auto) 74 /HPF (None Seen) Urine Bacteria MOD /HPF (None Seen) Influenza Type A Antigen Negative For Type A Influenza Type B Antigen Negative For Type B SARS-CoV-2, RNA, NAAT NEGATIVE SARS CoV-2 Labs Reviewed?: Yes EKG Comment: EKGs did not 1842. Sinus rhythm with a rate 76. Left axis deviation. X-RAY Comment: [facility] [address] [place] [address] IMAGING REPORT Signed PATIENT: GAURAV KOCH MR#: [id number] : 1950 SEX: F AGE: 75 LOCATION: [facility] ORDER 48 STATUS: REG ER REPORT#: [id number] SERVICE 44 REASON: sob, fall, l side chest pain ORDERING PHYSICIAN: ROSAURA LORA CNP PROCEDURE: RIB LT W C - RIBS UNI LT W PA CHEST 3+VWS EXAM: CR left Rib, 5 View. CLINICAL HISTORY: sore, fall, left side chest pain COMPARISON: None provided. FINDINGS: LUNGS: The visualized lungs appear essentially clear. PLEURAL SPACES: No pneumothorax evident. No pleural effusions. BONES: No visible acute rib fracture. IMPRESSION: No visible acute rib fracture. No pneumothorax. /[place] DICTATED BY: AMAYA AGRAWAL Jr., MD DATE: 03/23/252137 ELECTRONICALLY SIGNED BY: AMAYA AGRAWAL Jr., MD DATE: 03/23/252137 ED Course ED Course Orders Procedure Category Date Status Time Cbc With Differential LAB 03/23/25 Complete 18:42 Basic Metabolic Panel LAB 03/23/25 Complete 18:42 Troponin I High LAB 03/23/25 Complete Sensitivity 18:42 B-Type Natriuretic LAB 03/23/25 Complete Peptide 18:42 Urinalysis Profile LAB 03/23/25 Complete 18:42 Lipase LAB 03/23/25 Complete 18:42 Ribs Uni Lt W Pa RAD 03/23/25 Resulted Chest 3+Vws 18:45 12 Lead Ekg Tracing- EKG 03/23/25 Logged Technical 18:51 Covid Rna Naat LAB 03/23/25 Complete 19:10 Influenza Type A & B, LAB 03/23/25 Complete Rapid 19:10 Culture Urine ZACKERY 03/23/25 In Process 20:04 0.9%Nacl 1000ml (Ns PHA 03/23/25 In Process 1000ml) 20:39 Sulfamethox-Tmp Ds PHA 03/23/25 Complete 800/160 Tab (Bactrim 20:39 Current Medications Medications (Trade) Dose Ordered Sig/Ge Route PRN Reason Start Time Stop Time Status Last Admin Dose Admin Sodium Chloride 1,000 ml @ 100 mls/hr Q10H STAT IV 03/23/25 20:39 03/24/25 06:38 Trimethoprim/ Sulfamethoxazole (BactRIM DS) 1 tab ONCE STAT PO 03/23/25 20:39 03/23/25 20:44 DC Vital Signs Date Time Temp Pulse Resp B/P (MAP) Pulse Ox O2 Delivery O2 Flow Rate FiO2 03/23/25 19:51 98.1 75 16 180/67 100 Nasal Cannula* 2 28 03/23/25 18:39 98.1 80 18 174/74 98 Nasal Cannula 2.0 Medical Decision Making MDM MDM: 75-year-old female presents with a left-sided chest wall pain after striking her chest on the edge of her bed last night. She reports no head impact but no loss of consciousness, vomiting, confusion, slurred speech or focal weakness. Patient states she hit the edge of the mattress with her chest and now has pain on palpation. Patient has a medical history of hypertension, diabetes, history of COPD with the oxygen dependent on 2 L. On physical exam patient is alert, oriented, nontoxic. Localized tenderness to the left chest wall pain no crepitus or deformity. Lungs clear no respiratory d istress. Neuro exam intact. Abdominal exam benign. Patient is ambulating with walker. White count of 14, chemistry shows hyponatremia noted however appears to be chronic patient's baseline as from previous values however as per patient's son patient looks better today than previous said that she has been here. Patient is ambulatory with her walker awake alert and oriented. UA shows evidence of urinary tract infection. COVID and influenza negative. Chest x-ray shows no acute fracture pneumothorax or consolidation this is interpreted by ER MD. EKGs shows no acute finding. Troponin is negative. In the ED patient received fluids and antibiotic. Your along patient has leukocytosis and confirmed UTI recurrent IV hydration and potentially IV antibiotics due to age and comorbidities. Recommended hospital admission for IV antibiotics and monitoring and correction of electrolytes. Despite strong medical recommendation patient declined admission states she would rather go home in the family we will care for her. She is alert and oriented demonstrates decision-making capacity. At bedside states that he will take care of her at home. Patient demonstrated capacity verbalized understanding of risks of untreated infection including sepsis, hospitalization, and get continued to declined admission. Educated family your on return precautions including fever, worsening weakness, confusion, inability to urinate, vomiting, worsening chest pain, syncope. Son at bedside verbalized understanding, answered all q uestions. Differential diagnosis: Chest wall contusion, rib fracture, pneumonia, COPD flare, UTI with a possible early sepsis, dehydration, ACS Rationale: Tests considered and ordered secondary to shared decision making include: Previous outside records reviewed: Old ER visits. Risk of complication and/or morbidity or mortality of patient management: None Medications-Per medication reconciliation Need for hospitalization: Patient does not meet criteria for hospitalization. Need for emergency major/minor surgery: No There are no social concerns with this patient. Prescription drug management Prescriptions will include symptomatic care Patient's prior external medical records from other ER visits were reviewed by me as indicated. Prior testing and results from previous visits were reviewed. Prior tests were taken into account with medical decision making and resource utilization, independent historian/historians were used to obtain complete medical history. I independently interpreted the test that were performed, results were reviewed by me and considered findings on radiology if ordered. Medical management and examination interpretation discussions were had by me with other qualified healthcare professionals as indicated for the patient's care. DX & DISP Disposition: Discharge Departure Impression: Primary Impression: UTI (urinary tract infection) Condition: Stable Scripts Sulfamethoxazole/Trimethoprim (Bactrim Ds Tablet) 800 Mg-160 Mg Tablet 1 TAB PO BID for 7 Days, #14 TAB 0 Refills Prov: ROSAURA LORA CNP 03/23/25 Additional Instructions: Take antibiotics as prescribed. Return patient to the hospital if she has worsening weakness, fever, back pain, altered mental status, confusion. Otherwise follow up with the primary doctor in 2-3 days. Referrals: ARTURO PEREZ MD (PCP) Time of Disposition: 20:54 I have reviewed the case, and I agree with, Diagnosis and Plan ROSAURA LORA CNP Mar 23, 2025 20:47
[2025-03-23] MEDS ORDERED: SULF1TAB42 PO (20:54)
[2025-03-23] MEDS: 0.9%NACL 1000ML 1,000 ML IV STA (21:12)
--- NOTE | 2025-03-23 21:44 | NUR ---
FLUIDS RUNNING AT THIS TIME. PENDING FLUIDS TO FINISH TO DISCHARGE PT.
[2025-03-23 22:12] VITALS: BP 157/62; PULSE 75; RESP 15; TEMP 98.1; O2SAT 100
--- NOTE | 2025-03-25 11:10 | EKG ---
[facility] Test Date: 2025-03-23 Test Time: 18:42:00 Pat Name: GAURAV KOCH Department: [facility] Room: Gender: F [employer] Attendant: [id number] : 1950 Requested By: HARMONY POWER Order Number: [id number] Reading MD: Corinne Sharif Measurements Intervals [place] Rate: 76 P: 0 NM: 71 QRS: -64 QRSD: 95 T: 64 QT: 418 QTc: 470 Interpretive Statements Sinus rhythm Left axis deviation Compared to ECG 08/14/2024 23:56:42 No significant changes Electronically Signed On 03-28-2025 08:50:25 RN WELLNESS by Corinne Sharif Please click the below link to view image of tracing.
== END 2025-03-23 22:28 | disposition home or self-care (01) ==
LOC: EDH 18:23
DX: N39.0 Urinary tract infection, site not specified (principal); R07.89 Other chest pain; I10 Essential (primary) hypertension; F31.9 Bipolar disorder, unspecified; F03.94 Unspecified dementia, unspecified severity, with anxiety; J44.9 Chronic obstructive pulmonary disease, unspecified; E11.9 Type 2 diabetes mellitus without complications; E78.00 Pure hypercholesterolemia, unspecified; E03.8 Other specified hypothyroidism; F03.93 Unspecified dementia, unspecified severity, with mood disturbance; M81.0 Age-related osteoporosis without current pathological fracture; Z20.822 Contact with and (suspected) exposure to COVID-19; Z88.0 Allergy status to penicillin; Z79.899 Other long term (current) drug therapy; Z79.84 Long term (current) use of oral hypoglycemic drugs; Z79.51 Long term (current) use of inhaled steroids; Z90.11 Acquired absence of right breast and nipple; Z90.49 Acquired absence of other specified parts of digestive tract; W18.09XA Striking against other object with subsequent fall, initial encounter; Y93.89 Activity, other specified; Y92.091 Bathroom in other non-institutional residence as the place of occurrence of the external cause; Y99.8 Other external cause status
CPT/HCPCS: 99285; 87635; 84484; 80048; 83880; 83690; 85025; 87086; 87186; 87804 ×2; 81001; 36415; 71101; 93005; J7030